=== PATIENT | female | born 1965 | race Caucasian/White ===

== ENCOUNTER 2017-09-27 14:09 | Emergency (ER) | payer SELFPAY ==
--- NOTE | 2017-09-27 14:38 | ER Document Report ---
ED Blood Pressure Problem - General Chief Complaint: High Blood Pressure Stated Complaint: HEADACHE, CHEST PAIN Time Seen by Provider: 09/27/17 14:33 Notes: 52-year-old female patient, obese, hypertensive, smoker who had a syncopal episode. Does not remember what happened. States that she had a severe headache for the last several days. Did not sleep last night because her blood pressure was high and her head was throbbing. States that her blood pressure was 250/120. States that she was admitted to the hospital at [facility] approximately 2 months ago for chest pain and hypertension. Spent 4 days in the hospital trying to get her blood pressure down. When she was discharged she never got her prescriptions filled and has continued to do the same things that she was doing prior to admission to the hospital at that time. States that her family members found her on the floor. Denies any contusion to her head. Denies any neck pain. States that she could not sleep last night her blood pressure is high so she drank a whole bunch of water last night and then drink much water this morning as well trying to get her blood pressure down because water helps with blood pressure. Denies any complaints at this time other than a headache. Does have some mild chest pain at this time. TRAVEL OUTSIDE OF THE [place] IN LAST 30 DAYS: No - HPI Patient complains to provider of: High blood pressure Onset: Just prior to arrival Onset/Duration: Sudden Quality of pain: Achy Severity: Moderate Pain Level: 3 - Related Data Allergies/Adverse Reactions: tramadol Allergy (Verified 09/27/17 14:20) Past Medical History - General Information source: Patient - Social History Smoking Status: Current Every Day Smoker Cigarette use (# per day): Yes Frequency of alcohol use: None Drug Abuse: None Lives with: Family Family History: Reviewed & Not Pertinent - Past Medical History Cardiac Medical History: Reports: Hx Hypertension Endocrine Medical History: Reports: Hx Hypothyroidism - Had hyper parathyroid had XRT now has hypo- GI Medical History: Reports: Hx Colonoscopy - Polypectomy Past Surgical History: Reports: Hx Cholecystectomy, Hx Hysterectomy - Immunizations Hx Diphtheria, Pertussis, Tetanus Vaccination: Yes Review of Systems - Review of Systems Constitutional: denies: Fever, Malaise, Weakness EENT: denies: Blurred vision, Difficulty swallowing, Mouth pain Cardiovascular: Chest pain, Syncope. denies: Palpitations, Heart racing, Dyspnea, Dizziness Respiratory: denies: Cough, Hurts to breathe, Short of breath, Wheezing Gastrointestinal: denies: Abdominal pain, Diarrhea, Nausea, Vomiting Female Genitourinary: denies: , Irregular period, Vaginal discharge, Vaginal bleeding Musculoskeletal: denies: Back pain, Joint pain, Muscle pain Skin: denies: Dryness, Lesions, Lumps, Rash Hematologic/Lymphatic: denies: Anemia, Blood clots, Easy bleeding, Easy bruising Neurological/Psychological: denies: Confusion, Weakness, Numbness Physical Exam - Vital signs Vitals: Resp Pulse Ox 19 96 09/27/17 14:34 09/27/17 14:34 Interpretation: Hypertensive, Bradycardic. No: Tachypneic, Febrile - General General appearance: Appears well, Alert - HEENT Head: Normocephalic, Atraumatic Eyes: Normal Pupils: PERRL - Respiratory Respiratory status: No respiratory distress Chest status: Nontender Breath sounds: Normal Chest palpation: Normal - Cardiovascular Rhythm: Bradycardia Heart sounds: Normal auscultation Murmur: No - Abdominal Inspection: Normal Distension: No distension Bowel sounds: Normal Tenderness: Nontender Organomegaly: No organomegaly - Back Back: Normal, Nontender - Extremities General upper extremity: Normal inspection, Nontender, Normal color, Normal ROM , Normal temperature General lower extremity: Normal inspection, Nontender, Normal color, Normal ROM , Normal temperature, Normal weight bearing. No: Jordyn's sign - Neurological Neuro grossly intact: Yes Cognition: Normal Orientation: AAOx4 Flavia Coma Scale Eye Opening: Spontaneous [place] Coma Scale Verbal: Oriented [place] Coma Scale Motor: Obeys Commands Flavia Coma Scale Total: 15 Speech: Normal Motor strength normal: LUE, RUE, LLE, RLE Sensory: Normal - Psychological Associated symptoms: Normal affect, Normal mood - Skin Skin Temperature: Warm Skin Moisture: Dry Skin Color: Normal Course - Re-evaluation Re-evalutation: 09/27/17 18:06 Patient self reports as a syncopal episode while at home. Unwitnessed. Recently discharged from [facility] after workup. Patient states that it was a few weeks ago but in reality it was in April. At that time she was advised to start on amlodipine, aspirin, Lipitor and lisinopril which she has not done. At that time she had CT angiogram of the chest, CT coronary artery angiogram, stress test, multiple cardiac labs, evaluation by raker buffing wheel. All of these findings were unremarkable. Patient states that she is not taking her medications. At this time do not have a clear understanding of why she had a syncopal episode. Of note the medical records received reports that she has had significant bradycardia while she was in the hospital but did not have any AV tameka blocking agents. Will discuss for admission versus observation versus discharge at this time. Patient does not want to stay by the way. 09/27/17 18:55 Repeat EKG performed. Heart rate in the 40s with a sinus bradycardia 47 and biphasic T-wave in V3. At this time patient saying that she feels like an elephant is sitting on obviously uncomfortable discharging her. I did not initially call for an admission due to the fact that she said she had already had multiple things done at [facility]. Records were received per above. Will consult with hospitalist for admission at this time 09/27/17 19:36 Patient having other episode of chest pressure. Heart rate bradycardia down into the low 40s. Blood pressure dropped. At that time she felt the worst. When her blood pressure came back up she said she was feeling better. Patient had only had a Percocet. At this time I did consult with the hospitalist for admission. We are concerned about symptomatic bradycardia and feel it would be more appropriate to have her seen at a facility that had fish skinning machine feeder as well as memorial counselor. Will call [facility] as she has been seen there prior to see if we can transfer her at this time. 09/27/17 20:05 At this time will transfer to [facility]. Dr. Devries accepting 09/27/17 21:43 Transport is available at this time. Patient reexamined. Remained stable for transport. - Vital Signs Vital signs: Temp Pulse Resp BP Pulse Ox 18 187/112 H 98 09/27/17 21:31 09/27/17 21:31 09/27/17 21:31 - Laboratory Result Diagrams: 09/27/17 14:38 09/27/17 14:38 Laboratory results interpreted by me: 09/27/17 09/27/17 09/27/17 14:38 14:38 15:49 RDW 14.4 H Sodium 146.0 H Est GFR (Non-Af Amer) 55 L Urine Blood SMALL H Ur Leukocyte Esterase LARGE H - EKG Interpretation by Me EKG shows normal: Sinus rhythm, Etta, Intervals, QRS Complexes, ST-T Waves Rate: Bradycardia Critical Care Note - Critical Care Note Total time excluding time spent on procedures (mins): 60 Comments: Uncontrolled hypertension, symptomatic bradycardia Discharge - Discharge Clinical Impression: Hypertensive emergency, Symptomatic bradycardia, Syncope and collapse Condition: Good Disposition: [facility]
--- NOTE | 2017-09-27 15:20 | RADIOLOGY REPORT (SQ) ---
EXAM DESCRIPTION: CT HEAD WITHOUT COMPLETED DATE/TIME: 09/27/2017 3:10 pm REASON FOR STUDY: headache, syncope COMPARISON: None. TECHNIQUE: Axial images acquired through the brain without intravenous contrast. Images reviewed wi th bone, brain and subdural windows. Images stored on PACS. All CT scanners at this facility use dose modulation, iterative reconstruction, and/or weight based d osing when appropriate to reduce radiation dose to as low as reasonably achievable (ALARA). [facility]: Dose Right [facility]: CareDose [facility]: Dose Right [facility]: Teradose 4D [facility]: StandardNine RADIATION DOSE: CT Rad equipment meets quality standard of care and radiation dose reduction techniq ues were employed. CTDIvol: 53.2 mGy. DLP: 991 mGy-cm. mGy. LIMITATIONS: None. FINDINGS: VENTRICLES: Normal size and contour. CEREBRUM: No masses. No hemorrhage. No midline shift. No evidence for acute infarction. Normal gra y/white matter differentiation. No areas of low density in the white matter. CEREBELLUM: No masses. No hemorrhage. No alteration of density. No evidence for acute infarction. EXTRAAXIAL SPACES: No fluid collections. No masses. ORBITS AND GLOBE: No intra- or extraconal masses. Normal contour of globe without masses. CALVARIUM: No fracture. PARANASAL SINUSES: No fluid or mucosal thickening. SOFT TISSUES: No mass or hematoma. OTHER: No other significant finding. IMPRESSION: NORMAL BRAIN CT WITHOUT CONTRAST. EVIDENCE OF ACUTE STROKE: NO. COMMENT: Quality ID # [id number]: Final reports with documentation of one or more dose reduction techniques (e.g., Automated exposure control, adjustment of the mA and/or kV according to patient size, use of iterative reconstruction technique) TECHNICAL DOCUMENTATION: JOB ID: [id number] [employer]- All Rights Reserved Reading location - IP/workstation name: [email or web address]
[2017-09-27 15:22] LABS: ABSOLUTE BASOPHILS # (AUTO) 0.1 10^3/uL (0.0-0.2); ABSOLUTE EOSINOPHILS # (AUTO) 0.2 10^3/uL (0.0-0.6); ABSOLUTE LYMPHOCYTES (AUTO) 1.8 10^3/uL (0.5-4.7); ABSOLUTE MONOCYTES (AUTO) 0.3 10^3/uL (0.1-1.4); ABSOLUTE NEUT (AUTO) 4.5 10^3/uL (1.7-8.2); BASOPHILS % (AUTO) 1.1 % (0-2); EOSINOPHILS % (AUTO) 2.3 % (0-6); HEMATOCRIT 39.2 % (36.0-47.0); HEMOGLOBIN 13.9 g/dL (12.0-15.5); LYMPHOCYTES % (AUTO) 26.1 % (13-45); MEAN CORPUSCULAR HEMOGLOBIN 31.9 pg (27.0-33.4); MEAN CORPUSCULAR HGB CONC 35.5 g/dL (32.0-36.0); MEAN CORPUSCULAR VOLUME 90 fl (80-97); MONOCYTES % (AUTO) 4.6 % (3-13); PLATELET COUNT 166 10^3/uL (150-450); RED BLOOD COUNT 4.36 10^6/uL (3.72-5.28); RED CELL DISTRIBUTION WIDTH 14.4 % (11.5-14.0); SEGMENTED NEUTROPHILS % (AUTO) 65.9 % (42-78); TOTAL CELLS COUNTED % (AUTO) 100 %; WHITE BLOOD COUNT 6.8 10^3/uL (4.0-10.5)
[2017-09-27 15:30] LABS: ALANINE AMINOTRANSFERASE 28 U/L (9-52); ALBUMIN 3.8 g/dL (3.5-5.0); ALKALINE PHOSPHATASE 54 U/L (38-126); ANION GAP 12 (5-19); ASPARTATE AMINO TRANSFERASE 25 U/L (14-36); BILIRUBIN,DIRECT 0.3 mg/dL (0.0-0.4); BILIRUBIN,TOTAL 0.7 mg/dL (0.2-1.3); BLOOD UREA NITROGEN 18 mg/dL (7-20); CALCIUM 9.3 mg/dL (8.4-10.2); CARBON DIOXIDE 28 mmol/L (22-30); CHLORIDE 106 mmol/L (98-107); CREATINE KINASE 88 U/L (30-135); GLUCOSE 79 mg/dL (75-110); POTASSIUM 3.6 mmol/L (3.6-5.0); TOTAL PROTEIN 6.6 g/dL (6.3-8.2)
--- NOTE | 2017-09-27 15:32 | RADIOLOGY REPORT (SQ) ---
EXAM DESCRIPTION: CHEST SINGLE VIEW COMPLETED DATE/TIME: 09/27/2017 3:21 pm REASON FOR STUDY: syncope COMPARISON: None. EXAM PARAMETERS: NUMBER OF VIEWS: One view. TECHNIQUE: Single frontal radiographic view of the chest acquired. RADIATION DOSE: NA LIMITATIONS: None. FINDINGS: LUNGS AND PLEURA: No opacities, masses or pneumothorax. No pleural effusion. MEDIASTINUM AND HILAR STRUCTURES: No masses. Contour normal. HEART AND VASCULAR STRUCTURES: Heart normal in size. Normal vasculature. BONES: No acute findings. HARDWARE: None in the chest. OTHER: No other significant finding. IMPRESSION: NO ACUTE RADIOGRAPHIC FINDING IN THE CHEST. TECHNICAL DOCUMENTATION: JOB ID: [id number] [employer]- All Rights Reserved Reading location - IP/workstation name: [email or web address]
[2017-09-27 15:38] LABS: CREATINE KINASE MB 1.39 ng/mL (<4.55)
[2017-09-27 15:40] LABS: TROPONIN I < 0.012 ng/mL
[2017-09-27] MEDS ORDERED: OXYCODONE-ACETAMINOPHEN 5-325 MG TABLET PO ONE (16:50)
[2017-09-27] MEDS ORDERED: HYDRALAZINE HCL 25 MG TABLET PO ONE (16:51)
--- NOTE | 2017-09-27 17:58 | EKG REPORT ---
SEVERITY:- BORDERLINE ECG - SINUS RHYTHM BORDERLINE T ABNORMALITIES, INFERIOR LEADS : Confirmed by: Norah Cook 27-Sep-2017 17:58:15
[2017-09-27 18:28] LABS: AMORPHOUS SEDIMENT,URINE TRACE /HPF; APPEARANCE,URINE CLOUDY; BILIRUBIN,URINE NEGATIVE (NEGATIVE); COLOR,URINE YELLOW; GLUCOSE, URINE NEGATIVE (NEGATIVE); KETONES,URINE NEGATIVE (NEGATIVE); LEUKOCYTE ESTERASE,URINE LARGE (NEGATIVE); NITRITE,URINE NEGATIVE (NEGATIVE); PROTEIN,URINE NEGATIVE (NEGATIVE); URINE SPECIFIC GRAVITY 1.011; UROBILINOGEN,URINE NEGATIVE mg/dL (<2.0)
[2017-09-27 18:33] LABS: URINE AMPHETAMINES SCREEN NEGATIVE; URINE BARBITURATES SCREEN NEGATIVE; URINE BENZODIAZEPINES SCREEN NEGATIVE; URINE COCAINE SCREEN NEGATIVE; URINE MARIJUANA (THC) SCREEN NEGATIVE; URINE METHADONE SCREEN NEGATIVE; URINE PHENCYCLIDINE SCREEN NEGATIVE
[2017-09-27] MEDS ORDERED: ASPIRIN 325 MG TABLET PO ONE (20:05)
[2017-09-27] MEDS ORDERED: CIPROFLOXACIN HCL 500 MG TABLET PO ONE (20:24)
--- NOTE | 2017-09-27 21:35 | EKG REPORT ---
SEVERITY:- BORDERLINE ECG - SINUS RHYTHM BORDERLINE T ABNORMALITIES, ANT-LAT LEADS : Confirmed by: Norah Cook 27-Sep-2017 21:34:37
--- NOTE | 2017-09-27 21:35 | EKG REPORT ---
SEVERITY:- BORDERLINE ECG - SINUS BRADYCARDIA BORDERLINE T WAVE ABNORMALITIES : Confirmed by: Norah Cook 27-Sep-2017 21:34:48
[2017-09-27 21:48] VITALS: BP 168/102
== END 2017-09-27 21:49 | disposition short-term general hospital (02) ==
LOC: ER 14:09
DX: I16.1 Hypertensive emergency (principal); I10 Essential (primary) hypertension; T46.4X6A Underdosing of angiotensin-converting-enzyme inhibitors, initial encounter; T39.016A Underdosing of aspirin, initial encounter; T46.6X6A Underdosing of antihyperlipidemic and antiarteriosclerotic drugs, initial encounter; T46.1X6A Underdosing of calcium-channel blockers, initial encounter; Z91.128 Patient's intentional underdosing of medication regimen for other reason; Z91.14 Patient's other noncompliance with medication regimen; R00.1 Bradycardia, unspecified; R55 Syncope and collapse; R07.89 Other chest pain; R51 Headache; E66.9 Obesity, unspecified; F17.210 Nicotine dependence, cigarettes, uncomplicated; Z88.5 Allergy status to narcotic agent
CPT/HCPCS: 36415; 70450; 71045; 80053; 80307; 81001; 82550; 82553; 84484; 84703; 85025; 85379; 87086; 87088; 93005; 93010; 99291

== ENCOUNTER 2017-10-04 09:20 | Inpatient (IN) | payer SELFPAY ==
[2017-10-04] MEDS ORDERED: ASPIRIN 81 MG TABLET, CHEWABLE PO ONE (09:48)
[2017-10-04] MEDS ORDERED: NORMAL SALINE 1000 ML 1,000 ML IV ONE ×2 (09:49→13:14)
--- NOTE | 2017-10-04 09:51 | ER Document Report ---
ED Medical Screen (RME) - General Chief Complaint: Vomiting Stated Complaint: VOMITING Time Seen by Provider: 10/04/17 09:48 Notes: 52 years old female presents live with midsternal chest pain since last night. It is on and off. Nonradiating. Not associated with any nausea vomiting. Denies any palpitation or diaphoresis. She was treated and evaluated at [facility] for chest pain and elevated blood pressure. This started on 10 of amlodipine and 20 of lisinopril. Prior to that she was not taking any blood pressure medicines. Since she has been taking this medicine she is feeling dizzy lightheaded nauseous general malaise and feeling weak. Particularly when she stands up and start doing her daily activities. Presents today with a blood pressure of 102/80. TRAVEL OUTSIDE OF THE [place] IN LAST 30 DAYS: No - Related Data Allergies/Adverse Reactions: tramadol Allergy (Verified 10/04/17 09:21) Past Medical History - Social History Chew tobacco use (# tins/day): No Frequency of alcohol use: None Drug Abuse: None - Past Medical History Cardiac Medical History: Reports: Hx Hypertension Endocrine Medical History: Reports: Hx Hypothyroidism - Had hyper parathyroid had XRT now has hypo- Renal/ Medical History: Denies: Hx Peritoneal Dialysis GI Medical History: Reports: Hx Colonoscopy - Polypectomy Past Surgical History: Reports: Hx Cholecystectomy, Hx Hysterectomy - Immunizations Hx Diphtheria, Pertussis, Tetanus Vaccination: Yes Physical Exam - Vital signs Vitals: Temp Pulse Resp BP Pulse Ox 98.9 F 79 16 102/78 96 10/04/17 09:33 10/04/17 09:33 10/04/17 09:33 10/04/17 09:33 10/04/17 09:33 Course - Vital Signs Vital signs: Temp Pulse Resp BP Pulse Ox 98.9 F 79 16 102/78 96 10/04/17 09:33 10/04/17 09:33 10/04/17 09:33 10/04/17 09:33 10/04/17 09:33
[2017-10-04 10:16] LABS: ABSOLUTE BASOPHILS # (AUTO) 0.1 10^3/uL (0.0-0.2); ABSOLUTE LYMPHOCYTES (AUTO) 1.1 10^3/uL (0.5-4.7); ABSOLUTE MONOCYTES (AUTO) 0.5 10^3/uL (0.1-1.4); ABSOLUTE NEUT (AUTO) 15.6 10^3/uL (1.7-8.2); BASOPHILS % (AUTO) 0.3 % (0-2); EOSINOPHILS % (AUTO) 0.1 % (0-6); HEMATOCRIT 35.8 % (36.0-47.0); HEMOGLOBIN 12.5 g/dL (12.0-15.5); LYMPHOCYTES % (AUTO) 6.3 % (13-45); MEAN CORPUSCULAR HEMOGLOBIN 31.9 pg (27.0-33.4); MEAN CORPUSCULAR HGB CONC 34.9 g/dL (32.0-36.0); MEAN CORPUSCULAR VOLUME 91 fl (80-97); MONOCYTES % (AUTO) 3.1 % (3-13); PLATELET COUNT 116 10^3/uL (150-450); RED BLOOD COUNT 3.92 10^6/uL (3.72-5.28); RED CELL DISTRIBUTION WIDTH 13.9 % (11.5-14.0); SEGMENTED NEUTROPHILS % (AUTO) 90.2 % (42-78); TOTAL CELLS COUNTED % (AUTO) 100 %; WHITE BLOOD COUNT 17.3 10^3/uL (4.0-10.5)
[2017-10-04 10:45] LABS: ALANINE AMINOTRANSFERASE 26 U/L (9-52); ALBUMIN 3.8 g/dL (3.5-5.0); ALKALINE PHOSPHATASE 71 U/L (38-126); ANION GAP 14 (5-19); ASPARTATE AMINO TRANSFERASE 37 U/L (14-36); BILIRUBIN,DIRECT 0.8 mg/dL (0.0-0.4); BILIRUBIN,TOTAL 1.5 mg/dL (0.2-1.3); BLOOD UREA NITROGEN 25 mg/dL (7-20); CALCIUM 9.2 mg/dL (8.4-10.2); CARBON DIOXIDE 23 mmol/L (22-30); CHLORIDE 107 mmol/L (98-107); CREATINE KINASE 166 U/L (30-135); GLUCOSE 115 mg/dL (75-110); POTASSIUM 3.3 mmol/L (3.6-5.0); SODIUM 144.2 mmol/L (137-145); TOTAL PROTEIN 7.3 g/dL (6.3-8.2)
[2017-10-04 10:56] LABS: CREATINE KINASE MB 0.62 ng/mL (<4.55); TROPONIN I 0.024 ng/mL
--- NOTE | 2017-10-04 12:15 | RADIOLOGY REPORT (SQ) ---
EXAM DESCRIPTION: CHEST SINGLE VIEW COMPLETED DATE/TIME: 10/04/2017 12:06 pm REASON FOR STUDY: Chest pain COMPARISON: None. EXAM PARAMETERS: NUMBER OF VIEWS: One view. TECHNIQUE: Single frontal radiographic view of the chest acquired. RADIATION DOSE: NA LIMITATIONS: None. FINDINGS: LUNGS AND PLEURA: No opacities, masses or pneumothorax. No pleural effusion. MEDIASTINUM AND HILAR STRUCTURES: No masses. Contour normal. HEART AND VASCULAR STRUCTURES: Heart normal in size. Normal vasculature. BONES: No acute findings. HARDWARE: None in the chest. OTHER: No other significant finding. IMPRESSION: NO ACUTE RADIOGRAPHIC FINDING IN THE CHEST. TECHNICAL DOCUMENTATION: JOB ID: [id number] [employer]- All Rights Reserved Reading location - IP/workstation name: [email or web address]
--- NOTE | 2017-10-04 13:14 | ER Document Report ---
ED General - General Mode of Arrival: Ambulatory Information source: Patient TRAVEL OUTSIDE OF THE [place] IN LAST 30 DAYS: No <ANGELO DAVIES - Last Filed: 10/04/17 19:04> <JACEY SOLORZANO - Last Filed: 10/04/17 19:08> - General Chief Complaint: Vomiting Stated Complaint: VOMITING Time Seen by Provider: 10/04/17 09:48 Notes: Patient is a 52 year old female presenting to the emergency department complaining of back pain onset yesterday. Patient was recently transferred to [facility] a few days a few days ago and diagnosed with HTN and bradycardia and placed on HTN medication and a holter monitor. Patient states she feels like her hypertension medication is too strong for her, further stating she feels weak and tired. She also complains of nausea, vomiting, and decreased urination frequency. Patient denies any fevers. Patient was discharged home from [facility] with Amlodipine, Lisinopril and Atorvastatin. Patient denies having a cath or a cardiac stress test performed. (ANGELO DAVIES) - Related Data Allergies/Adverse Reactions: tramadol Allergy (Verified 10/04/17 09:21) Past Medical History - General Information source: Patient - Social History Smoking Status: Never Smoker Chew tobacco use (# tins/day): No Frequency of alcohol use: None Drug Abuse: None Family History: Reviewed & Not Pertinent Patient has suicidal ideation: No Patient has homicidal ideation: No - Past Medical History Cardiac Medical History: Reports: Hx Hypertension Endocrine Medical History: Reports: Hx Hypothyroidism - Had hyper parathyroid had XRT now has hypo- GI Medical History: Reports: Hx Colonoscopy - Polypectomy Past Surgical History: Reports: Hx Section - x3, Hx Cholecystectomy, Hx Hysterectomy - Immunizations Hx Diphtheria, Pertussis, Tetanus Vaccination: Yes <ANGELO DAVIES - Last Filed: 10/04/17 19:04> Review of Systems - Review of Systems Constitutional: See HPI, Weakness EENT: No symptoms reported Cardiovascular: No symptoms reported Respiratory: No symptoms reported Gastrointestinal: See HPI, Nausea, Vomiting Genitourinary: See HPI Female Genitourinary: No symptoms reported Musculoskeletal: No symptoms reported Skin: No symptoms reported Hematologic/Lymphatic: No symptoms reported Neurological/Psychological: No symptoms reported -: Yes All other systems reviewed and negative <ANGELO DAVIES - Last Filed: 10/04/17 19:04> Physical Exam <ANGELO DAVIES - Last Filed: 10/04/17 19:04> <JACEY SOLORZANO - Last Filed: 10/04/17 19:08> - Vital signs Vitals: Temp Pulse Resp BP Pulse Ox 98.9 F 79 16 102/78 96 10/04/17 09:33 10/04/17 09:33 10/04/17 09:33 10/04/17 09:33 10/04/17 09:33 - Notes Notes: GENERAL: Alert, interacts well. No acute distress. HEAD: Normocephalic, atraumatic. EYES: Pupils equal, round, and reactive to light. Extraocular movements intact. ENT: Oral mucosa moist, tongue midline. NECK: Full range of motion. Supple. Trachea midline. LUNGS: Clear to auscultation bilaterally, no wheezes, rales, or rhonchi. No respiratory distress. HEART: Regular rate and rhythm. No murmurs, gallops, or rubs. ABDOMEN: Soft, LLQ tenderness to palpation, no guarding, rigidity or rebound. Non-distended. Bowel sounds present in all 4 quadrants. EXTREMITIES: Moves all 4 extremities spontaneously. NEUROLOGICAL: Alert and oriented x3. Normal speech. PSYCH: Normal affect, normal mood. SKIN: Warm, dry, normal turgor. No rashes or lesions noted. (ANGELO DAVIES) Course - Laboratory Result Diagrams: 10/04/17 09:56 10/04/17 09:56 <ANGELO DAVIES - Last Filed: 10/04/17 19:04> - Laboratory Result Diagrams: 10/04/17 09:56 10/04/17 09:56 <JACEY SOLORZANO - Last Filed: 10/04/17 19:08> - Re-evaluation Re-evalutation: 10/04/17 15:39 CBC shows leukocytosis at 17.3 which is new, hemoglobin is fairly stable at 12.5 , 1 week ago was 13.9, platelets slightly low low at 116, chemistries show acute renal failure with a BUN of 25 and creatinine 1 of 1.97, this indicates acute renal failure as these are both acutely elevated since they were checked last week, similarly BUN direct and total bilirubin are both elevated LFTs are otherwise normal, troponin is negative at 0.024 however this is higher than when she was transferred, urinalysis shows moderate blood and large leukocyte esterase, this is been sent for culture, there only 2 squamous epithelial cells so I doubt contamination. Given patient's tenderness to palpation in the left lower quadrant which was quite market on examination I did send the patient for CT scan of the abdomen pelvis, I suspected diverticulitis which is why did not use oral contrast and no IV contrast was given given her elevated creatinine. The CT scan showed fairly extensive soft tissue stranding in the mesenteric fat in the left lower quadrant and left pelvis as well as the central mesenteric fat. I discussed this with Dr. Villagomez who did a second review of the CAT scan as well as with Dr. Cervantes the surgeon who was medical care evaluation specialist and both feel this likely represents a retroperitoneal bleed. At this time we will simply trend hemoglobins. Her blood pressure has actually improved after receiving fluids. Given the acute renal failure, the retroperitoneal bleed from an unknown etiology and the intermittent chest and back pain I do feel it is prudent to admit this patient to the hospital to continue trending her cardiac enzymes, hydrate her and see if we can find an etiology for her acute renal failure beyond having had antihypertensives started 1 week ago. Patient will also continue to need serial hemoglobins. I have attempted to call the hospitalist, he is in the emergency department and will come see me when he stands seeing his patient. Patient does have a urinary tract infection, she has been started on Rocephin, she is also been hydrated for the renal failure. 10/04/17 16:05 Repeat troponin has decreased nicely. I have discussed this patient with Dr. Hart and he agrees to admit the patient to his service on the telemetry care unit. (JACEY SOLORZANO) - Vital Signs Vital signs: Temp Pulse Resp BP Pulse Ox 98.1 F 64 16 141/88 H 99 10/04/17 18:55 10/04/17 14:47 10/04/17 18:55 10/04/17 18:55 10/04/17 18:55 - Laboratory Laboratory results interpreted by me: 10/04/17 10/04/17 10/04/17 09:56 09:56 14:17 WBC 17.3 H Hct 35.8 L Plt Count 116 L Seg Neutrophils % 90.2 H Lymphocytes % 6.3 L Absolute Neutrophils 15.6 H Potassium 3.3 L BUN 25 H Creatinine 1.97 H Est GFR ( Amer) 32 L Est GFR (Non-Af Amer) 27 L Glucose 115 H Total Bilirubin 1.5 H Direct Bilirubin 0.8 H AST 37 H Creatine Kinase 166 H Urine Protein 100 H Urine Blood MODERATE H Urine Urobilinogen 2.0 H Ur Leukocyte Esterase LARGE H - EKG Interpretation by Me Additional EKG results interpreted by me: 10/04/17 15:42 EKG shows sinus rhythm at a rate of 73, normal axis, normal intervals ventricular conduction delay, no ST segment elevations or depressions, nonspecific T-wave inversions noted in lead III and T-wave flattening noted in lead aVF, aVL, lead II per my interpretation. (JACEY SOLORZANO) Discharge <ANGELO DAVIES - Last Filed: 10/04/17 19:04> - Discharge Admitting Provider: Hospitalist - [facility] Admitted: Telemetry <JACEY SOLORZANO - Last Filed: 10/04/17 19:08> - Discharge Clinical Impression: Retroperitoneal bleed Acute renal failure Qualifiers: Acute renal failure type: unspecified Qualified Code(s): N17.9 - Acute kidney failure, unspecified Nausea and vomiting Qualifiers: Vomiting type: unspecified Vomiting Intractability: intractable Qualified Code( s): R11.2 - Nausea with vomiting, unspecified Condition: Fair Disposition: ADMITTED INPATIENT Scribe Attestation: 10/04/17 19:08 I personally performed the services described in the documentation, reviewed and edited the documentation which was dictated to the scribe in my presence, and it accurately records my words and actions. (JACEY SOLORZANO) Scribe Documentation - Scribe Written by Alexandra:: Alexandra Harry, 10/04/2017 14:18 acting as scribe for :: Jordy <ANGELO DAVIES - Last Filed: 10/04/17 19:04>
--- NOTE | 2017-10-04 13:19 | EKG REPORT ---
SEVERITY:- ABNORMAL ECG - SINUS RHYTHM NONSPECIFIC INTRAVENTRICULAR CONDUCTION DELAY : Confirmed by: Gillian Humphrey MD 04-Oct-2017 13:18:43
--- NOTE | 2017-10-04 14:15 | RADIOLOGY REPORT (SQ) ---
EXAM DESCRIPTION: CT ABD/PELVIS NO ORAL OR IV COMPLETED DATE/TIME: 10/04/2017 1:44 pm REASON FOR STUDY: LLQ TTP, no dye d/t elevated Cr COMPARISON: None. TECHNIQUE: CT scan of the abdomen and pelvis performed without intravenous or oral contrast. Images reviewed with lung, soft tissue, and bone windows. Reconstructed coronal and sagittal MPR images revi ewed. All images stored on PACS. All CT scanners at this facility use dose modulation, iterative reconstruction, and/or weight based d osing when appropriate to reduce radiation dose to as low as reasonably achievable (ALARA). [facility]: Dose Right [facility]: CareDose [facility]: Dose Right [facility]: Teradose 4D [facility]: ToughSurgery RADIATION DOSE: CT Rad equipment meets quality standard of care and radiation dose reduction techniq ues were employed. CTDIvol: 21.0 mGy. DLP: 1195 mGy-cm.mGy. LIMITATIONS: None. FINDINGS: LOWER CHEST: No significant findings. No nodules or infiltrates. NON-CONTRASTED LIVER, SPLEEN, ADRENALS: Evaluation limited by lack of IV contrast. No identified sign ificant masses. PANCREAS: No masses. No peripancreatic inflammatory changes. GALLBLADDER: Status post cholecystectomy RIGHT KIDNEY AND URETER: No suspicious masses. Assessment limited by lack of IV contrast. No signif icant calcifications. No hydronephrosis or hydroureter. LEFT KIDNEY AND URETER: No suspicious masses. Assessment limited by lack of IV contrast. No signifi cant calcifications. No hydronephrosis or hydroureter. AORTA AND RETROPERITONEUM: No aneurysm. No retroperitoneal masses or adenopathy. BOWEL AND PERITONEAL CAVITY: There is fairly extensive soft tissue stranding in the mesenteric fat in the left lower quadrant and left pelvis as well as the central mesenteric fat in the lower abdomen t hat does not appear to be associated with any adjacent structure. This could be related to an edemat ous, inflammatory, or infectious process. The possibility of an underlying mass or retroperitoneal b leed cannot be excluded. There are some prominent vascular structures on the left and a component of pelvic congestion syndrome cannot be excluded. Clinical correlation is recommended APPENDIX: Normal. PELVIS, BLADDER, AND ABDOMINAL WALL No free fluid. Bladder normal. Small umbilical hernia containing fat is identified. BONES: No significant findings. OTHER: No other significant finding. IMPRESSION: Fairly extensive soft tissue stranding in the mesenteric fat in the left lower quadrant and left pelvis as well as the central mesenteric fat in the lower abdomen as noted above. Different ial possibilities are as noted above. See above discussion. Clinical correlation is recommended. O ther findings as noted above COMMENT: Quality ID # [id number]: Final reports with documentation of one or more dose reduction techniques (e.g., Automated exposure control, adjustment of the mA and/or kV according to patient size, use of iterative reconstruction technique) TECHNICAL DOCUMENTATION: JOB ID: [id number] [employer]- All Rights Reserved Reading location - IP/workstation name: [email or web address]
[2017-10-04 14:47] LABS: APPEARANCE,URINE CLOUDY; BILIRUBIN,URINE NEGATIVE (NEGATIVE); GLUCOSE, URINE NEGATIVE (NEGATIVE); KETONES,URINE NEGATIVE (NEGATIVE); LEUKOCYTE ESTERASE,URINE LARGE (NEGATIVE); NITRITE,URINE NEGATIVE (NEGATIVE); PROTEIN,URINE 100 mg/dL (NEGATIVE); URINE SPECIFIC GRAVITY 1.025
[2017-10-04 14:48] LABS: COLOR,URINE YELLOW
[2017-10-04] MEDS ORDERED: CEFTRIAXONE 1 GM/D5W RTU 1 GM/50 ML RTUPB IV ONE (15:19)
[2017-10-04] MEDS ORDERED: MORPHINE SULFATE 10 MG/ML INJ IV ONE (16:54)
[2017-10-04] MEDS ORDERED: ONDANSETRON HCL INJ/PF 4 MG/2 ML SDV IV ONE (16:54)
[2017-10-04] MEDS ORDERED: ONDANSETRON 4 MG TAB.RAPDIS PO PRN (17:26)
--- NOTE | 2017-10-04 17:35 | PDOC H&P ---
History of Present Illness Admission Date/PCP: 10/04/17 16:17 Patient complains of: Multiple complaints History of Present Illness: ANMOL STEINBERG is a 52 year old female who apparently was hospitalized at a different hospital for bradycardia and hypertension and she was discharged on hypertension medications not too long ago. She presents to the emergency room was constellation of symptoms including weakness fatigue poor oral intake abdominal discomfort nausea and vomiting and chest pain that had been over the past 2-3 days. EKG and troponin are unremarkable so far. Chest x-ray is unremarkable. CT scan of the abdomen was questionable retroperitoneal bleed and the surgeon environmental field office manager was notified and he is okay with admission and will be consulted. She also has elevated creatinine more than her baseline. And her urinalysis is abnormal but she denied any urinary symptoms. Past Medical History Cardiac Medical History: Reports: Hypertension Endocrine Medical History: Reports: Hypothyroidism - Had hyper parathyroid had XRT now has hypo- Past Surgical History Past Surgical History: Reports: Section - x3, Cholecystectomy, Hysterectomy Social History Smoking Status: Never Smoker Family History Family History: Reviewed & Not Pertinent Parental Family History Reviewed: Yes Children Family History Reviewed: Yes Sibling(s) Family History Reviewed.: Yes Medication/Allergy Home Medications: Amlodipine Besylate [Norvasc 10 mg Tablet] 10 mg PO DAILY 10/04/17 Atorvastatin Calcium [Lipitor 20 mg Tablet] 20 mg PO QHS 10/04/17 Lisinopril [Prinivil] 20 mg PO DAILY 10/04/17 Allergies/Adverse Reactions: tramadol Allergy (Verified 10/04/17 09:21) Review of Systems All systems: reviewed and no additional remarkable complaints except as stated Physical Exam Vital Signs: Temp Pulse Resp BP Pulse Ox 98.0 F 64 24 H 125/77 98 10/04/17 14:47 10/04/17 14:47 10/04/17 17:01 10/04/17 17:00 10/04/17 17:01 Intake & Output 10/03/17 10/04/17 10/05/17 06:59 06:59 06:59 Intake Total 50 Balance 50 General appearance: PRESENT: no acute distress, obese, well-developed, well- nourished Head exam: PRESENT: atraumatic, normocephalic Eye exam: PRESENT: conjunctiva pink, EOMI, PERRLA. ABSENT: scleral icterus Ear exam: PRESENT: normal external ear exam Mouth exam: PRESENT: moist, tongue midline Throat exam: ABSENT: post pharyngeal erythema Neck exam: ABSENT: carotid bruit, JVD, lymphadenopathy, thyromegaly Respiratory exam: PRESENT: clear to auscultation key. ABSENT: rales, rhonchi, wheezes Cardiovascular exam: PRESENT: RRR. ABSENT: diastolic murmur, rubs, systolic murmur Pulses: PRESENT: normal dorsalis pedis pul GI/Abdominal exam: PRESENT: normal bowel sounds, rebound, soft, tenderness. ABSENT: mass, organolmegaly Extremities exam: PRESENT: full ROM. ABSENT: calf tenderness, clubbing, pedal edema Neurological exam: PRESENT: alert, awake, oriented to person, oriented to place , oriented to time, oriented to situation, CN II-XII grossly intact. ABSENT: motor sensory deficit Psychiatric exam: PRESENT: appropriate affect, normal mood. ABSENT: homicidal ideation, suicidal ideation Skin exam: PRESENT: dry, intact, warm. ABSENT: cyanosis, rash Results Impressions: Chest X-Ray 10/04/17 09:48 IMPRESSION: NO ACUTE RADIOGRAPHIC FINDING IN THE CHEST. Abdomen/Pelvis CT 10/04/17 13:14 IMPRESSION: Fairly extensive soft tissue stranding in the mesenteric fat in the left lower quadrant and left pelvis as well as the central mesenteric fat in the lower abdomen as noted above. Differential possibilities are as noted above. See above discussion. Clinical correlation is recommended. Other findings as noted above Assessment & Plan - Diagnosis (1) Acute renal failure Qualifiers: Acute renal failure type: unspecified Qualified Code(s): N17.9 - Acute kidney failure, unspecified Is this a current diagnosis for this admission?: Yes Plan: We will hold her lisinopril Start IV fluids Check urine studies and renal ultrasound Monitor renal function and electrolytes (2) Nausea and vomiting Qualifiers: Vomiting type: unspecified Vomiting Intractability: intractable Qualified Code(s): R11.2 - Nausea with vomiting, unspecified Is this a current diagnosis for this admission?: Yes Plan: Zofran as needed (3) Retroperitoneal bleed Is this a current diagnosis for this admission?: Yes Plan: Hemodynamically stable The surgeon environmental field office manager Dr. gunn reviewed the scan with radiology and he is okay with admission and we have consulted him officially
[2017-10-04] MEDS: NORMAL SALINE 1000 ML 1,000 ML IV PRN ×2 (17:53→19:21)
[2017-10-04] MEDS: MORPHINE SULFATE 10 MG/ML INJ IV PRN (19:19)
--- NOTE | 2017-10-04 21:02 | RADIOLOGY REPORT (SQ) ---
EXAM DESCRIPTION: U/S RETROPERITON LTD COMPLETED DATE/TIME: 10/04/2017 8:38 pm REASON FOR STUDY: renal failure COMPARISON: None. TECHNIQUE: Dynamic and static grayscale images acquired of the kidneys and bladder and recorded on P ACS. Additional selected color Doppler and spectral images recorded. LIMITATIONS: None. FINDINGS: RIGHT KIDNEY: Normal size, 11.4 cm. Normal echogenicity. No solid or suspicious mack s. No hydronephrosis. No calcifications. LEFT KIDNEY: Normal size, 13 cm. Normal echogenicity. No solid or suspicious masses. No hydron ephrosis. No calcifications. BLADDER: Urinary bladder is normal in appearance. Ureteral jets were not seen. OTHER FINDINGS: No other significant finding. IMPRESSION: NORMAL RENAL AND BLADDER ULTRASOUND. TECHNICAL DOCUMENTATION: JOB ID: [id number] [employer]- All Rights Reserved Reading location - IP/workstation name: [email or web address]
[2017-10-05] MEDS: METRONIDAZOLE 500 MG/NS RTU 500 MG/100 ML RTUPB IV SCH ×4 (00:39→22:30)
[2017-10-05] MEDS: MORPHINE SULFATE 10 MG/ML INJ IV PRN ×3 (00:40→11:28)
[2017-10-05] MEDS: ACETAMINOPHEN 325 MG TABLET PO PRN ×2 (01:23→11:47)
[2017-10-05 04:58] LABS: HEMATOCRIT 32.1 % (36.0-47.0); HEMOGLOBIN 11.3 g/dL (12.0-15.5); MEAN CORPUSCULAR HGB CONC 35.4 g/dL (32.0-36.0); MEAN CORPUSCULAR VOLUME 91 fl (80-97); PLATELET COUNT 100 10^3/uL (150-450); RED BLOOD COUNT 3.54 10^6/uL (3.72-5.28); RED CELL DISTRIBUTION WIDTH 14.3 % (11.5-14.0); WHITE BLOOD COUNT 11.6 10^3/uL (4.0-10.5)
[2017-10-05 05:19] LABS: ALANINE AMINOTRANSFERASE 35 U/L (9-52); ALBUMIN 2.7 g/dL (3.5-5.0); ALKALINE PHOSPHATASE 59 U/L (38-126); ANION GAP 11 (5-19); ASPARTATE AMINO TRANSFERASE 30 U/L (14-36); BILIRUBIN,DIRECT 0.8 mg/dL (0.0-0.4); BILIRUBIN,TOTAL 1.1 mg/dL (0.2-1.3); BLOOD UREA NITROGEN 23 mg/dL (7-20); CALCIUM 7.8 mg/dL (8.4-10.2); CARBON DIOXIDE 22 mmol/L (22-30); CHLORIDE 109 mmol/L (98-107); GLUCOSE 95 mg/dL (75-110); POTASSIUM 3.4 mmol/L (3.6-5.0); SODIUM 142.1 mmol/L (137-145); TOTAL PROTEIN 5.4 g/dL (6.3-8.2)
[2017-10-05] MEDS: NORMAL SALINE 1000 ML 1,000 ML IV PRN ×2 (06:06→18:21)
--- NOTE | 2017-10-05 06:47 | PDOC CONSULTATION ---
Consultation Consult reason:: Retroperitoneal stranding seen on CT scan, abdominal pain History of Present Illness Admission Date/PCP: 10/04/17 16:17 History of Present Illness: ANMOL STEINBERG is a 52 year old female seen in consultation at the request of the hospitalist service. This 52-year-old female complains of abdominal pain for the last 2-3 days. It is situated in the left lower quadrant. It is sharp and stabbing. It is moderate in intensity, she rates it as 6 out of 10. Patient denies any recent trauma, use of blood thinners, history of infections ( diverticulitis, complicated UTI), or other pertinent history. The patient denies fevers and chills. She also denies melena, hematochezia, hematemesis, nausea, vomiting, shortness of breath. She does have chest pain that was worked up at an outlying facility. She was given antihypertensives at home after her workup. Nothing makes her pain better or worse. The pain does radiate to the back. Past Medical History Cardiac Medical History: Reports: Hypertension Endocrine Medical History: Reports: Hypothyroidism - Had hyper parathyroid had XRT now has hypo- Past Surgical History Past Surgical History: Reports: Section - x3, Cholecystectomy, Hysterectomy Social History Smoking Status: Never Smoker Hx Prescription Drug Abuse: No - Advance Directive Resuscitation Status: Full Code Family History Family History: Reviewed & Not Pertinent Parental Family History Reviewed: Yes Children Family History Reviewed: Yes Sibling(s) Family History Reviewed.: Yes Medication/Allergy Home Medications: Amlodipine Besylate [Norvasc 10 mg Tablet] 10 mg PO DAILY 10/04/17 Atorvastatin Calcium [Lipitor 20 mg Tablet] 20 mg PO QHS 10/04/17 Lisinopril [Prinivil] 20 mg PO DAILY 10/04/17 Allergies/Adverse Reactions: tramadol Allergy (Verified 10/04/17 09:21) Review of Systems Constitutional: ABSENT: anorexia, chills, fatigue, fever(s), headache(s) Eyes: ABSENT: visual disturbances Ears: ABSENT: hearing changes Nose, Mouth, and Throat: ABSENT: sore throat Cardiovascular: PRESENT: chest pain Respiratory: ABSENT: cough, dyspnea Gastrointestinal: PRESENT: abdominal pain. ABSENT: diarrhea, heartburn, hematemesis, hematochezia, melena, nausea, vomiting Genitourinary: ABSENT: dysuria Musculoskeletal: PRESENT: back pain Integumentary: ABSENT: pruritus, rash Neurological: ABSENT: confusion, convulsions, dizziness, syncope Psychiatric: ABSENT: anxiety, depression Endocrine: ABSENT: cold intolerance, heat intolerance Hematologic/Lymphatic: ABSENT: easy bleeding, easy bruising Physical Exam Vital Signs: Temp Pulse Resp BP Pulse Ox 98.1 F 64 16 141/88 H 99 10/04/17 18:55 10/04/17 14:47 10/04/17 18:55 10/04/17 18:55 10/04/17 18:55 Intake & Output 10/03/17 10/04/17 10/05/17 06:59 06:59 06:59 Intake Total 233 Balance 233 General appearance: PRESENT: no acute distress Head exam: PRESENT: atraumatic, normocephalic Eye exam: PRESENT: EOMI, PERRLA. ABSENT: scleral icterus Mouth exam: PRESENT: neck supple Neck exam: ABSENT: lymphadenopathy, meningismus, tenderness, thyromegaly, tracheal deviation Respiratory exam: PRESENT: clear to auscultation key, unlabored. ABSENT: chest wall tenderness, retraction, rhonchi, tachypnea, wheezes Cardiovascular exam: PRESENT: RRR Pulses: PRESENT: normal radial pulses Vascular exam: PRESENT: normal capillary refill. ABSENT: pallor GI/Abdominal exam: PRESENT: soft. ABSENT: distended, firm, guarding, tenderness Extremities exam: ABSENT: clubbing Musculoskeletal exam: ABSENT: deformity Neurological exam: PRESENT: alert, awake, oriented to person, oriented to place , oriented to time, oriented to situation Psychiatric exam: ABSENT: agitated, anxious, depressed Skin exam: ABSENT: cyanosis, erythema, jaundice Results Impressions: Chest X-Ray 10/04/17 09:48 IMPRESSION: NO ACUTE RADIOGRAPHIC FINDING IN THE CHEST. Abdomen/Pelvis CT 10/04/17 13:14 IMPRESSION: Fairly extensive soft tissue stranding in the mesenteric fat in the left lower quadrant and left pelvis as well as the central mesenteric fat in the lower abdomen as noted above. Differential possibilities are as noted above. See above discussion. Clinical correlation is recommended. Other findings as noted above Status: Image reviewed by me Assessment & Plan - Diagnosis (1) Abdominal pain Qualifiers: Abdominal location: left lower quadrant Qualified Code(s): R10.32 - Left lower quadrant pain Is this a current diagnosis for this admission?: Yes (2) Inflammation of the retroperitoneum Is this a current diagnosis for this admission?: Yes - Plan Summary Plan Summary: This is a 52-year-old female with abdominal pain and retroperitoneal stranding, overlying the left psoas muscle. The abnormality does not involve the abdominal cavity. The stranding could represent hemorrhage or infection. Either way, surgical intervention is not warranted in this case. There is no open surgical intervention that would be helpful for retroperitoneal bleeding. If significant uncontrolled bleeding is suspected, transfer would be necessary to seek catheter directed therapies performed by interventional radiology or vascular surgery. If the stranding is infectious in nature, antibiotics and possible IR percutaneous drainage (for fluid collections larger than 3-4 cm) is the preferred method of treatment. I will see the patient again on an as- needed basis. I am available if any questions arise.
[2017-10-05] MEDS ORDERED: CEFTRIAXONE 1 GM/D5W RTU 1 GM/50 ML RTUPB IV SCH (10:00)
--- NOTE | 2017-10-05 13:46 | EKG REPORT ---
SEVERITY:- ABNORMAL ECG - SINUS RHYTHM VENTRICULAR PREMATURE COMPLEX NONSPECIFIC INTRAVENTRICULAR CONDUCTION DELAY : Confirmed by: Gillian Humphrey MD 05-Oct-2017 13:45:31
[2017-10-05] MEDS: ENOXAPARIN SODIUM INJ 40 MG/0.4 ML DISP.SYRIN SUBCUT SCH (14:41)
[2017-10-05] MEDS: HYDROMORPHONE HCL INJ/PF 2 MG/ML AMPULE IV PRN ×3 (14:48→22:30)
[2017-10-05] MEDS ORDERED: CEFTRIAXONE SODIUM 1,000 MG in NORMAL SALINE 50 ML IV SCH (18:00)
[2017-10-05] MEDS: PIPERACILLIN SODIUM/TAZOBACTAM 3.375 GM in NORMAL SALINE 100 ML IV SCH (18:27)
--- NOTE | 2017-10-05 22:32 | PDOC PROGRESS REPORT ---
Subjective Progress Note for:: 10/05/17 Subjective:: The patient is complaining that her pain is uncontrolled on current Morphine Q2H. She is also febrile, nauseated, and not tolerating her clear liquid diet welll. Reason For Visit: ACUTE RENAL FAILURE, NAUSEA AND VOMITING, Physical Exam Vital Signs: Temp Pulse Resp BP Pulse Ox 102.8 F H 83 20 119/63 91 L 10/05/17 19:37 10/05/17 19:37 10/05/17 19:37 10/05/17 19:37 10/05/17 19:37 Intake & Output 10/04/17 10/05/17 10/06/17 06:59 06:59 06:59 Intake Total 1333 2519 Balance 1333 2519 Weight 125.6 kg 125.6 kg General appearance: PRESENT: mild distress, morbidly obese, other - The patient appears acutely ill. Respiratory exam: PRESENT: other - No increased work of breathing.. ABSENT: rales, rhonchi, wheezes Cardiovascular exam: PRESENT: RRR, other - No lateral PMI. No thrills.. ABSENT : gallop, rubs, systolic murmur Pulses: PRESENT: +1 pedal pulses bilateral Vascular exam: PRESENT: normal capillary refill GI/Abdominal exam: PRESENT: hypoactive bowel sounds, tenderness - Positive for left lower quadrant tenderness. Also less intense generalized pain.. ABSENT: distended, mass, organolmegaly Neurological exam: PRESENT: alert, awake, oriented to person, oriented to place , oriented to time, oriented to situation, CN II-XII grossly intact. ABSENT: motor sensory deficit Psychiatric exam: PRESENT: appropriate affect, normal mood Skin exam: PRESENT: dry, intact, warm Results Laboratory Results: 10/05/17 04:37 10/05/17 04:37 10/05/17 10/05/17 04:37 04:37 WBC 11.6 H RBC 3.54 L Hgb 11.3 L Hct 32.1 L MCV 91 MCH 32.0 MCHC 35.4 RDW 14.3 H Plt Count 100 L Sodium 142.1 Potassium 3.4 L Chloride 109 H Carbon Dioxide 22 Anion Gap 11 BUN 23 H Creatinine 1.44 H Est GFR ( Amer) 47 L Est GFR (Non-Af Amer) 39 L Glucose 95 Calcium 7.8 L Total Bilirubin 1.1 AST 30 ALT 35 Alkaline Phosphatase 59 Total Protein 5.4 L Albumin 2.7 L 10/04/17 10/05/17 10/05/17 22:25 04:37 11:25 Troponin I < 0.012 0.014 < 0.012 Impressions: Renal Ultrasound 10/04/17 00:00 IMPRESSION: NORMAL RENAL AND BLADDER ULTRASOUND. Chest X-Ray 10/04/17 09:48 IMPRESSION: NO ACUTE RADIOGRAPHIC FINDING IN THE CHEST. Abdomen/Pelvis CT 10/04/17 13:14 IMPRESSION: Fairly extensive soft tissue stranding in the mesenteric fat in the left lower quadrant and left pelvis as well as the central mesenteric fat in the lower abdomen as noted above. Differential possibilities are as noted above. See above discussion. Clinical correlation is recommended. Other findings as noted above Assessment & Plan - Diagnosis (1) Diverticulitis Is this a current diagnosis for this admission?: Yes Plan: I have discussed the patient's radiological findings with the radiologist on for interventional today. He has re-evaluated the patient's CT scan of the abdomen. Although there is no clear etiology for the patient's fat stranding or pain, The radilogist feels that the most likely etiology is diverticulitis. He does not feel that retroperitoneal bleed is likely. He does not think that further imaging would be helpful in determining the etiology. He agrees with treatment of patient for diverticulitis. I greatly appreciate the assistance of both radiology and general surgery. I hav estopped rocephin and started zosyn. I will leave leonor patient on Flagyl. (2) Abdominal pain Qualifiers: Abdominal location: left lower quadrant Qualified Code(s): R10.32 - Left lower quadrant pain Is this a current diagnosis for this admission?: Yes Plan: Will change morphine to dilaudid and increase frequency. (3) Acute renal failure Qualifiers: Acute renal failure type: unspecified Qualified Code(s): N17.9 - Acute kidney failure, unspecified Is this a current diagnosis for this admission?: Yes Plan: reatinine improved from 1.97 to 1.44. Continue IV fluids. (4) Inflammation of the retroperitoneum Is this a current diagnosis for this admission?: Yes Plan: Retroperitoneal bleed is felt to be unlikely as hemoglobin is stable. It is felt that the retroperitoneal inflammation is simply secondary to the inflammation in the left lower quadrant of the abdomen. This is likely due to diverticulitis. (5) Nausea and vomiting Qualifiers: Vomiting type: unspecified Vomiting Intractability: intractable Qualified Code(s): R11.2 - Nausea with vomiting, unspecified Is this a current diagnosis for this admission?: Yes Plan: Pt is tolerating her clear liquids poorly. - Time Time Spent with patient: 35 or more minutes Medications reviewed and adjusted accordingly: Yes
[2017-10-05] MEDS ORDERED: ONDANSETRON HCL INJ/PF 4 MG/2 ML SDV IV PRN (22:33)
[2017-10-06] MEDS: PIPERACILLIN SODIUM/TAZOBACTAM 3.375 GM in NORMAL SALINE 100 ML IV SCH ×4 (00:49→18:10)
[2017-10-06] MEDS: HYDROMORPHONE HCL INJ/PF 2 MG/ML AMPULE IV PRN ×8 (04:06→23:00)
[2017-10-06] MEDS: ACETAMINOPHEN 325 MG TABLET PO PRN (04:06)
[2017-10-06] MEDS: NORMAL SALINE 1000 ML 1,000 ML IV PRN ×2 (04:10→14:38)
[2017-10-06] MEDS ORDERED: MAG HYDROX/AL HYDROX/SIMETH SUSP 30 ML UDCUP PO PRN (04:24)
[2017-10-06] MEDS: METRONIDAZOLE 500 MG/NS RTU 500 MG/100 ML RTUPB IV SCH ×3 (05:10→22:51)
[2017-10-06 08:30] LABS: ABSOLUTE BASOPHILS # (AUTO) 0.1 10^3/uL (0.0-0.2); ABSOLUTE EOSINOPHILS # (AUTO) 0.1 10^3/uL (0.0-0.6); ABSOLUTE MONOCYTES (AUTO) 0.6 10^3/uL (0.1-1.4); ABSOLUTE NEUT (AUTO) 8.7 10^3/uL (1.7-8.2); BASOPHILS % (AUTO) 0.6 % (0-2); EOSINOPHILS % (AUTO) 0.5 % (0-6); HEMATOCRIT 30.8 % (36.0-47.0); HEMOGLOBIN 10.8 g/dL (12.0-15.5); LYMPHOCYTES % (AUTO) 9.7 % (13-45); MEAN CORPUSCULAR HEMOGLOBIN 32.2 pg (27.0-33.4); MEAN CORPUSCULAR HGB CONC 35.1 g/dL (32.0-36.0); MEAN CORPUSCULAR VOLUME 92 fl (80-97); MONOCYTES % (AUTO) 5.9 % (3-13); PLATELET COUNT 110 10^3/uL (150-450); RED BLOOD COUNT 3.36 10^6/uL (3.72-5.28); RED CELL DISTRIBUTION WIDTH 14.1 % (11.5-14.0); SEGMENTED NEUTROPHILS % (AUTO) 83.3 % (42-78); TOTAL CELLS COUNTED % (AUTO) 100 %; WHITE BLOOD COUNT 10.5 10^3/uL (4.0-10.5)
[2017-10-06 08:45] LABS: ANION GAP 8 (5-19); BLOOD UREA NITROGEN 15 mg/dL (7-20); CALCIUM 7.5 mg/dL (8.4-10.2); CARBON DIOXIDE 25 mmol/L (22-30); CHLORIDE 108 mmol/L (98-107); GLUCOSE 98 mg/dL (75-110); POTASSIUM 3.2 mmol/L (3.6-5.0); SODIUM 141.1 mmol/L (137-145)
[2017-10-06] MEDS ORDERED: POTASSI CL 20 MEQ/50 ML RIDER 20 MEQ/50 ML RTUPB IV SCH (11:00)
[2017-10-06] MEDS: ENOXAPARIN SODIUM INJ 40 MG/0.4 ML DISP.SYRIN SUBCUT SCH (11:16)
[2017-10-06] MEDS ORDERED: CAFFEINE CITRATED INJ/PF 60 MG/3 ML SDV ONE (12:45)
[2017-10-06] MEDS ORDERED: REGADENOSON INJ 0.4 MG/5 ML DISP.SYRIN IV ONE (12:45)
[2017-10-06] MEDS ORDERED: DOCUSATE SODIUM 100 MG CAPSULE PO ONE (14:00)
[2017-10-06] MEDS ORDERED: BISACODYL 10 MG SUPP.RECT PR ONE (14:00)
[2017-10-06] MEDS: POTASSIUM CHLORIDE 20 MEQ/50 ML RTU IV SCH ×3 (14:30→20:44)
--- NOTE | 2017-10-06 17:23 | PDOC PROGRESS REPORT ---
Subjective Progress Note for:: 10/06/17 Subjective:: The patient is quite discouraged today. Although she had no appetite yesterday, today she is upset that she is only getting clears. She is upset that she had fevers last night and that she still is having abdominal pain. She is also upset that she had a stress test this morning. Overall the patient actually looks better. She has not had a fever since 0300 this am. Reason For Visit: ACUTE RENAL FAILURE, NAUSEA AND VOMITING, Physical Exam Vital Signs: Temp Pulse Resp BP Pulse Ox 97.4 F 63 16 114/72 91 L 10/06/17 12:00 10/06/17 12:00 10/06/17 12:00 10/06/17 12:00 10/06/17 12:00 Intake & Output 10/05/17 10/06/17 10/07/17 06:59 06:59 06:59 Intake Total 1333 3919 1650 Balance 1333 3919 1650 Weight 125.6 kg 129.5 kg General appearance: PRESENT: mild distress, morbidly obese Neck exam: ABSENT: JVD, lymphadenopathy, tenderness, thyromegaly Respiratory exam: PRESENT: other - No increased work of breathing. She is currently saturating 95% on 1L.. ABSENT: rales, rhonchi, wheezes Cardiovascular exam: PRESENT: RRR. ABSENT: gallop, rubs, systolic murmur Pulses: PRESENT: normal dorsalis pedis pul GI/Abdominal exam: PRESENT: normal bowel sounds, tenderness - Left lower quadrant.. ABSENT: distended, hernia, mass Rectal exam: PRESENT: deferred Extremities exam: ABSENT: clubbing, pedal edema, tenderness Musculoskeletal exam: ABSENT: deformity, dislocation, normal inspection Neurological exam: PRESENT: alert, awake, oriented to person, oriented to place , oriented to time, oriented to situation, CN II-XII grossly intact. ABSENT: motor sensory deficit Psychiatric exam: PRESENT: anxious, depressed Skin exam: PRESENT: dry, intact, warm Results Laboratory Results: 10/06/17 08:20 10/06/17 08:20 10/06/17 10/06/17 08:20 08:20 WBC 10.5 RBC 3.36 L Hgb 10.8 L Hct 30.8 L MCV 92 MCH 32.2 MCHC 35.1 RDW 14.1 H Plt Count 110 L Seg Neutrophils % 83.3 H Lymphocytes % 9.7 L Monocytes % 5.9 Eosinophils % 0.5 Basophils % 0.6 Absolute Neutrophils 8.7 H Absolute Lymphocytes 1.0 Absolute Monocytes 0.6 Absolute Eosinophils 0.1 Absolute Basophils 0.1 Sodium 141.1 Potassium 3.2 L Chloride 108 H Carbon Dioxide 25 Anion Gap 8 BUN 15 Creatinine 1.25 Est GFR ( Amer) 55 L Est GFR (Non-Af Amer) 45 L Glucose 98 Calcium 7.5 L 10/04/17 10/05/17 10/05/17 22:25 04:37 11:25 Troponin I < 0.012 0.014 < 0.012 Impressions: Renal Ultrasound 10/04/17 00:00 IMPRESSION: NORMAL RENAL AND BLADDER ULTRASOUND. Chest X-Ray 10/04/17 09:48 IMPRESSION: NO ACUTE RADIOGRAPHIC FINDING IN THE CHEST. Abdomen/Pelvis CT 10/04/17 13:14 IMPRESSION: Fairly extensive soft tissue stranding in the mesenteric fat in the left lower quadrant and left pelvis as well as the central mesenteric fat in the lower abdomen as noted above. Differential possibilities are as noted above. See above discussion. Clinical correlation is recommended. Other findings as noted above Assessment & Plan - Diagnosis (1) Diverticulitis Is this a current diagnosis for this admission?: Yes Plan: I have discussed the patient's radiological findings with the radiologist on for interventional today. He has re-evaluated the patient's CT scan of the abdomen. Although there is no clear etiology for the patient's fat stranding or pain, The radiologist feels that the most likely etiology is diverticulitis. He does not feel that retroperitoneal bleed is likely. He does not think that further imaging would be helpful in determining the etiology. He agrees with treatment of patient for diverticulitis. I greatly appreciate the assistance of both radiology and general surgery. I have stopped rocephin and started zosyn. I will leave the patient on Flagyl. The patient continued to have fevers throughout the night last night, but she has had no further fevers today. I will advance the patient's diet to full liquid as she dislikes the clear liquid diet. (2) Abdominal pain Qualifiers: Abdominal location: left lower quadrant Qualified Code(s): R10.32 - Left lower quadrant pain Is this a current diagnosis for this admission?: Yes Plan: The patient states that her pain is not improved. (3) Acute renal failure Qualifiers: Acute renal failure type: unspecified Qualified Code(s): N17.9 - Acute kidney failure, unspecified Is this a current diagnosis for this admission?: Yes Plan: Creatinine improved from 1.97 to 1.25. Continue IV fluids. Avoid nephrotoxic agents. (4) Inflammation of the retroperitoneum Is this a current diagnosis for this admission?: Yes Plan: Retroperitoneal bleed is felt to be unlikely as hemoglobin is stable. It is felt that the retroperitoneal inflammation is simply secondary to the inflammation in the left lower quadrant of the abdomen. This is likely due to diverticulitis. Will continue to monitor hemoglobin, although retroperitoneal bleed is considered unlikely at this point. (5) Nausea and vomiting Qualifiers: Vomiting type: unspecified Vomiting Intractability: intractable Qualified Code(s): R11.2 - Nausea with vomiting, unspecified Is this a current diagnosis for this admission?: Yes Plan: Pt's nausea and vomiting must be improved as she is complaining about the taste of her clear liquids this morning. I will advance her diet to a full liquid diet. - Time Time Spent with patient: 35 or more minutes Medications reviewed and adjusted accordingly: Yes Anticipated discharge: Home
--- NOTE | 2017-10-06 18:06 | DRAGON STRESS TEST REPORT ---
INTRAVENOUS LEXISCAN CARDIOLITE STRESS TEST USING SINGLE PHOTON EMMISION COMPUTERIZED TOMOGRAPHIC. DATE OF PROCEDURE: October 06, 2017, INDICATION : Chest pain CARDIAC RISK FACTORS: Hypertension, dyslipidemia RESTING EKG: Sinus rhythm without any baseline ST-T wave changes. STRESS EKG: No significant ST segment changes noted with LexiScan bolus REASON FOR TERMINATION: Protocol. PROCEDURE REPORT: Baseline heart rate 59 beats per minute with blood pressure of 95/72. Patient had no significant complaints. Patient was bolused with Lexiscan 0.4 mg intravenously followed by saline bolus. Heart rate at 2 minutes post bolus 67 with a blood pressure of 91/70. 3 minutes post bolus heart rate 65 with blood pressure of 94/69. No significant EKG changes were noted. Patient had no significant complaints during the procedure or postprocedure. CONCLUSIONS: Normal EKG and hemodynamic response to IV LexiScan. NUCLEAR DATA: At rest the patient was given 15.50 millicuries of technetium 99 sestamibi injected intravenously. As per protocol rest gated SPECT images were obtained. On day of stress test, the patient was given intravenous LexiScan at a dose of 0.4 mg in 5 mL intravenously, followed by flush with normal saline. Subsequently the stress dose of 47.2 millicuries of technetium 99 sestamibi was injected intravenously. As per protocol stress gated images were obtained. NUCLEAR INTERPRETATION: Both raw and processed data were used for interpretation. Visual, qualitative, computer-generated quantitative data was used. There was good myocardial uptake of technetium compound. Motion artifact and soft tissue attenuations were noted. Increased visceral uptake was noted. No definitive areas of transient perfusion defect noted, except for borderline decreased uptake in the inferior wall and stress imaging, SDS of 1 therefore not significant. No definitive areas of fixed perfusion defect or scars noted. EKG gated imaging showed LV EF at 46 %, rest and stress gated EF similar visually. T. I D. ratio was 1.09. Lung heart ratio noted to be within normal limits 0.23. No significant extracardiac and abnormal radiotracer activities were noted. RV free wall uptake was noted to be WNL. IMPRESSION: Also refer to comments under nuclear interpretation. Also test results needs to be interpreted in the context of pretest probability. 1. No definitive areas of transient perfusion defect noted. 2. There is no definitive scintigraphic evidence of myocardial infarction/scar. 3. EKG gated imaging shows left ventricular ejection fraction of approx. 46 %. 4. Clinical correlation requested as occasionally single vessel disease or balanced ischemia could be missed. In approximately 10% of the cases Lexiscan may not cause adequate vasodilatory stress. RECOMMENDATIONS: Aggressive risk factor modification and medical management. Further evaluation may be needed if continued symptoms or other high risk indicators are noted on clinical evaluation. Close cardiology follow-up is also recommended. Clinical correlation with echocardiogram derived ejection fraction. Inability to exercise by itself can lead to increased cardiovascular event risks. Consider cardiology consultation and or follow-up if clinically indicated. I am available for cardiology evaluation and consultation if requested by the physician assistant primary care, unless patient already has a hall coordinator. Dr. Kassy Cook. MRCP Board certified in cardiology and sleep medicine. Board certified in nuclear cardiology, adult echocardiography. MARY ANN
--- NOTE | 2017-10-06 18:43 | RADIOLOGY REPORT (SQ) ---
EXAM DESCRIPTION: CHEST SINGLE VIEW COMPLETED DATE/TIME: 10/06/2017 6:26 pm REASON FOR STUDY: Hypoxia COMPARISON: 10/04/2017 EXAM PARAMETERS: NUMBER OF VIEWS: One view. TECHNIQUE: Single frontal radiographic view of the chest acquired. RADIATION DOSE: NA LIMITATIONS: None. FINDINGS: LUNGS AND PLEURA: No opacities, masses or pneumothorax. No pleural effusion. MEDIASTINUM AND HILAR STRUCTURES: No masses. Contour normal. HEART AND VASCULAR STRUCTURES: Heart size is borderline. There is no pulmonary edema. BONES: No acute findings. HARDWARE: None in the chest. OTHER: No other significant finding. IMPRESSION: Borderline cardiomegaly without pulmonary edema. TECHNICAL DOCUMENTATION: JOB ID: [id number] [employer]- All Rights Reserved Reading location - IP/workstation name: [email or web address]
[2017-10-06] MEDS: IPRATROPIUM/ALBUTEROL 0.5-2.5 MG/3 ML AMPUL NEB SCH (19:15)
[2017-10-07] MEDS: PIPERACILLIN SODIUM/TAZOBACTAM 3.375 GM in NORMAL SALINE 100 ML IV SCH ×4 (00:23→17:38)
[2017-10-07] MEDS: IPRATROPIUM/ALBUTEROL 0.5-2.5 MG/3 ML AMPUL NEB SCH ×4 (02:34→20:22)
[2017-10-07] MEDS: NORMAL SALINE 1000 ML 1,000 ML IV PRN (06:08)
[2017-10-07] MEDS: METRONIDAZOLE 500 MG/NS RTU 500 MG/100 ML RTUPB IV SCH ×3 (06:08→21:31)
[2017-10-07] MEDS: ENOXAPARIN SODIUM INJ 40 MG/0.4 ML DISP.SYRIN SUBCUT SCH (09:03)
[2017-10-07 13:01] LABS: ABSOLUTE EOSINOPHILS # (AUTO) 0.1 10^3/uL (0.0-0.6); ABSOLUTE LYMPHOCYTES (AUTO) 1.1 10^3/uL (0.5-4.7); ABSOLUTE MONOCYTES (AUTO) 0.7 10^3/uL (0.1-1.4); ABSOLUTE NEUT (AUTO) 7.8 10^3/uL (1.7-8.2); BASOPHILS % (AUTO) 0.5 % (0-2); EOSINOPHILS % (AUTO) 0.6 % (0-6); HEMATOCRIT 30.8 % (36.0-47.0); HEMOGLOBIN 10.9 g/dL (12.0-15.5); LYMPHOCYTES % (AUTO) 11.4 % (13-45); MEAN CORPUSCULAR HEMOGLOBIN 32.2 pg (27.0-33.4); MEAN CORPUSCULAR HGB CONC 35.3 g/dL (32.0-36.0); MEAN CORPUSCULAR VOLUME 91 fl (80-97); MONOCYTES % (AUTO) 7.6 % (3-13); PLATELET COUNT 138 10^3/uL (150-450); RED BLOOD COUNT 3.38 10^6/uL (3.72-5.28); RED CELL DISTRIBUTION WIDTH 14.4 % (11.5-14.0); SEGMENTED NEUTROPHILS % (AUTO) 79.9 % (42-78); TOTAL CELLS COUNTED % (AUTO) 100 %; WHITE BLOOD COUNT 9.7 10^3/uL (4.0-10.5)
[2017-10-07 13:27] LABS: ALANINE AMINOTRANSFERASE 34 U/L (9-52); ALBUMIN 2.7 g/dL (3.5-5.0); ALKALINE PHOSPHATASE 67 U/L (38-126); ANION GAP 10 (5-19); ASPARTATE AMINO TRANSFERASE 31 U/L (14-36); BILIRUBIN,DIRECT 0.4 mg/dL (0.0-0.4); BILIRUBIN,TOTAL 0.5 mg/dL (0.2-1.3); BLOOD UREA NITROGEN 11 mg/dL (7-20); CALCIUM 8.1 mg/dL (8.4-10.2); CARBON DIOXIDE 25 mmol/L (22-30); CHLORIDE 109 mmol/L (98-107); GLUCOSE 117 mg/dL (75-110); POTASSIUM 3.2 mmol/L (3.6-5.0); SODIUM 143.8 mmol/L (137-145); TOTAL PROTEIN 5.3 g/dL (6.3-8.2)
[2017-10-07] MEDS: HYDROMORPHONE HCL INJ/PF 2 MG/ML AMPULE IV PRN ×2 (14:25→21:35)
--- NOTE | 2017-10-07 16:58 | PDOC PROGRESS REPORT ---
Subjective Progress Note for:: 10/07/17 Subjective:: The patient complaining that she still has abdominal pain. She rates it as a "2 ". She also is complaining of swelling due to IV fluids. Reason For Visit: ACUTE RENAL FAILURE, NAUSEA AND VOMITING, Physical Exam Vital Signs: Temp Pulse Resp BP Pulse Ox 98.5 F 75 12 126/74 H 96 10/07/17 15:42 10/07/17 15:42 10/07/17 15:42 10/07/17 15:42 10/07/17 15:42 Intake & Output 10/06/17 10/07/17 10/08/17 06:59 06:59 06:59 Intake Total 3919 3898 1536 Balance 3919 3898 1536 Weight 129.5 kg 132 kg General appearance: PRESENT: mild distress, morbidly obese Respiratory exam: PRESENT: other - No increased work of breathing. No wheezes, rales, or rhonchi. No tactile fremitus. Cardiovascular exam: PRESENT: RRR, other - No lateral PMI. No thrills.. ABSENT : gallop, rubs, systolic murmur GI/Abdominal exam: PRESENT: normal bowel sounds, soft. ABSENT: hernia, mass, organolmegaly, tenderness Rectal exam: PRESENT: deferred Extremities exam: ABSENT: clubbing, joint swelling, tenderness Musculoskeletal exam: PRESENT: normal inspection. ABSENT: dislocation, tenderness Neurological exam: PRESENT: alert, awake, oriented to person, oriented to place , oriented to time, oriented to situation, CN II-XII grossly intact. ABSENT: motor sensory deficit Psychiatric exam: PRESENT: anxious, depressed Skin exam: PRESENT: dry, intact, warm Results Laboratory Results: 10/07/17 12:32 10/07/17 12:32 10/07/17 10/07/17 12:32 12:32 WBC 9.7 RBC 3.38 L Hgb 10.9 L Hct 30.8 L MCV 91 MCH 32.2 MCHC 35.3 RDW 14.4 H Plt Count 138 L Seg Neutrophils % 79.9 H Lymphocytes % 11.4 L Monocytes % 7.6 Eosinophils % 0.6 Basophils % 0.5 Absolute Neutrophils 7.8 Absolute Lymphocytes 1.1 Absolute Monocytes 0.7 Absolute Eosinophils 0.1 Absolute Basophils 0.0 Sodium 143.8 Potassium 3.2 L Chloride 109 H Carbon Dioxide 25 Anion Gap 10 BUN 11 Creatinine 0.99 Est GFR ( Amer) > 60 Est GFR (Non-Af Amer) 59 L Glucose 117 H Calcium 8.1 L Total Bilirubin 0.5 AST 31 ALT 34 Alkaline Phosphatase 67 Total Protein 5.3 L Albumin 2.7 L 10/04/17 10/05/17 10/05/17 22:25 04:37 11:25 Troponin I < 0.012 0.014 < 0.012 Impressions: Renal Ultrasound 10/04/17 00:00 IMPRESSION: NORMAL RENAL AND BLADDER ULTRASOUND. Abdomen/Pelvis CT 10/04/17 13:14 IMPRESSION: Fairly extensive soft tissue stranding in the mesenteric fat in the left lower quadrant and left pelvis as well as the central mesenteric fat in the lower abdomen as noted above. Differential possibilities are as noted above. See above discussion. Clinical correlation is recommended. Other findings as noted above Chest X-Ray 10/06/17 00:00 IMPRESSION: Borderline cardiomegaly without pulmonary edema. Assessment & Plan - Diagnosis (1) Diverticulitis Is this a current diagnosis for this admission?: Yes Plan: Resolving. (2) Abdominal pain Qualifiers: Abdominal location: left lower quadrant Qualified Code(s): R10.32 - Left lower quadrant pain Is this a current diagnosis for this admission?: Yes Plan: Resolving (3) Acute renal failure Qualifiers: Acute renal failure type: unspecified Qualified Code(s): N17.9 - Acute kidney failure, unspecified Is this a current diagnosis for this admission?: Yes Plan: Resolved. Creatinine down from 1.92 to 0.99, IV fluids stopped. Avoid nephrotoxic agents. (4) Inflammation of the retroperitoneum Is this a current diagnosis for this admission?: Yes (5) Nausea and vomiting Qualifiers: Vomiting type: unspecified Vomiting Intractability: intractable Qualified Code(s): R11.2 - Nausea with vomiting, unspecified Is this a current diagnosis for this admission?: Yes Plan: Resolving. (6) Respiratory failure with hypoxia Qualifiers: Chronicity: acute Qualified Code(s): J96.01 - Acute respiratory failure with hypoxia Is this a current diagnosis for this admission?: Yes Plan: Presented on 10/05 and 10/06. Due to atelectasis secondary to the patient's spinting due to pain and her inactivity. It has resolved with ambulation and incentive spirometry. (7) Chest pain Qualifiers: Chest pain type: unspecified Qualified Code(s): R07.9 - Chest pain, unspecified Is this a current diagnosis for this admission?: Yes Plan: The patient underwent a nuclear stress test yesterday that was negative for ischemia. - Time Time Spent with patient: 35 or more minutes Medications reviewed and adjusted accordingly: Yes Anticipated discharge: Home Within: within 48 hours
[2017-10-07] MEDS: POTASSIUM CHLORIDE 10 MEQ CAPSULE.ER PO SCH (21:30)
[2017-10-08] MEDS: IPRATROPIUM/ALBUTEROL 0.5-2.5 MG/3 ML AMPUL NEB SCH ×3 (01:53→14:36)
[2017-10-08] MEDS ORDERED: PIPERACILLIN/TAZOBACTAM 3.375 GM VIAL IV ONE (02:13)
[2017-10-08] MEDS ORDERED: PIPERACILLIN SODIUM/TAZOBACTAM 3.375 GM in NORMAL SALINE 100 ML IV SCH (06:00)
[2017-10-08] MEDS: POTASSIUM CHLORIDE 10 MEQ CAPSULE.ER PO SCH ×3 (06:24→17:53)
[2017-10-08] MEDS: METRONIDAZOLE 500 MG/NS RTU 500 MG/100 ML RTUPB IV SCH (06:26)
[2017-10-08 07:00] LABS: HEMATOCRIT 29.5 % (36.0-47.0); HEMOGLOBIN 10.5 g/dL (12.0-15.5); MEAN CORPUSCULAR HEMOGLOBIN 32.2 pg (27.0-33.4); MEAN CORPUSCULAR HGB CONC 35.5 g/dL (32.0-36.0); MEAN CORPUSCULAR VOLUME 91 fl (80-97); PLATELET COUNT 164 10^3/uL (150-450); RED BLOOD COUNT 3.25 10^6/uL (3.72-5.28); RED CELL DISTRIBUTION WIDTH 14.1 % (11.5-14.0); WHITE BLOOD COUNT 7.7 10^3/uL (4.0-10.5)
[2017-10-08 07:05] LABS: ANION GAP 11 (5-19); BLOOD UREA NITROGEN 8 mg/dL (7-20); CALCIUM 8.2 mg/dL (8.4-10.2); CARBON DIOXIDE 24 mmol/L (22-30); CHLORIDE 109 mmol/L (98-107); GLUCOSE 105 mg/dL (75-110); POTASSIUM 3.2 mmol/L (3.6-5.0); SODIUM 143.6 mmol/L (137-145)
[2017-10-08] MEDS: HYDROMORPHONE HCL INJ/PF 2 MG/ML AMPULE IV PRN ×6 (07:50→17:53)
[2017-10-08 08:01] LABS: ABSOLUTE LYMPHOCYTES# (MANUAL) 1.7 10^3/uL (0.5-4.7); ABSOLUTE MONOCYTES # (MANUAL) 0.5 10^3/uL (0.1-1.4); ABSOLUTE NEUTROPHILS# (MANUAL) 5.3 10^3/uL (1.7-8.2); BASOPHILS % (MANUAL) 0 % (0-2); EOSINOPHILS % (MANUAL) 2 % (0-6); LYMPHOCYTES % (MANUAL) 21 % (13-45); MONOCYTES % (MANUAL) 7 % (3-13); PLATELET COMMENT ADEQUATE; PLATELET LARGE PRESENT; SEGMENTED NEUTROPHILS % (MAN) 69 % (42-78); TOTAL CELLS COUNTED 100
[2017-10-08 08:02] LABS: POLYCHROMASIA SLIGHT; TOXIC GRANULATION 1+
[2017-10-08] MEDS ORDERED: FUROSEMIDE INJ/PF 20 MG/2 ML SDV IV ONE (10:42)
[2017-10-08] MEDS: ENOXAPARIN SODIUM INJ 40 MG/0.4 ML DISP.SYRIN SUBCUT SCH (11:31)
[2017-10-08] MEDS: PIPERACILLIN SODIUM/TAZOBACTAM 3.375 GM in NORMAL SALINE 100 ML IV SCH (12:34)
[2017-10-08] MEDS ORDERED: AMOXICILLIN TR/POT CLAVULANATE 500-125 MG TAB PO SCH (14:00)
--- NOTE | 2017-10-08 16:49 | PDOC DISCHARGE SUMMARY ---
General - Admit/Disc Date/PCP Admission Date/Primary Care Provider: 10/04/17 16:17 Discharge Date: 10/08/17 - Discharge Diagnosis (1) Diverticulitis Is this a current diagnosis for this admission?: Yes (2) Abdominal pain Is this a current diagnosis for this admission?: Yes (3) Acute renal failure Is this a current diagnosis for this admission?: Yes (4) Inflammation of the retroperitoneum Is this a current diagnosis for this admission?: Yes (5) Nausea and vomiting Is this a current diagnosis for this admission?: Yes (6) Respiratory failure with hypoxia Is this a current diagnosis for this admission?: Yes (7) Chest pain Is this a current diagnosis for this admission?: Yes - Additional Information Resuscitation Status: Full Code Discharge Diet: Cardiac Discharge Activity: Activity As Tolerated - No driving today. Prescriptions: Amox Tr/Potassium Clavulanate [Augmentin "500" Tablet] 1 tab PO Q8 #15 tablet Home Medications: Amlodipine Besylate [Norvasc 10 mg Tablet] 10 mg PO DAILY 10/04/17 Atorvastatin Calcium [Lipitor 20 mg Tablet] 20 mg PO QHS 10/04/17 Amox Tr/Potassium Clavulanate [Augmentin "500" Tablet] 1 tab PO Q8 #15 tablet 10/08/17 History of Present Illness History of Present Illness: ANMOL STEINBERG is a 52 year old female who apparently was hospitalized at a different hospital for bradycardia and hypertension and she was discharged on hypertension medications not too long ago. She presents to the emergency room was constellation of symptoms including weakness fatigue poor oral intake abdominal discomfort nausea and vomiting and chest pain that had been over the past 2-3 days. EKG and troponin are unremarkable so far. Chest x-ray is unremarkable. CT scan of the abdomen was questionable retroperitoneal bleed and the surgeon functional director was notified and he is okay with admission and will be consulted. She also has elevated creatinine more than her baseline. And her urinalysis is abnormal but she denied any urinary symptoms. Hospital Course Hospital Course: The patient was admitted to a medical bed. CT of the abdomen described some vague fat stranding in the left lower quadrant and some inflammatory changes in the retroperitoneal space adjacent to that area. The patient was seen by surgery due to the concern for a retroperitoneal bleed. Surgery felt that this was unlikely. The patient's hemoglobin was stable. I discussed the patient's radiographic findings with Dr. Salcedo. She felt that although there was no clear evidence of diverticulitis, she felt that this was the mostl likely cause of the patient's mesenteric stranding in this area and her symptoms. The patient was placed on Zosyn and Flagyl. The patient was slow to respond, and she continued to have fevers for one day following the change in antibiotics. Her diet was advanced to a full liquid diet from clears. She seemed to tolerate this well. Her fevers resolved. Over the past day her pain has also resolved. She will be discharged to home in fair condition on PO Augmentin. Upon presentation the patient also complained of chest pain. Dr. Cook was consulted and the patient underwent a nuclear medicine stress test. It was negative for ischemia. Physical Exam Vital Signs: Temp Pulse Resp BP Pulse Ox 99.1 F 77 16 127/81 H 95 10/08/17 11:52 10/08/17 14:36 10/08/17 14:36 10/08/17 11:52 10/08/17 11:52 Intake & Output 10/07/17 10/08/17 10/09/17 06:59 06:59 06:59 Intake Total 3898 2636 536 Balance 3898 2636 536 Weight 132 kg 132.7 kg General appearance: PRESENT: no acute distress, cooperative, obese Respiratory exam: PRESENT: other - No increased work of breathing. No wheezes, rales, or rhonchi. No tactile fremitus.. ABSENT: rales, rhonchi, wheezes Cardiovascular exam: PRESENT: RRR. ABSENT: gallop, rubs, systolic murmur Pulses: PRESENT: normal dorsalis pedis pul GI/Abdominal exam: PRESENT: normal bowel sounds, soft. ABSENT: hernia, mass, organolmegaly, tenderness Rectal exam: PRESENT: deferred Extremities exam: PRESENT: full ROM, +1 edema. ABSENT: clubbing Musculoskeletal exam: PRESENT: ambulatory. ABSENT: deformity, dislocation Neurological exam: PRESENT: alert, awake, oriented to person, oriented to place , oriented to time, CN II-XII grossly intact, motor sensory deficit Psychiatric exam: PRESENT: appropriate affect, normal mood Skin exam: PRESENT: dry, intact, warm Results Laboratory Results: 10/08/17 06:16 10/08/17 06:16 10/08/17 10/08/17 06:16 06:16 WBC 7.7 RBC 3.25 L Hgb 10.5 L Hct 29.5 L MCV 91 MCH 32.2 MCHC 35.5 RDW 14.1 H Plt Count 164 Seg Neutrophils % Not Reportable Lymphocytes % Not Reportable Monocytes % Not Reportable Eosinophils % Not Reportable Basophils % Not Reportable Absolute Neutrophils Not Reportable Absolute Lymphocytes Not Reportable Absolute Monocytes Not Reportable Absolute Eosinophils Not Reportable Absolute Basophils Not Reportable Sodium 143.6 Potassium 3.2 L Chloride 109 H Carbon Dioxide 24 Anion Gap 11 BUN 8 Creatinine 0.89 Est GFR ( Amer) > 60 Est GFR (Non-Af Amer) > 60 Glucose 105 Calcium 8.2 L 10/04/17 10/05/17 10/05/17 22:25 04:37 11:25 Troponin I < 0.012 0.014 < 0.012 Impressions: Renal Ultrasound 10/04/17 00:00 IMPRESSION: NORMAL RENAL AND BLADDER ULTRASOUND. Abdomen/Pelvis CT 10/04/17 13:14 IMPRESSION: Fairly extensive soft tissue stranding in the mesenteric fat in the left lower quadrant and left pelvis as well as the central mesenteric fat in the lower abdomen as noted above. Differential possibilities are as noted above. See above discussion. Clinical correlation is recommended. Other findings as noted above Chest X-Ray 10/06/17 00:00 IMPRESSION: Borderline cardiomegaly without pulmonary edema. Qualifiers - * PATIENT BEING DISCHARGED WITH ANY OF THE FOLLOWING DIAGNOSIS: No
[2017-10-08 18:29] VITALS: BP 124/78
== END 2017-10-08 19:04 | disposition home or self-care (01) | DRG 392 ==
LOC: ER 09:20 → EH 16:17 → 3S 19:16
PROVIDERS: ADMIT Family Medicine; ATTEND Family Medicine
DX: K57.92 Diverticulitis of intestine, part unspecified, without perforation or abscess without bleeding (principal); N17.9 Acute kidney failure, unspecified; N39.0 Urinary tract infection, site not specified; I10 Essential (primary) hypertension; E89.0 Postprocedural hypothyroidism; F41.8 Other specified anxiety disorders
CPT/HCPCS: 36415; 71045; 74176; 76775; 78452; 80048; 80053; 81001; 82550; 82553; 83690; 84484; 85025; 85027; 87040; 93005; 93010; 93017; 94640; 94799; 96360; 96361; 99285; A9500; J0696; J0706; J1170; J1940; J2270; J2405; J2543; J2785; J3480; J7030; J7620; Q9969; S0119

== ENCOUNTER 2018-06-17 14:26 | Emergency (ER) | payer SELFPAY ==
[2018-06-17] MEDS ORDERED: MECLIZINE HCL 25 MG TABLET PO ONE (14:57)
[2018-06-17] MEDS ORDERED: ONDANSETRON HCL INJ/PF 4 MG/2 ML SDV IV ONE (14:57)
[2018-06-17] MEDS ORDERED: DIAZEPAM 5 MG TABLET PO ONE (14:58)
[2018-06-17] MEDS ORDERED: DIPHENHYDRAMINE HCL 50 MG/ML VIAL IV ONE (14:58)
[2018-06-17] MEDS ORDERED: RINGERS SOLUTION,LACTATED 1,000 ML IV ONE (14:58)
[2018-06-17] MEDS ORDERED: CLONIDINE HCL 0.1 MG TABLET PO ONE (14:58)
--- NOTE | 2018-06-17 15:05 | ER Document Report ---
ED General - General Chief Complaint: Dizziness Stated Complaint: DIZZINESS Time Seen by Provider: 06/17/18 14:47 Primary Care Provider: [facility] [Outside] - Follow up in 3-5 days Mode of Arrival: Ambulatory Information source: Patient, [facility] Records Notes: 53-year-old female with hypertension, hypothyroidism, migraine headache presents with complaint of head pressure, dizziness, weakness, nausea, vomiting. Patient states that she has had pressure in her head for 1 month. She states that she developed her typical migraine headache approximately 3 days ago. She describes her dizziness as the room spinning when she stands up or moves her head quickly. She states it lasts approximately 1 minute and self resolves. Patient also describes ear pressure, rhinorrhea. Patient also reports decrease in appetite. TRAVEL OUTSIDE OF THE [place] IN LAST 30 DAYS: No - HPI Onset: Other Onset/Duration: Gradual, Intermittent Quality of pain: Pressure Severity: Mild Associated symptoms: Body/muscle aches, Earache, Headache, Nausea, Vomiting, Rhinnorhea, Weakness. denies: Chest pain, Diarrhea, Fever, Leg swelling, Shortness of breath Exacerbated by: Movement Relieved by: Remaining still Similar symptoms previously: No Recently seen / treated by doctor: No - Related Data Allergies/Adverse Reactions: tramadol Allergy (Verified 06/17/18 14:26) Past Medical History - General Information source: Patient, [facility] Records - Social History Smoking Status: Never Smoker Frequency of alcohol use: None Drug Abuse: None Lives with: Family Family History: Reviewed & Not Pertinent Patient has suicidal ideation: No Patient has homicidal ideation: No - Past Medical History Cardiac Medical History: Reports: Hx Hypertension Neurological Medical History: Reports: Hx Migraine Endocrine Medical History: Reports: Hx Hypothyroidism - Had hyper parathyroid had XRT now has hypo- Renal/ Medical History: Denies: Hx Peritoneal Dialysis GI Medical History: Reports: Hx Colonoscopy - Polypectomy Past Surgical History: Reports: Hx Section - x3, Hx Cholecystectomy, Hx Hysterectomy - Immunizations Hx Diphtheria, Pertussis, Tetanus Vaccination: Yes Review of Systems - Review of Systems Constitutional: Malaise, Weakness EENT: Blurred vision - Only when experiencing vertiginous symptoms, Ear pain. denies: Difficulty swallowing Cardiovascular: Dizziness. denies: Chest pain, Palpitations, Syncope, Lightheaded Respiratory: denies: Cough, Short of breath Gastrointestinal: Nausea, Vomiting Genitourinary: No symptoms reported. denies: Dysuria, Flank pain, Hematuria Female Genitourinary: No symptoms reported Musculoskeletal: denies: Back pain, Muscle pain Skin: denies: Rash Hematologic/Lymphatic: No symptoms reported Neurological/Psychological: Headaches. denies: Confusion, Weakness, Gait changes, Loss of power, Speech impairment, Numbness, Tingling -: Yes All other systems reviewed and negative Physical Exam - Vital signs Vitals: Pulse Resp BP Pulse Ox 78 18 185/120 H 100 06/17/18 14:27 06/17/18 14:27 06/17/18 14:27 06/17/18 14:27 - Notes Notes: PHYSICAL EXAMINATION: GENERAL: Well-appearing, well-nourished and in no acute distress. HEAD: Atraumatic, normocephalic. EYES: Pupils equal round and reactive to light, extraocular movements intact, conjunctiva are normal. Left-sided nystagmus ENT: Nares patent, oropharynx clear without exudates. Moist mucous membranes. TMs clear bilaterally NECK: Normal range of motion, supple without lymphadenopathy LUNGS: Breath sounds clear to auscultation bilaterally and equal. No wheezes rales or rhonchi. HEART: Regular rate and rhythm without murmurs ABDOMEN: Soft, nontender, nondistended abdomen. No guarding, no rebound. No masses appreciated. Female : deferred Musculoskeletal: Normal range of motion, no pitting or edema. No cyanosis. NEUROLOGICAL: NIH 0. Mental status; alert and oriented x3. Cranial nerves II through XII intact. Sensation intact to sharp/dull differentiation in all extremities. Motor; normal tone. No abnormal movements appreciated. No pronator drift. Strength tested and 5/5 in bilateral wrist flexion/extension, elbow flexion/extension, shoulder abduction, straight leg raise, knee flexion/extension, ankle dorsiflexion/plantar flexion. Patient ambulates with a steady gait. Coordination; no ataxia. Finger to nose and heel to hansen testing intact bilaterally. Reflexes; brachial radialis, biceps, and patellar reflexes within normal limits and symmetric bilaterally. Babinski with downgoing toes bilaterally. PSYCH: Normal mood, normal affect. SKIN: Warm, Dry, normal turgor, no rashes or lesions noted. Course - Re-evaluation Re-evalutation: Laboratory 06/17/18 06/17/18 06/17/18 15:45 15:45 15:45 WBC 6.2 RBC 4.65 Hgb 14.6 Hct 41.5 MCV 89 MCH 31.3 MCHC 35.1 RDW 14.8 H Plt Count 167 Seg Neutrophils % 60.4 Lymphocytes % 31.1 Monocytes % 4.2 Eosinophils % 3.4 Basophils % 0.9 Absolute Neutrophils 3.7 Absolute Lymphocytes 1.9 Absolute Monocytes 0.3 Absolute Eosinophils 0.2 Absolute Basophils 0.1 Sodium 143.8 Potassium 3.4 L Chloride 104 Carbon Dioxide 32 H Anion Gap 8 BUN 15 Creatinine 1.36 H Est GFR ( Amer) 50 L Est GFR (Non-Af Amer) 41 L Glucose 89 Calcium 9.6 Total Bilirubin 0.6 Direct Bilirubin 0.3 Neonat Total Bilirubin Not Reportable Neonat Direct Bilirubin Not Reportable Neonat Indirect Bili Not Reportable AST 28 ALT 25 Alkaline Phosphatase 52 Troponin I 0.013 Total Protein 7.5 Albumin 4.3 Urine Color Urine Appearance Urine pH Ur Specific Oneill Urine Protein Urine Glucose (UA) Urine Ketones Urine Blood Urine Nitrite Urine Bilirubin Urine Urobilinogen Ur Leukocyte Esterase Urine WBC (Auto) Urine RBC (Auto) Urine Bacteria (Auto) Squamous Epi Cells Auto Urine Mucus (Auto) Urine Ascorbic Acid 06/17/18 16:50 WBC RBC Hgb Hct MCV MCH MCHC RDW Plt Count Seg Neutrophils % Lymphocytes % Monocytes % Eosinophils % Basophils % Absolute Neutrophils Absolute Lymphocytes Absolute Monocytes Absolute Eosinophils Absolute Basophils Sodium Potassium Chloride Carbon Dioxide Anion Gap BUN Creatinine Est GFR ( Amer) Est GFR (Non-Af Amer) Glucose Calcium Total Bilirubin Direct Bilirubin Neonat Total Bilirubin Neonat Direct Bilirubin Neonat Indirect Bili AST ALT Alkaline Phosphatase Troponin I Total Protein Albumin Urine Color STRAW Urine Appearance CLEAR Urine pH 7.0 Ur Specific Oneill 1.006 Urine Protein NEGATIVE Urine Glucose (UA) NEGATIVE Urine Ketones NEGATIVE Urine Blood SMALL H Urine Nitrite NEGATIVE Urine Bilirubin NEGATIVE Urine Urobilinogen NEGATIVE Ur Leukocyte Esterase NEGATIVE Urine WBC (Auto) 2 Urine RBC (Auto) 0 Urine Bacteria (Auto) TRACE Squamous Epi Cells Auto 4 Urine Mucus (Auto) RARE Urine Ascorbic Acid NEGATIVE Chest X-Ray 06/17/18 14:57 IMPRESSION: Cardiomegaly without acute abnormality of the lungs. No focal airspace opacity. Head CT 06/17/18 14:57 IMPRESSION: No acute intracranial pathology. No noncontrast CT findings to explain headache. EVIDENCE OF ACUTE STROKE: NO. Temp Pulse Resp BP Pulse Ox 98.3 F 84 14 141/93 H 94 06/17/18 14:37 06/17/18 17:27 06/17/18 18:31 06/17/18 18:31 06/17/18 18:31 06/17/18 15:07 [id number] female with untreated hypertension presents with head pressure, vertiginous symptoms, nausea, vomiting, headache and left ear pain. Patient evaluated. Vital signs were reviewed. Patient is hypertensive but afebrile, not hypoxic or tachycardic Previous medical records and nursing notes reviewed. Patient does not appear toxic or dehydrated they are in no acute distress Exam Findings: Left-sided nystagmus Lab Findings: CBC is without leukocytosis or anemia. CMP shows no electrolte abnormalities and normal renal function. LFTs WNL. UA not consistent with UTI. Cardiac enzymes within normal limits. EKG: Normal sinus rhythm at a rate of 63, QTC 426, QRS 106. There is some flattening of the T waves Patient Interventions/Monitor: Patient received IV fluids, meclizine, Zofran, Benadryl, Valium, hydralazine. Revaluation: Patient reports complete resolution of her headache, dizziness, nausea. MDM:Presentation of vertigo that appears most consistent with a benign peripheral vertigo. Patient has no abnormal findings on exam. Normal cerebellar testing, steady even gait. Able to walk on heels and toes. Normal proprioception. Patient is not an elevated risk for a cerebellar infarction given age, absence of significant risk factors. Patient did have improvement of symptoms here in the emergency department with meclizine. Suspect likely acute vestibular neuritis. I do not believe neurologic imaging is indicated at this time based on physical examination and clinical history. Patient will be discharged with recommendations to return should their symptoms worsen or they develop new concerning symptoms. Disposition: Discharge home 06/17/18 18:58 06/17/18 19:01 - Vital Signs Vital signs: Temp Pulse Resp BP Pulse Ox 98.7 F 87 14 141/93 H 94 06/17/18 18:27 06/17/18 18:27 06/17/18 18:31 06/17/18 18:31 06/17/18 18:31 - Laboratory Result Diagrams: 06/17/18 15:45 06/17/18 15:45 Laboratory results interpreted by me: 06/17/18 06/17/18 06/17/18 15:45 15:45 16:50 RDW 14.8 H Potassium 3.4 L Carbon Dioxide 32 H Creatinine 1.36 H Est GFR ( Amer) 50 L Est GFR (Non-Af Amer) 41 L Urine Blood SMALL H - Diagnostic Test Radiology reviewed: Image reviewed, Reports reviewed - EKG Interpretation by Me EKG shows normal: Sinus rhythm Rate: Normal Rhythm: NSR - Flattening of T waves When compared to previous EKG there are: No significant change Discharge - Discharge Clinical Impression: LANCE (acute kidney injury) Benign positional vertigo Qualifiers: Laterality: left Qualified Code(s): H81.12 - Benign paroxysmal vertigo, left ear Hypertension Qualifiers: Hypertension type: unspecified Qualified Code(s): I10 - Essential (primary) hypertension Condition: Good Disposition: HOME, SELF-CARE Instructions: Antinausea Medication ([facility]), Dizziness ([facility]), Meclizine ([facility]), Vertigo ([facility]) Additional Instructions: Follow up with your [id number] hours for further care or return to the ED IMMEDIATELY if symptoms worsen or you have any concerns. If you cannot afford to follow up with your primary care physician a list of low cost clinics have been provided at the end of your discharge papers as well. Most prescribed medications have multiple side effects. The safest thing to do is when filling your prescription speak to your pharmacist regarding possible interactions with your normal home medications and over the counter medications such as Ibuprofen, Tylenol, Benadryl. If you experience any symptoms that cause you discomfort or concern you should discontinue the medication immediately and return to the emergency room or call your primary care physician. Prescriptions: Amlodipine Besylate [Norvasc 10 mg Tablet] 10 mg PO DAILY #30 tablet RX: Meclizine HCl [Antivert 25 mg Tablet] 25 mg PO Q8H #15 tablet Forms: Elevated Blood Pressure Referrals: [facility] [Outside] - Follow up in 3-5 days
--- NOTE | 2018-06-17 15:24 | RADIOLOGY REPORT (SQ) ---
EXAM DESCRIPTION: CT HEAD WITHOUT COMPLETED DATE/TIME: 06/17/2018 3:13 pm REASON FOR STUDY: headache COMPARISON: 09/27/2017 TECHNIQUE: Axial images acquired through the brain without intravenous contrast. Images reviewed wi th bone, brain and subdural windows. Additional sagittal and coronal reconstructions were generated. Images stored on PACS. All CT scanners at this facility use dose modulation, iterative reconstruction, and/or weight based d osing when appropriate to reduce radiation dose to as low as reasonably achievable (ALARA). [facility]: Dose Right [facility]: CareDose [facility]: Dose Right [facility]: Teradose 4D [facility]: Smart [place] RADIATION DOSE: CT Rad equipment meets quality standard of care and radiation dose reduction techniq ues were employed. CTDIvol: 53.2 mGy. DLP: 1044 mGy-cm. mGy. LIMITATIONS: None. FINDINGS: VENTRICLES: Normal size and contour. CEREBRUM: No masses. No hemorrhage. No midline shift. No evidence for acute infarction. Normal gra y/white matter differentiation. No areas of low density in the white matter. CEREBELLUM: No masses. No hemorrhage. No alteration of density. No evidence for acute infarction. EXTRAAXIAL SPACES: No fluid collections. No masses. ORBITS AND GLOBE: No intra- or extraconal masses. Normal contour of globe without masses. CALVARIUM: No fracture. PARANASAL SINUSES: No fluid or mucosal thickening. SOFT TISSUES: No mass or hematoma. OTHER: No other significant finding. IMPRESSION: No acute intracranial pathology. No noncontrast CT findings to explain headache. EVIDENCE OF ACUTE STROKE: NO. COMMENT: Quality ID # [id number]: Final reports with documentation of one or more dose reduction techniques (e.g., Automated exposure control, adjustment of the mA and/or kV according to patient size, use of iterative reconstruction technique) TECHNICAL DOCUMENTATION: JOB ID: [id number] [employer])- All Rights Reserved Reading location - IP/workstation name: [email or web address]
--- NOTE | 2018-06-17 15:35 | RADIOLOGY REPORT (SQ) ---
EXAM DESCRIPTION: CHEST 2 VIEWS COMPLETED DATE/TIME: 06/17/2018 3:25 pm REASON FOR STUDY: sob COMPARISON: 10/04/2017 EXAM PARAMETERS: NUMBER OF VIEWS: two views TECHNIQUE: Digital Frontal and Lateral radiographic views of the chest acquired. RADIATION DOSE: NA LIMITATIONS: none FINDINGS: LUNGS AND PLEURA: No opacities, masses or pneumothorax. No pleural effusion. MEDIASTINUM AND HILAR STRUCTURES: No masses or contour abnormalities. HEART AND VASCULAR STRUCTURES: Cardiomegaly. BONES: No acute findings. HARDWARE: None in the chest. OTHER: No other significant finding. IMPRESSION: Cardiomegaly without acute abnormality of the lungs. No focal airspace opacity. TECHNICAL DOCUMENTATION: JOB ID: [id number] [employer]- All Rights Reserved Reading location - IP/workstation name: [email or web address]
[2018-06-17 16:13] LABS: ABSOLUTE BASOPHILS # (AUTO) 0.1 10^3/uL (0.0-0.2); ABSOLUTE EOSINOPHILS # (AUTO) 0.2 10^3/uL (0.0-0.6); ABSOLUTE LYMPHOCYTES (AUTO) 1.9 10^3/uL (0.5-4.7); ABSOLUTE MONOCYTES (AUTO) 0.3 10^3/uL (0.1-1.4); ABSOLUTE NEUT (AUTO) 3.7 10^3/uL (1.7-8.2); BASOPHILS % (AUTO) 0.9 % (0-2); EOSINOPHILS % (AUTO) 3.4 % (0-6); HEMATOCRIT 41.5 % (36.0-47.0); HEMOGLOBIN 14.6 g/dL (12.0-15.5); LYMPHOCYTES % (AUTO) 31.1 % (13-45); MEAN CORPUSCULAR HEMOGLOBIN 31.3 pg (27.0-33.4); MEAN CORPUSCULAR HGB CONC 35.1 g/dL (32.0-36.0); MEAN CORPUSCULAR VOLUME 89 fl (80-97); MONOCYTES % (AUTO) 4.2 % (3-13); PLATELET COUNT 167 10^3/uL (150-450); RED BLOOD COUNT 4.65 10^6/uL (3.72-5.28); RED CELL DISTRIBUTION WIDTH 14.8 % (11.5-14.0); SEGMENTED NEUTROPHILS % (AUTO) 60.4 % (42-78); TOTAL CELLS COUNTED % (AUTO) 100 %; WHITE BLOOD COUNT 6.2 10^3/uL (4.0-10.5)
[2018-06-17 16:31] LABS: ALANINE AMINOTRANSFERASE 25 U/L (9-52); ALBUMIN 4.3 g/dL (3.5-5.0); ALKALINE PHOSPHATASE 52 U/L (38-126); ANION GAP 8 (5-19); ASPARTATE AMINO TRANSFERASE 28 U/L (14-36); BILIRUBIN,DIRECT 0.3 mg/dL (0.0-0.4); BILIRUBIN,TOTAL 0.6 mg/dL (0.2-1.3); BLOOD UREA NITROGEN 15 mg/dL (7-20); CALCIUM 9.6 mg/dL (8.4-10.2); CARBON DIOXIDE 32 mmol/L (22-30); CHLORIDE 104 mmol/L (98-107); GLUCOSE 89 mg/dL (75-110); POTASSIUM 3.4 mmol/L (3.6-5.0); SODIUM 143.8 mmol/L (137-145); TOTAL PROTEIN 7.5 g/dL (6.3-8.2)
[2018-06-17 17:44] LABS: APPEARANCE,URINE CLEAR; BILIRUBIN,URINE NEGATIVE (NEGATIVE); COLOR,URINE STRAW; GLUCOSE, URINE NEGATIVE (NEGATIVE); KETONES,URINE NEGATIVE (NEGATIVE); LEUKOCYTE ESTERASE,URINE NEGATIVE (NEGATIVE); NITRITE,URINE NEGATIVE (NEGATIVE); PROTEIN,URINE NEGATIVE (NEGATIVE); URINE SPECIFIC GRAVITY 1.006; UROBILINOGEN,URINE NEGATIVE mg/dL (<2.0)
[2018-06-17] MEDS: HYDRALAZINE HCL INJ/PF 20 MG/1 ML SDV IV ONE ×2 (17:51→17:55)
[2018-06-17 19:00] VITALS: BP 168/89
--- NOTE | 2018-06-17 19:32 | EKG REPORT ---
SEVERITY:- ABNORMAL ECG - SINUS RHYTHM NONSPECIFIC T ABNORMALITIES, LATERAL LEADS : Confirmed by: Gillian Humphrey MD 17-Jun-2018 19:31:39
== END 2018-06-17 19:22 | disposition home or self-care (01) ==
LOC: ER 14:26
DX: H81.12 Benign paroxysmal vertigo, left ear (principal); N17.9 Acute kidney failure, unspecified; R51 Headache; I10 Essential (primary) hypertension; R42 Dizziness and giddiness; R53.1 Weakness; R11.2 Nausea with vomiting, unspecified; J34.89 Other specified disorders of nose and nasal sinuses; R63.0 Anorexia; H92.02 Otalgia, left ear; R53.81 Other malaise; H53.8 Other visual disturbances; Z88.5 Allergy status to narcotic agent
CPT/HCPCS: 93005; 99284; 96361; 96374; 96375; 36415; 85025; 80053; 81001; 84484; 71046; 70450; 93010; J1200; J0360; J2405; J7120

== ENCOUNTER 2018-08-25 13:55 | Inpatient (IN) | payer SELFPAY ==
[2018-08-25] MEDS ORDERED: ASPIRIN 81 MG TABLET, CHEWABLE PO ONE (14:41)
--- NOTE | 2018-08-25 14:45 | ER Document Report ---
ED Medical Screen (RME) - General Chief Complaint: Chest Pain Stated Complaint: CHEST PAIN Time Seen by Provider: 08/25/18 14:40 Mode of Arrival: Wheelchair Information source: Patient Notes: 53-year-old female presents to ED for complaint of chest pain off and on for the last 3 days. She states is mostly when she is active when she is resting still it does not hurt. She states when she is up and walking it feels like a sword stabbing to her chest but when she is resting it does not. He states she is having 2-3+ edema to her hands and feet. Worse when she is up and walking. Patient is alert oriented respirations regular and unlabored speaking in full sentences walks with a even steady gait. I have greeted and performed a rapid initial assessment of this patient. A comprehensive ED assessment and evaluation of the patient, analysis of test results and completion of medical decision making process will be conducted by an additional ED providers. Dictation of this chart was performed using voice recognition software; therefore, there may be some unintended grammatical errors. TRAVEL OUTSIDE OF THE [place] IN LAST 30 DAYS: No - Related Data Allergies/Adverse Reactions: tramadol Allergy (Verified 08/25/18 14:01) Past Medical History - Social History Chew tobacco use (# tins/day): No Frequency of alcohol use: None Drug Abuse: None - Past Medical History Cardiac Medical History: Reports: Hx Congestive Heart Failure, Hx Hypertension Neurological Medical History: Reports: Hx Migraine Endocrine Medical History: Reports: Hx Hypothyroidism - Had hyper parathyroid had XRT now has hypo- Renal/ Medical History: Denies: Hx Peritoneal Dialysis GI Medical History: Reports: Hx Colonoscopy - Polypectomy Past Surgical History: Reports: Hx Section - x3, Hx Cholecystectomy, Hx Hysterectomy - Immunizations Hx Diphtheria, Pertussis, Tetanus Vaccination: Yes Physical Exam - Vital signs Vitals: Temp Pulse Resp BP Pulse Ox 98.2 F 58 L 18 162/117 H 96 08/25/18 14:14 08/25/18 14:14 08/25/18 14:14 08/25/18 14:14 08/25/18 14:14 Course - Vital Signs Vital signs: Temp Pulse Resp BP Pulse Ox 98.2 F 58 L 18 162/117 H 96 08/25/18 14:14 08/25/18 14:14 08/25/18 14:14 08/25/18 14:14 08/25/18 14:14
--- NOTE | 2018-08-25 14:54 | RADIOLOGY REPORT (SQ) ---
EXAM DESCRIPTION: CHEST SINGLE VIEW COMPLETED DATE/TIME: 08/25/2018 2:42 pm REASON FOR STUDY: CP COMPARISON: Chest films 10/04/2017, 10/06/2017, 06/17/2018 EXAM PARAMETERS: NUMBER OF VIEWS: One view. TECHNIQUE: Single frontal radiographic view of the chest acquired. RADIATION DOSE: NA LIMITATIONS: None. FINDINGS: LUNGS AND PLEURA: Minimal scarring in the left lateral costophrenic sulcus. Lungs are oth erwise well inflated and clear. No pleural effusion. No pneumothorax. MEDIASTINUM AND HILAR STRUCTURES: No masses. Contour normal. HEART AND VASCULAR STRUCTURES: Heart normal in size. Normal vasculature. BONES: No acute findings. HARDWARE: None in the chest. OTHER: No other significant finding. IMPRESSION: NO ACUTE RADIOGRAPHIC FINDING IN THE CHEST. TECHNICAL DOCUMENTATION: JOB ID: [id number] [email or web address] All Rights Reserved Reading location - IP/workstation name: [email or web address]
[2018-08-25 15:26] LABS: ABSOLUTE EOSINOPHILS # (AUTO) 0.2 10^3/uL (0.0-0.6); ABSOLUTE LYMPHOCYTES (AUTO) 1.8 10^3/uL (0.5-4.7); ABSOLUTE MONOCYTES (AUTO) 0.3 10^3/uL (0.1-1.4); ABSOLUTE NEUT (AUTO) 3.4 10^3/uL (1.7-8.2); BASOPHILS % (AUTO) 0.1 % (0-2); EOSINOPHILS % (AUTO) 4.1 % (0-6); HEMOGLOBIN 14.3 g/dL (12.0-15.5); LYMPHOCYTES % (AUTO) 31.1 % (13-45); MEAN CORPUSCULAR HEMOGLOBIN 31.5 pg (27.0-33.4); MEAN CORPUSCULAR VOLUME 90 fl (80-97); MONOCYTES % (AUTO) 5.3 % (3-13); PLATELET COUNT 175 10^3/uL (150-450); RED BLOOD COUNT 4.54 10^6/uL (3.72-5.28); RED CELL DISTRIBUTION WIDTH 15.3 % (11.5-14.0); SEGMENTED NEUTROPHILS % (AUTO) 59.4 % (42-78); TOTAL CELLS COUNTED % (AUTO) 100 %; WHITE BLOOD COUNT 5.7 10^3/uL (4.0-10.5)
[2018-08-25 15:27] LABS: APPEARANCE,URINE SLIGHTLY-CLOUDY; BILIRUBIN,URINE NEGATIVE (NEGATIVE); COLOR,URINE YELLOW; GLUCOSE, URINE NEGATIVE (NEGATIVE); INTERNATIONAL RATION (INR) 1.09; KETONES,URINE NEGATIVE (NEGATIVE); LEUKOCYTE ESTERASE,URINE NEGATIVE (NEGATIVE); NITRITE,URINE NEGATIVE (NEGATIVE); PROTEIN,URINE NEGATIVE (NEGATIVE); PROTHROMBIN TIME 14.2 SEC (11.4-15.4); URINE SPECIFIC GRAVITY 1.021; UROBILINOGEN,URINE NEGATIVE mg/dL (<2.0)
[2018-08-25 15:39] LABS: ALANINE AMINOTRANSFERASE 21 U/L (9-52); ALBUMIN 4.7 g/dL (3.5-5.0); ALKALINE PHOSPHATASE 49 U/L (38-126); ANION GAP 7 (5-19); ASPARTATE AMINO TRANSFERASE 33 U/L (14-36); BILIRUBIN,DIRECT 0.3 mg/dL (0.0-0.4); BILIRUBIN,TOTAL 0.7 mg/dL (0.2-1.3); BLOOD UREA NITROGEN 23 mg/dL (7-20); CALCIUM 9.7 mg/dL (8.4-10.2); CARBON DIOXIDE 32 mmol/L (22-30); CHLORIDE 106 mmol/L (98-107); CREATINE KINASE 172 U/L (30-135); GLUCOSE 89 mg/dL (75-110); POTASSIUM 3.8 mmol/L (3.6-5.0); SODIUM 145.1 mmol/L (137-145)
[2018-08-25 15:51] LABS: CREATINE KINASE MB 2.98 ng/mL (<4.55)
[2018-08-25 15:52] LABS: TROPONIN I < 0.012 ng/mL
[2018-08-25] MEDS: NITROGLYCERIN 0.4 MG/TAB 25 TAB/BOTTLE SL PRN ×2 (19:46→20:00)
--- NOTE | 2018-08-25 20:12 | ER Document Report ---
ED Cardiac - General Chief Complaint: Chest Pain Stated Complaint: CHEST PAIN Time Seen by Provider: 08/25/18 14:40 Mode of Arrival: Wheelchair Information source: Patient TRAVEL OUTSIDE OF THE [place] IN LAST 30 DAYS: No - HPI Patient complains to provider of: Chest pain, Chest tightness Was the onset of pain: Gradual Chest pain location: Substernal Severity now: Moderate Chest pain precipitating factors: Physical Exertion Cardiac risk factors: Hypertension, Smoker, + Family history Positive cardiac history: No Exacerbated by: Activity Relieved by: Rest Notes: 53-year-old female ex-smoker quit a few months ago. Has a history of long- standing hypertension she is currently out of her blood pressure medications Norvasc. She been having exertional chest pain short of breath for about a week. Describes it as a pressure at times no headache no blurred vision no neuro symptoms. Patient says she is never had a cardiac catheterization before this been years she she has had a stress test. No fevers no cough no abdominal pain no back pain. Patient presented to the ER with diastolic blood pressures in the 1 10-1 20 range. - Related Data Allergies/Adverse Reactions: tramadol Allergy (Verified 08/25/18 14:01) Past Medical History - General Information source: Patient - Social History Smoking Status: Former Smoker Chew tobacco use (# tins/day): No Frequency of alcohol use: None Drug Abuse: None Family History: Reviewed & Not Pertinent, CAD, Hypertension Patient has suicidal ideation: No Patient has homicidal ideation: No - Past Medical History Cardiac Medical History: Reports: Hx Congestive Heart Failure, Hx Hypertension Neurological Medical History: Reports: Hx Migraine Endocrine Medical History: Reports: Hx Hypothyroidism - Had hyper parathyroid had XRT now has hypo- Renal/ Medical History: Denies: Hx Peritoneal Dialysis GI Medical History: Reports: Hx Colonoscopy - Polypectomy Past Surgical History: Reports: Hx Section - x3, Hx Cholecystectomy, Hx Hysterectomy - Immunizations Hx Diphtheria, Pertussis, Tetanus Vaccination: Yes Physical Exam - Vital signs Vitals: Temp Pulse Resp BP Pulse Ox 98.2 F 58 L 18 162/117 H 96 08/25/18 14:14 08/25/18 14:14 08/25/18 14:14 08/25/18 14:14 08/25/18 14:14 - Notes Notes: PHYSICAL EXAMINATION: GENERAL: Well-appearing, well-nourished and in no acute distress. Hypertensive HEAD: Atraumatic, normocephalic. EYES: Pupils equal round and reactive to light, extraocular movements intact, sclera anicteric, conjunctiva are normal. ENT: nares patent, oropharynx clear without exudates. Moist mucous membranes. NECK: Normal range of motion, supple without lymphadenopathy LUNGS: Breath sounds clear to auscultation bilaterally and equal. No wheezes rales or rhonchi. HEART: Regular rate and rhythm without murmurs ABDOMEN: Soft, nontender, normoactive bowel sounds. No guarding, no rebound. No masses appreciated. EXTREMITIES: Normal range of motion, no pitting or edema. No cyanosis. NEUROLOGICAL: No focal neurological deficits. Moves all extremities spontaneously and on command. PSYCH: Normal mood, normal affect. SKIN: Warm, Dry, normal turgor, no rashes or lesions noted. Course - Re-evaluation Re-evalutation: 08/25/18 20:50 Chest pain is better with nitroglycerin. Blood pressure did not come down as much as anticipated. Dose of 20 mg IV hydralazine ordered for the patient. She has had an aspirin 3 nitro who put her on Intropaste. I spoke with Dr. Gonzalez. He will come see the patient evaluated for admission. 08/25/18 21:36 Patient became acutely agitated anxious appearing complaining of a whooshing headache sensation. And worsening chest pain. Blood pressure still elevated even after the dose of hydralazine. Patient says it started after the hydralazine dose and not sure if that made her feel this way. Repeat EKG is normal sinus rhythm nothing acute no changes noted. I did treated with 50 of Be nadryl to help calm her and may be counteract some of the side effects of the medication. And she feels better. She still has sensation of pain in her chest and headache but that her symptoms of improved. I have ordered a CT head and a CT chest with contrast. Patient has a creatinine 1.4-discussed with her the risks with her creatinine being slightly elevated. She wants to proceed with CT scan. She understands the risks. She understands there is a chance of some renal impairment or damage with IV contrast. And she is willing to proceed. - Vital Signs Vital signs: Temp Pulse Resp BP Pulse Ox 97.8 F 46 L 11 L 177/113 H 96 08/25/18 16:47 08/25/18 16:47 08/25/18 20:31 08/25/18 20:31 08/25/18 20:31 - Laboratory Result Diagrams: 08/25/18 15:05 08/25/18 15:05 Laboratory results interpreted by me: 08/25/18 08/25/18 08/25/18 15:05 15:05 15:05 RDW 15.3 H Sodium 145.1 H Carbon Dioxide 32 H BUN 23 H Creatinine 1.44 H Est GFR ( Amer) 46 L Est GFR (Non-Af Amer) 38 L Creatine Kinase 172 H Urine Blood SMALL H - EKG Interpretation by Me EKG shows normal: Sinus rhythm Rate: Bradycardia Rhythm: NSR Additional EKG results interpreted by me: 08/25/18 20:53 EKG shows a normal sinus bradycardia 55 beats a minute normal axis poor R wave progression nonspecific ST-T changes. Discharge - Discharge Clinical Impression: Uncontrolled hypertension Chest pain Qualifiers: Chest pain type: chest pain due to myocardial ischemia Ischemic chest pain type: unspecified angina pectoris type Qualified Code(s): I25.9 - Chronic ischemic heart disease, unspecified Condition: Good Disposition: ADMITTED INPATIENT Admitting Provider: Lisa (Hospitalist) Unit Admitted: [facility]
[2018-08-25] MEDS ORDERED: HYDRALAZINE HCL INJ/PF 20 MG/1 ML SDV IV ONE (20:38)
[2018-08-25] MEDS ORDERED: ONDANSETRON HCL INJ/PF 4 MG/2 ML SDV IV ONE (20:44)
[2018-08-25] MEDS ORDERED: MORPHINE SULFATE 10 MG/ML INJ IV ONE (20:44)
[2018-08-25] MEDS ORDERED: DIPHENHYDRAMINE HCL 50 MG/ML VIAL IV ONE (21:23)
[2018-08-25] MEDS ORDERED: MAGNESIUM HYDROXIDE SUSP 30 ML UDCUP PO PRN (21:45)
[2018-08-25] MEDS ORDERED: ONDANSETRON 4 MG TAB.RAPDIS PO PRN (21:45)
[2018-08-25] MEDS ORDERED: MAG HYDROX/AL HYDROX/SIMETH SUSP 30 ML UDCUP PO PRN (21:45)
[2018-08-25] MEDS ORDERED: ONDANSETRON HCL INJ/PF 4 MG/2 ML SDV IV PRN (21:45)
[2018-08-25] MEDS ORDERED: ACETAMINOPHEN 325 MG TABLET PO PRN (21:53)
[2018-08-25] MEDS ORDERED: HYDRALAZINE HCL INJ/PF 20 MG/1 ML SDV IV PRN (21:53)
[2018-08-25] MEDS ORDERED: MORPHINE SULFATE 10 MG/ML INJ IV PRN ×4 (21:53→22:06)
[2018-08-25] MEDS ORDERED: LEVALBUTEROL HCL NEB 0.63 MG/3 ML AMPUL NEB PRN (21:53)
[2018-08-25] MEDS ORDERED: ATORVASTATIN CALCIUM 20 MG TABLET PO ONE (22:15)
[2018-08-25] MEDS ORDERED: AMLODIPINE BESYLATE 10 MG TABLET PO ONE (22:30)
[2018-08-25] MEDS: ZOLPIDEM TARTRATE 5 MG TABLET PO PRN (22:35)
[2018-08-25] MEDS: FAMOTIDINE 20 MG TABLET PO SCH (22:36)
[2018-08-25 22:59] LABS: TROPONIN I < 0.012 ng/mL
--- NOTE | 2018-08-25 23:12 | EKG REPORT ---
SEVERITY:- ABNORMAL ECG - SINUS RHYTHM BORDERLINE R WAVE PROGRESSION, ANTERIOR LEADS BORDERLINE T WAVE ABNORMALITIES : Confirmed by: Norah Cook 25-Aug-2018 23:12:17
--- NOTE | 2018-08-25 23:29 | RADIOLOGY REPORT (SQ) ---
EXAM DESCRIPTION: RadLex: CT CHEST WITH IV CONTRAST CLINICAL HISTORY: 53 years Female; CP TECHNIQUE: CT of the chest using intravenous contrast. All CT scans at this facility use dose modulation, iterative reconstruction, and/or weight based dosing when appropriate to reduce radiation dose to as low as reasonably achievable. COMPARISON: Radiograph 08/25/2018. No previous CT.. FINDINGS: Chest: Lungs: Lungs are clear. No pneumothorax or pleural effusion. Mediastinum:No mediastinal mass or adenopathy. Mediastinal vascular structures are unremarkable. Aorta and central pulmonary arteries are normal. Bones:No acute bone findings. Gallbladder is surgically absent. Visualized upper abdomen is otherwise unremarkable. IMPRESSION: 1. Normal CT of the chest 2. Previous cholecystectomy.
--- NOTE | 2018-08-25 23:41 | RADIOLOGY REPORT (SQ) ---
EXAM DESCRIPTION: [facility]Lex: CT HEAD WITHOUT IV CONTRAST CLINICAL HISTORY: 53 years Female; HTN AGUAYO TECHNIQUE: Noncontrast CT head. All CT scans at this facility use dose modulation, iterative reconstruction, and/or weight based dosing when appropriate to reduce radiation dose to as low as reasonably achievable. COMPARISON: 06/17/2018 FINDINGS: [place] matter, white matter, ventricles, and cisterns are within normal limits. No acute hemorrhage or mass effect. Visualized portions of paranasal sinuses and mastoids are clear. Visualized portions of the calvarium are within normal limits. IMPRESSION: 1. No acute intracranial findings.
[2018-08-26] MEDS ORDERED: METOPROLOL TARTRATE PF/INJ 5 MG/5 ML SDV IV PRN (01:21)
--- NOTE | 2018-08-26 01:25 | PDOC H&P ---
History of Present Illness Admission Date/PCP: 08/25/2018 No local PCP Patient complains of: Chest pain History of Present Illness: ANMOL STEINBERG is a 53 year old female who presented to the emergency room with a 2-week history of chest pain. She admits to the gradual onset of intermittent episodes of constant, moderate to severe, crushing pressure-like substernal chest pain usually occurring on moderate exertion, but on 1 or 2 occasions occurring while resting in bed, without radiation over the course of the last 2 weeks. The frequency and intensity of the chest pain has been increasing over that period of time and the most redent episodes have been noted to last for a few minutes and slowly resolve spontaneously with rest. Her chest pain has been accompanied by moderate dyspnea, orthostasis with rapid standing from a sitting or recumbent position and daytime swelling of her hands and feet. She admits prior similar episodes occurring about a year ago when she had a Cardiolite stress test done at this hospital that showed no evidence of operable coronary artery disease. She denies identification of any additional aggravating or ameliorating factors for her chest pain. In the emergency room she was found to have a normal troponin and an EKG which showed no evidence of acute cardiac ischemia or injury. She was noted to be severely hypertensive and admitted to not having taken her Norvasc for an extended period of time because she has been out of her medication. She was subsequently treated in the emergency room and eventually admitted to the [facility] for further evaluation and treatment. Past Medical History Past Medical History: Patient admits that she has not been taking her antihypertensive medication (amlodipine) because taking it for 30 days of taking it and checking her blood pressure twice a day at home she found absolutely no difference in her blood pressure (170's/110's) on the medication. Cardiac Medical History: Reports: Hyperlipidema, Hypertension Denies: Atrial Fibrillation, Congestive Heart Failure, Coronary Artery Disease, DVT, Myocardial Infarction, Pulmonary Embolism Pulmonary Medical History: Reports: Respiratory Failure Denies: Asthma, Chronic Obstructive Pulmonary Disease (COPD) EENT Medical History: Denies: Cataracts, Ears - Hearing aids Neurological Medical History: Reports: Migraine Denies: Hemorrhagic CVA, Ischemic CVA, Multiple Sclerosis, Seizures Endocrine Medical History: Reports: Hypothyroidism - Had hyper parathyroid had XRT now has hypothyroidism, Other - Hyperparathyroidism treated with radiation therapy. Denies: Diabetes Mellitus Type 1, Diabetes Mellitus Type 2, Hyperthyroidism Renal/ Medical History: Reports: Other - Acute renal failure Denies: Chronic Kidney Disease, Nephrolithiasis Malignancy Medical History: Reports: None GI Medical History: Reports: Diverticulitis, Other - Retroperitoneal hemorrhage Denies: Cirrhosis, Crohn's Disease, Hepatitis, Ulcerative Colitis Musculoskeltal Medical History: Denies: Arthritis, Gout Skin Medical History: Denies: Eczema, Psoriasis Psychiatric Medical History: Reports: Tobacco Dependency Denies: Alcohol Dependency, Substance Abuse Traumatic Medical History: Reports: None Hematology: Denies: Anemia, Bleeding Tendencies Infectious Medical History: Reports: None Past Surgical History Past Surgical History: Reports: Section - x3, Cholecystectomy, Hysterectomy Social History Information Source: Patient Lives with: Family Smoking Status: Former Smoker - Quit 3 months ago Frequency of Alcohol Use: None Hx Recreational Drug Use: No Drugs: None Hx Prescription Drug Abuse: No - Advance Directive Resuscitation Status: Full Code Surrogate healthcare decision maker:: Lorna Ramirez her daughter Family History Family History: CAD, Hypertension Parental Family History Reviewed: Yes Children Family History Reviewed: No Sibling(s) Family History Reviewed.: Yes Medication/Allergy Home Medications: Amlodipine Besylate [Norvasc 10 mg Tablet] 10 mg PO DAILY 10/04/17 Atorvastatin Calcium [Lipitor 20 mg Tablet] 20 mg PO QHS 10/04/17 Amox Tr/Potassium Clavulanate [Augmentin "500" Tablet] 1 tab PO Q8 #15 tablet 10/08/17 Amlodipine Besylate [Norvasc 10 mg Tablet] 10 mg PO DAILY #30 tablet 06/17/18 Meclizine HCl [Antivert 25 mg Tablet] 25 mg PO Q8H #15 tablet 06/17/18 Allergies/Adverse Reactions: tramadol Allergy (Verified 08/25/18 14:01) Review of Systems Constitutional: ABSENT: chills, fever(s) Eyes: ABSENT: visual disturbances, other - Eye pain will confirm with a clinic note Ears: ABSENT: hearing changes, other - Ear pain Nose, Mouth, and Throat: ABSENT: mouth pain, sore throat - (five-point Cardiovascular: PRESENT: as per HPI, chest pain, dyspnea on exertion. ABSENT: edema, orthropnea, palpitations Respiratory: ABSENT: cough, dyspnea Gastrointestinal: ABSENT: abdominal pain, constipation, diarrhea, nausea, vomiting Genitourinary: ABSENT: dysuria, hematuria Musculoskeletal: ABSENT: back pain, joint swelling, muscle weakness Integumentary: ABSENT: pruritus, rash Neurological: ABSENT: confusion, convulsions, focal weakness, memory loss, syncope Psychiatric: ABSENT: anxiety, depression Endocrine: ABSENT: cold intolerance, heat intolerance Hematologic/Lymphatic: ABSENT: easy bleeding, easy bruising Physical Exam Vital Signs: Temp Pulse Resp BP Pulse Ox 97.8 F 46 L 11 L 177/113 H 96 08/25/18 16:47 08/25/18 16:47 08/25/18 20:31 08/25/18 20:31 08/25/18 20:31 Intake & Output 08/23/18 08/24/18 08/25/18 23:59 23:59 23:59 Weight 127.4 kg General appearance: PRESENT: no acute distress, cooperative Head exam: PRESENT: atraumatic, normocephalic Eye exam: ABSENT: conjunctival injection, scleral icterus Ear exam: PRESENT: normal external ear exam. ABSENT: bleeding, drainage Mouth exam: PRESENT: dry mucosa, neck supple Neck exam: ABSENT: JVD, thyromegaly, tracheal deviation Respiratory exam: PRESENT: clear to auscultation key, symmetrical, unlabored Cardiovascular exam: PRESENT: RRR. ABSENT: clicks, gallop, rubs Pulses: PRESENT: normal radial pulses, normal dorsalis pedis pul Vascular exam: PRESENT: normal capillary refill. ABSENT: pallor GI/Abdominal exam: PRESENT: normal bowel sounds, soft Rectal exam: PRESENT: deferred Extremities exam: ABSENT: joint swelling, pedal edema, tenderness Musculoskeletal exam: PRESENT: full ROM, normal inspection Neurological exam: PRESENT: alert, oriented to person, oriented to place, oriented to time, oriented to situation, CN II-XII grossly intact. ABSENT: motor sensory deficit Psychiatric exam: PRESENT: appropriate affect, normal mood Skin exam: PRESENT: dry, intact, warm. ABSENT: jaundice, rash, urticaria Results Laboratory Results: 08/25/18 15:05 08/25/18 15:05 08/25/18 08/25/18 08/25/18 15:05 15:05 15:05 WBC 5.7 RBC 4.54 Hgb 14.3 Hct 41.0 MCV 90 MCH 31.5 MCHC 35.0 RDW 15.3 H Plt Count 175 Seg Neutrophils % 59.4 Lymphocytes % 31.1 Monocytes % 5.3 Eosinophils % 4.1 Basophils % 0.1 Absolute Neutrophils 3.4 Absolute Lymphocytes 1.8 Absolute Monocytes 0.3 Absolute Eosinophils 0.2 Absolute Basophils 0.0 Sodium 145.1 H Potassium 3.8 Chloride 106 Carbon Dioxide 32 H Anion Gap 7 BUN 23 H Creatinine 1.44 H Est GFR ( Amer) 46 L Est GFR (Non-Af Amer) 38 L Glucose 89 Calcium 9.7 Total Bilirubin 0.7 AST 33 ALT 21 Alkaline Phosphatase 49 Total Protein 8.0 Albumin 4.7 Urine Color YELLOW Urine Appearance SLIGHTLY-CLOUDY Urine pH 6.0 Ur Specific [place] 1.021 Urine Protein NEGATIVE Urine Glucose (UA) NEGATIVE Urine Ketones NEGATIVE Urine Blood SMALL H Urine Nitrite NEGATIVE Ur Leukocyte Esterase NEGATIVE Urine WBC (Auto) 3 Urine RBC (Auto) 3 08/25/18 08/25/18 15:05 15:05 Creatine Kinase 172 H CK-MB (CK-2) 2.98 Troponin I < 0.012 EKG Comments: I have personally reviewed the patient's EKG at the time of admission which shows a normal sinus rhythm at a rate of 95 bpm with nonspecific T wave changes present. Impressions: Chest X-Ray 08/25/18 00:00 IMPRESSION: NO ACUTE RADIOGRAPHIC FINDING IN THE CHEST. Status: Image reviewed by me - I reviewed the patient's chest x-ray personally and find that it shows no acute cardiopulmonary disease. Assessment and Plan - Diagnosis (1) Chest pain Qualifiers: Chest pain type: chest pain due to myocardial ischemia Ischemic chest pain type: unspecified angina pectoris type Qualified Code(s): I25.9 - Chronic ischemic heart disease, unspecified Is this a current diagnosis for this admission?: Yes Plan: Patient is admitted to the [facility] for serial cardiac enzymes and serial EKG evaluations. A cardiology consultation will be obtained with Dr. Humphrey to consider the patient for cardiac catheterization or to assist in optimization of her drug therapy for control of her hypertension and exertional angina. She will use morphine sulfate 2 to 4 mg IV every 2 hours on a as needed basis via sliding scale for chest pain. A lipid profile will be obtained as part of her evaluation. (2) Uncontrolled hypertension Is this a current diagnosis for this admission?: Yes Plan: Patient's usual antihypertensive medications will be restarted and additional therapy will be provided as necessary for control of her blood pressure in the interim. Hydralazine 20 mg IV every 4 hours as needed for systolic blood pressure greater than 160 or diastolic blood pressure greater than 100 will be provided. Cardiology consultation with Dr. Humphrey will include evaluation of and treatment for her hypertension. Daily CBCs, metabolic profiles and magnesium levels will be obtained as part of her ongoing evaluation for hypertension and chest pain. (3) Hypothyroidism (acquired) Is this a current diagnosis for this admission?: Yes Plan: Patient will be continued on her usual thyroid replacement hormone medication. A thyroid profile will be obtained to assess the efficacy of her current therap y. (4) Migraine headache Qualifiers: Migraine type: unspecified Status migrainosus presence: without status migrainosus Intractability: not intractable Qualified Code(s): G43.909 - Migraine, unspecified, not intractable, without status migrainosus Is this a current diagnosis for this admission?: Yes Plan: Patient has a history of migraine headaches which are not currently present. Should she develop a migraine headache she will be treated with her usual migraine pain regimen however if necessary she will receive morphine sulfate 2 to 4 mg IV every 2 hours on a sliding scale basis as needed for pain. (5) Hyperlipidemia Qualifiers: Hyperlipidemia type: unspecified Qualified Code(s): E78.5 - Hyperlipidemia, unspecified Is this a current diagnosis for this admission?: Yes Plan: Patient will be continued on her current dose of Lipitor 20 mg nightly and a lipid profile will be obtained to assess efficacy of therapy. (6) Medical non-compliance Is this a current diagnosis for this admission?: Yes Plan: Patient has not been taking her blood pressure and cholesterol medications because she has not gotten them refilled. It is stressed to her that it is very important for her to take her medications on a regular basis to control her disease process and prevent her from having a heart attack or stroke. - Time Time Spent with patient: 25-34 minutes Medications reviewed and adjusted accordingly: Yes Anticipated discharge: Home - Inpatient Certification Based on my medical assessment, after consideration of the patient's comorbidities, presenting symptoms, or acuity I expect that the services needed warrant INPATIENT care.: Yes I certify that my determination is in accordance with my understanding of Medicare's requirements for reasonable and necessary INPATIENT services [42 CFR 412.3e].: Yes Medical Necessity: Need Close Monitoring Due to Risk of Patient Decompensation, Need For Continuous Telemetry Monitoring, Need for Pain Control, Risk of Complication if Not Cared For in Hospital
--- NOTE | 2018-08-26 01:25 | ADVANCED CARE ---
- Diagnosis (1) Chest pain Diagnosis Current: Yes (2) Uncontrolled hypertension Diagnosis Current: Yes (3) Hypothyroidism (acquired) Diagnosis Current: Yes (4) Migraine headache Diagnosis Current: Yes (5) Hyperlipidemia Diagnosis Current: Yes (6) Medical non-compliance Diagnosis Current: Yes Attendance: Patient and myself Resuscitation Status: Full Code Discussion: The patient is once and desires were discussed and she has determined that she wishes to remain full CODE STATUS for any cardiac or respiratory arrest that might occur during her current hospitalization. Additionally she has decided to name Lorna Ramirez as her designated surrogate medical decision-maker. She chooses not to have a discussion about living [place] at this time. Care Planning Goals: 1. Patient will be full CODE STATUS during her current hospitalization. 2. Lorna Ramirez will be the patient's designated surrogate medical decision- maker. Document(s) Completed: The following entries will be made into the patient's permanent medical record and current stay orders per EMR entry: 1. Patient will be full CODE STATUS during her current hospitalization. 2. Lorna Ramirez will be the patient's designated surrogate medical decision- maker. Time Spent: 8 minutes
[2018-08-26] MEDS ORDERED: METOPROLOL TARTRATE 100 MG TABLET PO ONE ×2 (02:00→04:15)
[2018-08-26 05:12] LABS: HEMATOCRIT 39.1 % (36.0-47.0); HEMOGLOBIN 13.7 g/dL (12.0-15.5); MEAN CORPUSCULAR HEMOGLOBIN 31.4 pg (27.0-33.4); MEAN CORPUSCULAR HGB CONC 35.1 g/dL (32.0-36.0); MEAN CORPUSCULAR VOLUME 90 fl (80-97); PLATELET COUNT 150 10^3/uL (150-450); RED BLOOD COUNT 4.36 10^6/uL (3.72-5.28); RED CELL DISTRIBUTION WIDTH 14.9 % (11.5-14.0); WHITE BLOOD COUNT 5.6 10^3/uL (4.0-10.5)
[2018-08-26 05:36] LABS: ANION GAP 8 (5-19); BLOOD UREA NITROGEN 21 mg/dL (7-20); CALCIUM 9.3 mg/dL (8.4-10.2); CARBON DIOXIDE 27 mmol/L (22-30); CHLORIDE 107 mmol/L (98-107); CHOLESTEROL 273.98 mg/dL (0-200); CREATINE KINASE 125 U/L (30-135); GLUCOSE 90 mg/dL (75-110); POTASSIUM 3.5 mmol/L (3.6-5.0); SODIUM 141.7 mmol/L (137-145); TRIGLYCERIDES 149 mg/dL (<150)
[2018-08-26 05:45] LABS: CREATINE KINASE MB 2.03 ng/mL (<4.55)
[2018-08-26 05:47] LABS: DIRECT LDL 156 mg/dL (<100); TROPONIN I < 0.012 ng/mL
[2018-08-26 05:50] LABS: FREE T3 1.61 pg/mL (2.77-5.27); FREE T4 (FREE THYROXINE) 0.17 ng/dL (0.78-2.19)
[2018-08-26 06:04] LABS: THYROID STIMULATING HORMONE 32.1 uIU/mL (0.47-4.68)
[2018-08-26] MEDS ORDERED: HYDROCHLOROTHIAZIDE 12.5 MG TABLET PO SCH (08:00)
[2018-08-26] MEDS ORDERED: FONDAPARINUX SODIUM INJ 2.5 MG/0.5 ML DISP.SYRIN SUBCUT SCH (08:00)
[2018-08-26] MEDS: DOCUSATE SODIUM 100 MG CAPSULE PO SCH ×2 (09:26→17:17)
[2018-08-26] MEDS: FAMOTIDINE 20 MG TABLET PO SCH ×2 (09:27→21:52)
[2018-08-26] MEDS ORDERED: FONDAPARINUX SODIUM INJ 2.5 MG/0.5 ML DISP.SYRIN SUBCUT ONE (10:00)
[2018-08-26] MEDS ORDERED: METOPROLOL SUCCINATE 50 MG TAB.SR.24H PO SCH (10:00)
[2018-08-26 10:44] LABS: CREATINE KINASE MB 1.86 ng/mL (<4.55)
[2018-08-26 10:52] LABS: TROPONIN I < 0.012 ng/mL
[2018-08-26] MEDS ORDERED: POTASSIUM CHLORIDE 10 MEQ CAPSULE.ER PO ONE (12:00)
[2018-08-26] MEDS: HEPARIN SOD (PORCINE) 5,000 UNIT/ML 1 ML SYRINGE SUBCUT SCH ×2 (13:02→21:53)
--- NOTE | 2018-08-26 13:25 | PDOC PROGRESS REPORT ---
Subjective Progress Note for:: 08/26/18 Subjective:: ANMOL STEINBERG is a 53 year old female who presented to the emergency room with a 2-week history of chest pain. She admits to the gradual onset of intermittent episodes of constant, moderate to severe, crushing pressure-like substernal chest pain usually occurring on moderate exertion, but on 1 or 2 occasions occurring while resting in bed, without radiation over the course of the last 2 weeks. The frequency and intensity of the chest pain has been increasing over that period of time and the most redent episodes have been noted to last for a few minutes and slowly resolve spontaneously with rest. Her chest pain has been accompanied by moderate dyspnea, orthostasis with rapid standing from a sitting or recumbent position and daytime swelling of her hands and feet. She admits prior similar episodes occurring about a year ago when she had a Cardiolite str ess test done at this hospital that showed no evidence of operable coronary artery disease. She denies identification of any additional aggravating or ameliorating factors for her chest pain. In the emergency room she was found to have a normal troponin and an EKG which showed no evidence of acute cardiac ischemia or injury. She was noted to be severely hypertensive and admitted to not having taken her Norvasc for an extended period of time because she has been out of her medication. She was subsequently treated in the emergency room and eventually admitted to the [facility] for further evaluation and treatment. 08/26/2018. Patient has not had any more chest pain, planes of depression, fatigue, weight gain, skin or nail changes, hair changes, constipation, has history of thyroidectomy not taking any of her thyroid meds. TSH is very elevated. Has any nausea, vomiting, diarrhea or any urinary symptoms. Reason For Visit: CHEST PAIN, UNCONTROLLED HYERTENSION Physical Exam Vital Signs: Temp Pulse Resp BP Pulse Ox 97.4 F 42 L 12 139/80 H 95 08/26/18 11:54 08/26/18 11:54 08/26/18 11:54 08/26/18 11:54 08/26/18 11:54 Intake & Output 08/25/18 08/26/18 08/27/18 06:59 06:59 06:59 Intake Total 0 240 Output Total 750 150 Balance -750 90 Weight 126.9 kg General appearance: PRESENT: no acute distress, obese, well-developed, well- nourished Head exam: PRESENT: atraumatic, normocephalic Respiratory exam: PRESENT: clear to auscultation key. ABSENT: rales, rhonchi, wheezes Cardiovascular exam: PRESENT: RRR. ABSENT: diastolic murmur, rubs, systolic murmur GI/Abdominal exam: PRESENT: normal bowel sounds, soft. ABSENT: distended, guarding, mass, organolmegaly, rebound, tenderness Extremities exam: PRESENT: full ROM. ABSENT: calf tenderness, clubbing, pedal edema Neurological exam: PRESENT: alert, awake, oriented to person, oriented to place, oriented to time, oriented to situation, CN II-XII grossly intact. ABSENT: motor sensory deficit Results Laboratory Results: 08/26/18 04:16 08/26/18 04:16 08/25/18 08/25/18 08/25/18 15:05 15:05 15:05 WBC 5.7 RBC 4.54 Hgb 14.3 Hct 41.0 MCV 90 MCH 31.5 MCHC 35.0 RDW 15.3 H Plt Count 175 Seg Neutrophils % 59.4 Lymphocytes % 31.1 Monocytes % 5.3 Eosinophils % 4.1 Basophils % 0.1 Absolute Neutrophils 3.4 Absolute Lymphocytes 1.8 Absolute Monocytes 0.3 Absolute Eosinophils 0.2 Absolute Basophils 0.0 Sodium 145.1 H Potassium 3.8 Chloride 106 Carbon Dioxide 32 H Anion Gap 7 BUN 23 H Creatinine 1.44 H Est GFR ( Amer) 46 L Est GFR (Non-Af Amer) 38 L Glucose 89 Calcium 9.7 Magnesium Total Bilirubin 0.7 AST 33 ALT 21 Alkaline Phosphatase 49 Total Protein 8.0 Albumin 4.7 Triglycerides Cholesterol LDL Cholesterol Direct VLDL Cholesterol HDL Cholesterol TSH Free T4 Free T3 pg/mL Urine Color YELLOW Urine Appearance SLIGHTLY-CLOUDY Urine pH 6.0 Ur Specific [place] 1.021 Urine Protein NEGATIVE Urine Glucose (UA) NEGATIVE Urine Ketones NEGATIVE Urine Blood SMALL H Urine Nitrite NEGATIVE Ur Leukocyte Esterase NEGATIVE Urine WBC (Auto) 3 Urine RBC (Auto) 3 08/26/18 08/26/18 08/26/18 04:16 04:16 04:16 WBC 5.6 RBC 4.36 Hgb 13.7 Hct 39.1 MCV 90 MCH 31.4 MCHC 35.1 RDW 14.9 H Plt Count 150 Seg Neutrophils % Lymphocytes % Monocytes % Eosinophils % Basophils % Absolute Neutrophils Absolute Lymphocytes Absolute Monocytes Absolute Eosinophils Absolute Basophils Sodium 141.7 Potassium 3.5 L Chloride 107 Carbon Dioxide 27 Anion Gap 8 BUN 21 H Creatinine 1.02 Est GFR ( Amer) > 60 Est GFR (Non-Af Amer) 57 L Glucose 90 Calcium 9.3 Magnesium 2.1 Total Bilirubin AST ALT Alkaline Phosphatase Total Protein Albumin Triglycerides 149 Cholesterol 273.98 H LDL Cholesterol Direct 156 H VLDL Cholesterol 30.0 HDL Cholesterol 52 TSH 32.10 H Free T4 0.17 L Free T3 pg/mL 1.61 L Urine Color Urine Appearance Urine pH Ur Specific [place] Urine Protein Urine Glucose (UA) Urine Ketones Urine Blood Urine Nitrite Ur Leukocyte Esterase Urine WBC (Auto) Urine RBC (Auto) 08/25/18 08/25/18 08/25/18 15:05 15:05 22:00 Creatine Kinase 172 H 144 H CK-MB (CK-2) 2.98 Troponin I < 0.012 08/25/18 08/26/18 08/26/18 22:00 04:16 04:16 Creatine Kinase 125 CK-MB (CK-2) 2.10 2.03 Troponin I < 0.012 < 0.012 08/26/18 08/26/18 10:05 10:05 Creatine Kinase 104 CK-MB (CK-2) 1.86 Troponin I < 0.012 Impressions: Chest X-Ray 08/25/18 00:00 IMPRESSION: NO ACUTE RADIOGRAPHIC FINDING IN THE CHEST. Chest CT 08/25/18 21:23 IMPRESSION: 1. Normal CT of the chest 2. Previous cholecystectomy. Head CT 08/25/18 21:24 IMPRESSION: 1. No acute intracranial findings. Assessment and Plan - Diagnosis (1) Chest pain Qualifiers: Chest pain type: chest pain due to myocardial ischemia Ischemic chest pain type: unspecified angina pectoris type Qualified Code(s): I25.9 - Chronic ischemic heart disease, unspecified Is this a current diagnosis for this admission?: Yes Plan: Unlikely cardiac. Likely due to uncontrolled hypertension. Exercise intol erance could be explained due to severe controlled hypothyroidism. 10/06/2017. Normal Cardiolite stress test. Troponins <0.012 3, TSH 32.1, T4 0.17, T3 1.61. Continue telemetry, aspirin, high intensity statins, beta-blockers, PRN nitro, urine morphine, supplemental oxygen. Optimize BP, start on levothyroxine, counseled on quitting smoking. Patient was extensively counseled on the importance of medication adherence. Had a conversation with Dr. Humphrey over the phone stated that patient had a normal stress a year ago and she can follow-up with him as outpatient. (2) Hypothyroidism (acquired) Is this a current diagnosis for this admission?: Yes Plan: History of thyroid cancer status post radiation and thyroidectomy. No biopsy results available. Patient endorses weight gain, exercise intolerance, depression, skin nail and hair changes and severe constipation. Troponins <0.012 3, TSH 32.1, T4 0.17, T3 1.61. Started on levothyroxine 112 MCG daily, in the light of thyroid malignancy target of TSH should be below normal. Patient was extensively counseled on the importance of medication adherence and importance of following with PCP. (3) Hypertension Is this a current diagnosis for this admission?: Yes Plan: Uncontrolled. SBP on admission 170s to 1 to 90s. Improved, not optimized. Continue beta-blockers, calcium channel blockers. Monitor vitals, adjust dosage as needed. Outpatient PCP follow-up. (4) Hyperlipidemia Qualifiers: Hyperlipidemia type: unspecified Qualified Code(s): E78.5 - Hyperlipidemia, unspecified Is this a current diagnosis for this admission?: Yes Plan: ASCVD score of 16.8. Abnormal lipid panel could also be worsened due to severe hypothyroidism. High intensity statins, diet and exercise, monitor LFT. Outpatient PCP follow- up. (5) Acute renal failure Qualifiers: Acute renal failure type: unspecified Qualified Code(s): N17.9 - Acute kidney failure, unspecified Is this a current diagnosis for this admission?: Yes Plan: Likely due to uncontrolled hypertension. Nonoliguric. Non uremic. Optimize BP, monitor volume status and electrolytes, BMP tomorrow. If does not improve will consult nephrology. 10/04/2017. Renal ultrasound normal. (6) Tobacco abuse Is this a current diagnosis for this admission?: Yes Plan: Counseled on quitting. NicoDerm patch. (7) Constipation Qualifiers: Constipation type: slow transit constipation Qualified Code(s): K59.01 - Slow transit constipation Is this a current diagnosis for this admission?: Yes Plan: Most likely due to severe hypothyroidism. Treat underlying hypothyroidism. Bowel regimen. Encourage diet modification. (8) Obesity Qualifiers: Body mass index: BMI 40.0-44.9 Is this a current diagnosis for this admission?: Yes Plan: Likely worsened due to severe hypothyroidism. Diet lifestyle modification recommended. Treat underlying severe hypothyroidism.
[2018-08-26] MEDS ORDERED: BISACODYL 5 MG TABEC PO PRN (13:26)
[2018-08-26] MEDS: ATORVASTATIN CALCIUM 40 MG TABLET PO SCH (21:52)
[2018-08-26] MEDS: ZOLPIDEM TARTRATE 5 MG TABLET PO PRN (21:56)
[2018-08-26] MEDS ORDERED: ATORVASTATIN CALCIUM 20 MG TABLET PO SCH ×2 (22:00)
[2018-08-26] MEDS ORDERED: AMLODIPINE BESYLATE 10 MG TABLET PO SCH (22:00)
[2018-08-27] MEDS: HEPARIN SOD (PORCINE) 5,000 UNIT/ML 1 ML SYRINGE SUBCUT SCH ×3 (05:10→22:44)
[2018-08-27] MEDS: LEVOTHYROXINE SODIUM 0.112 MG TABLET PO SCH (05:18)
[2018-08-27 06:00] LABS: ABSOLUTE BASOPHILS # (AUTO) 0.1 10^3/uL (0.0-0.2); ABSOLUTE EOSINOPHILS # (AUTO) 0.2 10^3/uL (0.0-0.6); ABSOLUTE LYMPHOCYTES (AUTO) 1.9 10^3/uL (0.5-4.7); ABSOLUTE MONOCYTES (AUTO) 0.2 10^3/uL (0.1-1.4); ABSOLUTE NEUT (AUTO) 3.1 10^3/uL (1.7-8.2); BASOPHILS % (AUTO) 0.9 % (0-2); EOSINOPHILS % (AUTO) 3.6 % (0-6); HEMATOCRIT 40.6 % (36.0-47.0); HEMOGLOBIN 14.3 g/dL (12.0-15.5); LYMPHOCYTES % (AUTO) 35.4 % (13-45); MEAN CORPUSCULAR HEMOGLOBIN 31.6 pg (27.0-33.4); MEAN CORPUSCULAR HGB CONC 35.3 g/dL (32.0-36.0); MEAN CORPUSCULAR VOLUME 90 fl (80-97); MONOCYTES % (AUTO) 4.3 % (3-13); PLATELET COUNT 151 10^3/uL (150-450); RED BLOOD COUNT 4.54 10^6/uL (3.72-5.28); RED CELL DISTRIBUTION WIDTH 15.3 % (11.5-14.0); SEGMENTED NEUTROPHILS % (AUTO) 55.8 % (42-78); TOTAL CELLS COUNTED % (AUTO) 100 %; WHITE BLOOD COUNT 5.5 10^3/uL (4.0-10.5)
[2018-08-27 06:21] LABS: ALANINE AMINOTRANSFERASE 26 U/L (9-52); ALBUMIN 4.3 g/dL (3.5-5.0); ALKALINE PHOSPHATASE 50 U/L (38-126); ANION GAP 8 (5-19); ASPARTATE AMINO TRANSFERASE 32 U/L (14-36); BILIRUBIN,DIRECT 0.3 mg/dL (0.0-0.4); BILIRUBIN,TOTAL 0.9 mg/dL (0.2-1.3); BLOOD UREA NITROGEN 23 mg/dL (7-20); CALCIUM 9.7 mg/dL (8.4-10.2); CARBON DIOXIDE 26 mmol/L (22-30); CHLORIDE 107 mmol/L (98-107); GLUCOSE 82 mg/dL (75-110); POTASSIUM 4.2 mmol/L (3.6-5.0); SODIUM 140.6 mmol/L (137-145); TOTAL PROTEIN 7.2 g/dL (6.3-8.2)
[2018-08-27] MEDS: LISINOPRIL 10 MG TABLET PO SCH (09:36)
[2018-08-27] MEDS: AMLODIPINE BESYLATE 10 MG TABLET PO SCH (09:36)
[2018-08-27] MEDS: DOCUSATE SODIUM 100 MG CAPSULE PO SCH ×2 (09:36→17:18)
[2018-08-27] MEDS: ASPIRIN 81 MG TABLET, CHEWABLE PO SCH (09:37)
[2018-08-27] MEDS: FAMOTIDINE 20 MG TABLET PO SCH ×2 (09:37→22:44)
[2018-08-27] MEDS ORDERED: LISINOPRIL 10 MG TABLET PO SCH (10:00)
[2018-08-27] MEDS ORDERED: BUTALB/ACETAMINOPHEN/CAFFEINE 1 TAB EACH PO ONE (11:00)
--- NOTE | 2018-08-27 17:19 | PDOC PROGRESS REPORT ---
Subjective Progress Note for:: 08/27/18 Subjective:: ANMOL STEINBERG is a 53 year old female who presented to the emergency room with a 2-week history of chest pain. She admits to the gradual onset of intermittent episodes of constant, moderate to severe, crushing pressure-like substernal chest pain usually occurring on moderate exertion, but on 1 or 2 occasions occurring while resting in bed, without radiation over the course of the last 2 weeks. The frequency and intensity of the chest pain has been increasing over that period of time and the most redent episodes have been noted to last for a few minutes and slowly resolve spontaneously with rest. Her chest pain has been accompanied by moderate dyspnea, orthostasis with rapid standing from a sitting or recumbent position and daytime swelling of her hands and feet. She admits prior similar episodes occurring about a year ago when she had a Cardiolite str ess test done at this hospital that showed no evidence of operable coronary artery disease. She denies identification of any additional aggravating or ameliorating factors for her chest pain. In the emergency room she was found to have a normal troponin and an EKG which showed no evidence of acute cardiac ischemia or injury. She was noted to be severely hypertensive and admitted to not having taken her Norvasc for an extended period of time because she has been out of her medication. She was subsequently treated in the emergency room and eventually admitted to the [facility] for further evaluation and treatment. 08/26/2018. Patient has not had any more chest pain, planes of depression, fatigue, weight gain, skin or nail changes, hair changes, constipation, has history of thyroidectomy not taking any of her thyroid meds. TSH is very elevated. Has any nausea, vomiting, diarrhea or any urinary symptoms. 08/27/2018. No acute events overnight. Denies any fever, chills, nausea, vomiting, shortness of breath, chest pain, diarrhea. Of chronic migraine headache. Patient was planned to be sent home however she has been bradycardic since admission likely due to beta-blockers and severe hypothyroidism. Reason For Visit: CHEST PAIN, UNCONTROLLED HYERTENSION Physical Exam Vital Signs: Temp Pulse Resp BP Pulse Ox 97.7 F 60 16 137/82 H 100 08/27/18 15:12 08/27/18 15:18 08/27/18 15:12 08/27/18 15:12 08/27/18 15:12 Intake & Output 08/26/18 08/27/18 08/28/18 06:59 06:59 06:59 Intake Total 0 985 1277 Output Total 750 2050 Balance -750 -1065 1277 Weight 126.9 kg 127.4 kg General appearance: PRESENT: no acute distress, obese, well-developed, well- nourished Head exam: PRESENT: atraumatic, normocephalic Eye exam: PRESENT: conjunctiva pink, EOMI, PERRLA. ABSENT: scleral icterus Ear exam: PRESENT: normal external ear exam Mouth exam: PRESENT: moist, tongue midline Neck exam: ABSENT: carotid bruit, JVD, lymphadenopathy, thyromegaly Respiratory exam: PRESENT: clear to auscultation key. ABSENT: rales, rhonchi, wheezes Cardiovascular exam: PRESENT: RRR. ABSENT: diastolic murmur, rubs, systolic murmur Pulses: PRESENT: normal dorsalis pedis pul Vascular exam: PRESENT: normal capillary refill GI/Abdominal exam: PRESENT: normal bowel sounds, soft. ABSENT: distended, guard ing, mass, organolmegaly, rebound, tenderness Rectal exam: PRESENT: deferred Extremities exam: PRESENT: full ROM. ABSENT: calf tenderness, clubbing, pedal edema Neurological exam: PRESENT: alert, awake, oriented to person, oriented to place, oriented to time, oriented to situation, CN II-XII grossly intact. ABSENT: motor sensory deficit Psychiatric exam: PRESENT: appropriate affect, normal mood. ABSENT: homicidal ideation, suicidal ideation Skin exam: PRESENT: dry, intact, warm. ABSENT: cyanosis, rash Results Laboratory Results: 08/27/18 05:10 08/27/18 05:10 08/27/18 08/27/18 05:10 05:10 WBC 5.5 RBC 4.54 Hgb 14.3 Hct 40.6 MCV 90 MCH 31.6 MCHC 35.3 RDW 15.3 H Plt Count 151 Seg Neutrophils % 55.8 Lymphocytes % 35.4 Monocytes % 4.3 Eosinophils % 3.6 Basophils % 0.9 Absolute Neutrophils 3.1 Absolute Lymphocytes 1.9 Absolute Monocytes 0.2 Absolute Eosinophils 0.2 Absolute Basophils 0.1 Sodium 140.6 Potassium 4.2 Chloride 107 Carbon Dioxide 26 Anion Gap 8 BUN 23 H Creatinine 1.18 Est GFR ( Amer) 58 L Est GFR (Non-Af Amer) 48 L Glucose 82 Calcium 9.7 Magnesium 2.2 Total Bilirubin 0.9 AST 32 ALT 26 Alkaline Phosphatase 50 Total Protein 7.2 Albumin 4.3 08/25/18 08/25/18 08/25/18 15:05 15:05 22:00 Creatine Kinase 172 H 144 H CK-MB (CK-2) 2.98 Troponin I < 0.012 08/25/18 08/26/18 08/26/18 22:00 04:16 04:16 Creatine Kinase 125 CK-MB (CK-2) 2.10 2.03 Troponin I < 0.012 < 0.012 08/26/18 08/26/18 10:05 10:05 Creatine Kinase 104 CK-MB (CK-2) 1.86 Troponin I < 0.012 Impressions: Chest X-Ray 08/25/18 00:00 IMPRESSION: NO ACUTE RADIOGRAPHIC FINDING IN THE CHEST. Chest CT 08/25/18 21:23 IMPRESSION: 1. Normal CT of the chest 2. Previous cholecystectomy. Head CT 08/25/18 21:24 IMPRESSION: 1. No acute intracranial findings. Assessment and Plan - Diagnosis (1) Bradycardia Is this a current diagnosis for this admission?: Yes (2) Chest pain Qualifiers: Chest pain type: chest pain due to myocardial ischemia Ischemic chest pain type: unspecified angina pectoris type Qualified Code(s): I25.9 - Chronic ischemic heart disease, unspecified Is this a current diagnosis for this admission?: Yes Plan: Unlikely cardiac. Likely due to uncontrolled hypertension. Exercise intolerance could be explained due to severe controlled hypothyroidism. 10/06/2017. Normal Cardiolite stress test. Troponins <0.012 3, TSH 32.1, T4 0.17, T3 1.61. Continue telemetry, aspirin, high intensity statins, beta-blockers, PRN nitro, urine morphine, supplemental oxygen. Optimize BP, start on levothyroxine, counseled on quitting smoking. Patient was extensively counseled on the importance of medication adherence. Had a conversation with Dr. Humphrey over the phone stated that patient had a normal stress a year ago and she can follow-up with him as outpatient. (3) Hypothyroidism (acquired) Is this a current diagnosis for this admission?: Yes Plan: History of thyroid cancer status post radiation and thyroidectomy. No biopsy results available. Patient endorses weight gain, exercise intolerance, depression, skin nail and hair changes and severe constipation. Troponins <0.012 3, TSH 32.1, T4 0.17, T3 1.61. Started on levothyroxine 112 MCG daily, in the light of thyroid malignancy target of TSH should be below normal. Patient was extensively counseled on the importance of medication adherence and importance of following with PCP. (4) Hypertension Is this a current diagnosis for this admission?: Yes Plan: Uncontrolled. SBP on admission 170s to 1 to 90s. Improved, not optimized. Continue beta-blockers, calcium channel blockers. Monitor vitals, adjust dosage as needed. Outpatient PCP follow-up. (5) Hyperlipidemia Qualifiers: Hyperlipidemia type: unspecified Qualified Code(s): E78.5 - Hyperlipidemia, unspecified Is this a current diagnosis for this admission?: Yes Plan: ASCVD score of 16.8. Abnormal lipid panel could also be worsened due to severe hypothyroidism. High intensity statins, diet and exercise, monitor LFT. Outpatient PCP follow- up. (6) Acute renal failure Qualifiers: Acute renal failure type: unspecified Qualified Code(s): N17.9 - Acute kidney failure, unspecified Is this a current diagnosis for this admission?: Yes Plan: Likely due to uncontrolled hypertension. Nonoliguric. Non uremic. Optimize BP, monitor volume status and electrolytes, BMP tomorrow. If does not improve will consult nephrology. 10/04/2017. Renal ultrasound normal. (7) Tobacco abuse Is this a current diagnosis for this admission?: Yes Plan: Counseled on quitting. NicoDerm patch. (8) Constipation Qualifiers: Constipation type: slow transit constipation Qualified Code(s): K59.01 - Slow transit constipation Is this a current diagnosis for this admission?: Yes Plan: Most likely due to severe hypothyroidism. Treat underlying hypothyroidism. Bowel regimen. Encourage diet modification. (9) Obesity Qualifiers: Body mass index: BMI 40.0-44.9 Is this a current diagnosis for this admission?: Yes Plan: Likely worsened due to severe hypothyroidism. Diet lifestyle modification recommended. Treat underlying severe hypothyroidism.
[2018-08-27] MEDS ORDERED: METOPROLOL TARTRATE 25 MG TABLET PO SCH (22:00)
[2018-08-27] MEDS: ATORVASTATIN CALCIUM 40 MG TABLET PO SCH (22:44)
--- NOTE | 2018-08-28 00:24 | EKG REPORT ---
SEVERITY:- ABNORMAL ECG - SINUS RHYTHM INFERIOR INFARCT, AGE INDETERMINATE CONSIDER ANTERIOR INFARCT BORDERLINE PROLONGED QT INTERVAL : Confirmed by: Norah Cook 28-Aug-2018 00:23:13
[2018-08-28 03:53] LABS: HEMOGLOBIN 13.2 g/dL (12.0-15.5); MEAN CORPUSCULAR HEMOGLOBIN 31.1 pg (27.0-33.4); MEAN CORPUSCULAR HGB CONC 34.6 g/dL (32.0-36.0); MEAN CORPUSCULAR VOLUME 90 fl (80-97); PLATELET COUNT 144 10^3/uL (150-450); RED BLOOD COUNT 4.23 10^6/uL (3.72-5.28); RED CELL DISTRIBUTION WIDTH 15.2 % (11.5-14.0); WHITE BLOOD COUNT 5.9 10^3/uL (4.0-10.5)
[2018-08-28 04:14] LABS: ANION GAP 10 (5-19); BLOOD UREA NITROGEN 23 mg/dL (7-20); CALCIUM 9.2 mg/dL (8.4-10.2); CARBON DIOXIDE 24 mmol/L (22-30); CHLORIDE 106 mmol/L (98-107); GLUCOSE 86 mg/dL (75-110); POTASSIUM 3.7 mmol/L (3.6-5.0); SODIUM 139.5 mmol/L (137-145)
[2018-08-28] MEDS: LEVOTHYROXINE SODIUM 0.112 MG TABLET PO SCH (06:11)
[2018-08-28] MEDS: HEPARIN SOD (PORCINE) 5,000 UNIT/ML 1 ML SYRINGE SUBCUT SCH (06:12)
[2018-08-28] MEDS: AMLODIPINE BESYLATE 10 MG TABLET PO SCH (09:48)
[2018-08-28] MEDS: LISINOPRIL 10 MG TABLET PO SCH (09:48)
[2018-08-28] MEDS: DOCUSATE SODIUM 100 MG CAPSULE PO SCH (09:48)
[2018-08-28] MEDS: ASPIRIN 81 MG TABLET, CHEWABLE PO SCH (09:48)
[2018-08-28] MEDS: FAMOTIDINE 20 MG TABLET PO SCH (09:48)
[2018-08-28 12:30] VITALS: BP 140/82
--- NOTE | 2018-09-06 11:22 | PDOC DISCHARGE SUMMARY ---
General - Admit/Disc Date/PCP Admission Date/Primary Care Provider: 08/25/18 21:07 Discharge Date: 09/27/18 - Discharge Diagnosis (1) Bradycardia Is this a current diagnosis for this admission?: Yes (2) Chest pain Is this a current diagnosis for this admission?: Yes (3) Hypothyroidism (acquired) Is this a current diagnosis for this admission?: Yes (4) Hypertension Is this a current diagnosis for this admission?: Yes (5) Hyperlipidemia Is this a current diagnosis for this admission?: Yes (6) Acute renal failure Is this a current diagnosis for this admission?: Yes (7) Tobacco abuse Is this a current diagnosis for this admission?: Yes (8) Constipation Is this a current diagnosis for this admission?: Yes (9) Obesity Is this a current diagnosis for this admission?: Yes - Additional Information Resuscitation Status: Full Code Discharge Diet: Cardiac Discharge Activity: Activity As Tolerated, Balance Activity w/Rest Prescriptions: Amlodipine Besylate [Norvasc 10 mg Tablet] 10 mg PO DAILY 30 Days #30 tablet Aspirin [Aspirin 81 mg Chewable Tablet] 81 mg PO DAILY 30 Days #30 tab.chew Atorvastatin Calcium [Lipitor 40 mg Tablet] 40 mg PO QHS 30 Days #30 tablet Bisacodyl [Dulcolax 5 mg Tablet] 5 mg PO DAILYP PRN 7 Days #14 tabec PRN Reason: Levothyroxine Sodium 137 mcg PO QAM 42 Days #42 tablet Lisinopril [Prinivil 10 mg Tablet] 10 mg PO DAILY 30 Days #30 tablet Home Medications: Amlodipine Besylate [Norvasc 10 mg Tablet] 10 mg PO DAILY 30 Days #30 tablet 08/27/18 Aspirin [Aspirin 81 mg Chewable Tablet] 81 mg PO DAILY 30 Days #30 tab.chew 08/27/18 Atorvastatin Calcium [Lipitor 40 mg Tablet] 40 mg PO QHS 30 Days #30 tablet 08/27/18 Bisacodyl [Dulcolax 5 mg Tablet] 5 mg PO DAILYP PRN 7 Days #14 tabec 08/27/18 Levothyroxine Sodium 137 mcg PO QAM 42 Days #42 tablet 08/27/18 Lisinopril [Prinivil 10 mg Tablet] 10 mg PO DAILY 30 Days #30 tablet 08/27/18 History of Present Illness History of Present Illness: ANMOL STEINBERG is a 53 year old female Hospital Course Hospital Course: (1) Bradycardia asymptomatic. Likely due to sever hypothyroidism. Patient was ambulated with no symptoms and her heart rate increased appropriately to 118. (2) Chest pain Unlikely cardiac. Likely due to uncontrolled hypertension. Exercise intolerance could be explained due to severe controlled hypothyroidism. 10/06/2017. Normal Cardiolite stress test. Troponins <0.012 3, TSH 32.1, T4 0.17, T3 1.61. Continue telemetry, aspirin, high intensity statins, beta-blockers, PRN nitro, urine morphine, supplemental oxygen. Optimize BP, start on levothyroxine, counseled on quitting smoking. Patient was extensively counseled on the importance of medication adherence. Had a conversation with Dr. Humphrey over the phone stated that patient had a normal stress a year ago and she can follow-up with him as outpatient. An appointment was made for her to see Dr. Humphrey on 08/30/2018 (3) Hypothyroidism (acquired) History of thyroid cancer status post radiation and thyroidectomy. No biopsy results available. Patient endorses weight gain, exercise intolerance, depression, skin nail and hair changes and severe constipation. Troponins <0.012 3, TSH 32.1, T4 0.17, T3 1.61. Started on levothyroxine 112 MCG daily, in the light of thyroid malignancy targ et of TSH should be below normal. Patient was extensively counseled on the importance of medication adherence and importance of following with PCP. An appointment wad made for her to follow up at the [facility] on 09/12/2018. (4) Hypertension Omptimized. SBP on admission 170s to 190s. Was initially started on BB but has had to be switched to lisinopril and CCB due to bradycardia. SBP 120-140 at the day of discharge. Outpatient PCP follow-up. (5) Hyperlipidemia ASCVD score of 16.8. Abnormal lipid panel could also be worsened due to severe hypothyroidism. High intensity statins, diet and exercise, monitor LFT. Outpatient PCP follow- up. (6) Acute renal failure [place]. Likely due to uncontrolled hypertension. Nonoliguric. Non uremic. 10/04/2017. Renal ultrasound normal. (7) Tobacco abuse Counseled on quitting. NicoDerm patch. (8) Constipation Most likely due to severe hypothyroidism. Treat underlying hypothyroidism. Bowel regimen. Encourage diet modification. (9) Obesity Likely worsened due to severe hypothyroidism. Diet lifestyle modification recommended. Treat underlying severe hypothyroidism. Physical Exam Vital Signs: Temp Pulse Resp BP Pulse Ox 97.5 F 43 L 16 140/82 H 99 08/28/18 12:26 08/28/18 12:26 08/28/18 12:26 08/28/18 12:26 08/28/18 12:26 General appearance: PRESENT: obese Head exam: PRESENT: atraumatic, normocephalic Neck exam: ABSENT: carotid bruit, JVD, lymphadenopathy, thyromegaly Respiratory exam: PRESENT: clear to auscultation key. ABSENT: rales, rhonchi, wheezes Cardiovascular exam: PRESENT: RRR. ABSENT: diastolic murmur, rubs, systolic murmur Extremities exam: PRESENT: full ROM. ABSENT: calf tenderness, clubbing, pedal edema Neurological exam: PRESENT: alert, awake, oriented to person, oriented to place, oriented to time, oriented to situation, CN II-XII grossly intact. ABSENT: motor sensory deficit Results Laboratory Results: 08/28/18 03:35 08/28/18 03:35 08/25/18 08/25/18 08/25/18 15:05 15:05 22:00 Creatine Kinase 172 H 144 H CK-MB (CK-2) 2.98 Troponin I < 0.012 08/25/18 08/26/18 08/26/18 22:00 04:16 04:16 Creatine Kinase 125 CK-MB (CK-2) 2.10 2.03 Troponin I < 0.012 < 0.012 08/26/18 08/26/18 10:05 10:05 Creatine Kinase 104 CK-MB (CK-2) 1.86 Troponin I < 0.012 Impressions: Chest X-Ray 08/25/18 00:00 IMPRESSION: NO ACUTE RADIOGRAPHIC FINDING IN THE CHEST. Chest CT 08/25/18 21:23 IMPRESSION: 1. Normal CT of the chest 2. Previous cholecystectomy. Head CT 08/25/18 21:24 IMPRESSION: 1. No acute intracranial findings. Qualifiers - * PATIENT BEING DISCHARGED WITH ANY OF THE FOLLOWING DIAGNOSIS: No Acute Heart Failure - Is this a Heart Failure Patient?: No
== END 2018-08-28 12:50 | disposition home or self-care (01) | DRG 644 ==
LOC: ER 13:55 → EH 21:07 → 4W 08-26 01:20 → 3S 08-27 08:07 → 3W 08-27 18:16
PROVIDERS: ADMIT Emergency Medicine; ATTEND Emergency Medicine
DX: E89.0 Postprocedural hypothyroidism (principal); N17.9 Acute kidney failure, unspecified; Z68.41 Body mass index [BMI] 40.0-44.9, adult; R00.1 Bradycardia, unspecified; I10 Essential (primary) hypertension; E78.5 Hyperlipidemia, unspecified; G43.909 Migraine, unspecified, not intractable, without status migrainosus; E66.9 Obesity, unspecified; I25.9 Chronic ischemic heart disease, unspecified; K59.01 Slow transit constipation; Y83.8 Other surgical procedures as the cause of abnormal reaction of the patient, or of later complication, without mention of misadventure at the time of the procedure; R07.89 Other chest pain; Z85.850 Personal history of malignant neoplasm of thyroid; Z87.891 Personal history of nicotine dependence; Z91.14 Patient's other noncompliance with medication regimen; Z92.3 Personal history of irradiation; Z88.6 Allergy status to analgesic agent; Z82.49 Family history of ischemic heart disease and other diseases of the circulatory system
CPT/HCPCS: 36415; 70450; 71045; 71260; 80048; 80053; 80061; 81001; 82550; 82553; 83735; 84439; 84443; 84481; 84484; 85025; 85027; 85610; 93005; 93010; 96374; 99285; J0360; J1200; J1644; J1652; J2270; J3490; S0119

== ENCOUNTER 2019-04-05 16:34 | Emergency (ER) | payer SELFPAY ==
--- NOTE | 2019-04-05 17:56 | ER Document Report ---
ED Medical Screen (RME) - General Chief Complaint: Numbness Stated Complaint: LEG BURNING AND NUMBNESS Time Seen by Provider: 04/05/19 17:51 Mode of Arrival: Wheelchair Information source: Patient Notes: 53-year-old female presented to ED for numbness in bilateral legs that caused her legs to give out from under her and her fall. She states she has been told that she had nerve damage in her legs that caused her legs to burn and they burn all the time but she has never had numbness were both legs gave out from under her. She states she constantly has burning and she does at this time but her legs are not numb at this time but she does want to find out why both of her legs gave out from under her today. I have greeted and performed a rapid initial assessment of this patient. A co mprehensive ED assessment and evaluation of the patient, analysis of test results and completion of medical decision making process will be conducted by an additional ED providers. TRAVEL OUTSIDE OF THE [place] IN LAST 30 DAYS: No - Related Data Allergies/Adverse Reactions: tramadol Allergy (Verified 08/25/18 14:01) Past Medical History - General Information source: Patient - Social History Cigarette use (# per day): Yes - Former quit 5 months ago Frequency of alcohol use: None Drug Abuse: None Lives with: Family Family history: Reviewed & Not Pertinent - Past Medical History Cardiac Medical History: Reports: Hx Hypercholesterolemia, Hx Hypertension Denies: Hx Atrial Fibrillation, Hx Congestive Heart Failure, Hx Coronary Artery Disease, Hx DVT, Hx Heart Attack, Hx Pulmonary Embolism Pulmonary Medical History: Reports: Hx Respiratory Failure Denies: Hx Asthma, Hx COPD Neurological Medical History: Reports: Hx Migraine. Denies: Hx Seizures Endocrine Medical History: Reports: Hx Hypothyroidism - Had hyper parathyroid had XRT now has hypothyroidism. Denies: Hx Diabetes Mellitus Type 1, Hx Diabetes Mellitus Type 2, Hx Hyperthyroidism Renal/ Medical History: Denies: Hx Peritoneal Dialysis GI Medical History: Reports: Hx Diverticulitis, Hx Colonoscopy - Polypectomy. 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
--- NOTE | 2019-04-05 18:38 | RADIOLOGY REPORT (SQ) ---
EXAM DESCRIPTION: KNEE RIGHT 4 VIEWS COMPLETED DATE/TIME: 04/05/2019 6:26 pm REASON FOR STUDY: Pain right knee after fall COMPARISON: None. NUMBER OF VIEWS: Four views. TECHNIQUE: AP, lateral, and both oblique radiographic images acquired of the right knee. LIMITATIONS: None. FINDINGS: MINERALIZATION: Normal. BONES: No acute fracture or dislocation. Medial osteophytes. No worrisome bone lesions. JOINT: No effusion. SOFT TISSUES: No soft tissue swelling. No radio-opaque foreign body. OTHER: No other significant finding. IMPRESSION: DEGENERATIVE CHANGES. NO RADIOGRAPHIC EVIDENCE OF ACUTE INJURY. TECHNICAL DOCUMENTATION: JOB ID: [id number] [employer]- All Rights Reserved Reading location - IP/workstation name: [email or web address]
--- NOTE | 2019-04-05 18:39 | RADIOLOGY REPORT (SQ) ---
EXAM DESCRIPTION: L SPINE WHOLE COMPLETED DATE/TIME: 04/05/2019 6:26 pm REASON FOR STUDY: Numbness to the both legs causing her to fall COMPARISON: None. NUMBER OF VIEWS: Five views including obliques. TECHNIQUE: AP, lateral, oblique, and sacral radiographic images acquired of the lumbar spine. LIMITATIONS: None. FINDINGS: MINERALIZATION: Normal. SEGMENTATION: Normal. No transitional anatomy. ALIGNMENT: Normal. VERTEBRAE: Maintained height. No fracture or worrisome bone lesion. DISCS: Preserved height. No significant osteophytes or end plate irregularity. POSTERIOR ELEMENTS: Pedicles and facets are intact. No pars defect or posterior arch defects. HARDWARE: None in the spine. PARASPINAL SOFT TISSUES: Normal. PELVIS: Intact as visualized. No fractures or worrisome bone lesions. SI joints intact. OTHER: No other significant finding. IMPRESSION: NORMAL 5 VIEW LUMBAR SPINE. TECHNICAL DOCUMENTATION: JOB ID: [id number] [employer]- All Rights Reserved Reading location - IP/workstation name: [email or web address]
[2019-04-05 19:19] LABS: APPEARANCE,URINE CLEAR; BILIRUBIN,URINE NEGATIVE (NEGATIVE); COLOR,URINE YELLOW; GLUCOSE, URINE NEGATIVE (NEGATIVE); KETONES,URINE NEGATIVE (NEGATIVE); PROTEIN,URINE NEGATIVE (NEGATIVE); URINE SPECIFIC GRAVITY 1.011; UROBILINOGEN,URINE NEGATIVE mg/dL (<2.0)
[2019-04-05 22:25] VITALS: BP 172/109
--- NOTE | 2019-04-05 23:29 | ER Document Report ---
ED General - General Chief Complaint: Fall Stated Complaint: LEG BURNING AND NUMBNESS Time Seen by Provider: 04/05/19 17:51 Primary Care Provider: JACKELYN RIVERA MD [ACTIVE STAFF] - Follow up as needed Mode of Arrival: Wheelchair TRAVEL OUTSIDE OF THE [place] IN LAST 30 DAYS: No - HPI Onset: This afternoon Onset/Duration: Sudden Quality of pain: Burning - in both legs which is chronic, Throbbing - in right knee Severity: Moderate Pain Level: 2 Associated symptoms: None Exacerbated by: Other - weight bearing Relieved by: Remaining still Similar symptoms previously: Yes - patient has had the burning sensation in the past Recently seen / treated by doctor: No Notes: 53 year old female with a history of HTN, HLD, Hypothyroidism, likely Neuropathy of her Legs here for chronic burning pain in both legs and new acute pain in her right knee which started after her legs gave out today and she fell and landed on her right knee. The patient is new to the area and has no PCP. The patient says she was walking and her knees got weak and gave out. The patient denies hitting her head or neck when she fell. - Related Data Allergies/Adverse Reactions: tramadol Allergy (Verified 04/05/19 17:58) Past Medical History - General Information source: Patient - Social History Smoking Status: Former Smoker Cigarette use (# per day): Yes - Former quit 5 months ago Frequency of alcohol use: None Drug Abuse: None Lives with: Family Family History: CAD, Hypertension, Other - Pulmonary embolus Patient has suicidal ideation: No Patient has homicidal ideation: No - Past Medical History Cardiac Medical History: Reports: Hx Hypercholesterolemia, Hx Hypertension Denies: Hx Atrial Fibrillation, Hx Congestive Heart Failure, Hx Coronary Artery Disease, Hx DVT, Hx Heart Attack, Hx Pulmonary Embolism Pulmonary Medical History: Reports: Hx Respiratory Failure Denies: Hx Asthma, Hx COPD Neurological Medical History: Reports: Hx Migraine. Denies: Hx Seizures Endocrine Medical History: Reports: Hx Hypothyroidism - Had hyper parathyroid had XRT now has hypothyroidism. Denies: Hx Diabetes Mellitus Type 1, Hx Diabetes Mellitus Type 2, Hx Hyperthyroidism Renal/ Medical History: Denies: Hx Peritoneal Dialysis GI Medical History: Reports: Hx Diverticulitis, Hx Colonoscopy - Polypectomy. Denies: Hx Cirrhosis, Hx Crohn's Disease, Hx Hepatitis, Hx Ulcerative Colitis Musculoskeletal Medical History: Reports Hx Musculoskeletal Deformity - 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, Reports Hx Musculoskeletal Trauma Skin Medical History: Reports None Psychiatric Medical History: Reports: Hx Depression Traumatic Medical History: Reports: None Infectious Medical History: Reports: None. Denies: Hx Hepatitis Past Surgical History: Reports: Hx Section - x3, Hx Cholecystectomy, Hx Hysterectomy - Immunizations Hx Diphtheria, Pertussis, Tetanus Vaccination: No Review of Systems - Review of Systems Constitutional: No symptoms reported EENT: No symptoms reported Cardiovascular: No symptoms reported Respiratory: No symptoms reported Gastrointestinal: No symptoms reported Genitourinary: No symptoms reported Female Genitourinary: No symptoms reported Musculoskeletal: Other - right knee pain, burning sensation in both legs Skin: Other - hives Neurological/Psychological: No symptoms reported -: Yes All other systems reviewed and negative Physical Exam - Vital signs Vitals: Temp Pulse Resp BP Pulse Ox 98.5 F 76 20 192/116 H 96 04/05/19 17:27 04/05/19 17:27 04/05/19 17:27 04/05/19 17:27 04/05/19 17:27 - Notes Notes: GENERAL: Well-appearing, well-nourished and in no acute distress. HEAD: Atraumatic, normocephalic. EYES: Pupils equal round and reactive to light, extraocular movements intact, sclera anicteric, conjunctiva are normal. ENT: Nares patent, oropharynx clear without exudates. Moist mucous membranes. NECK: Normal range of motion, supple without lymphadenopathy or JVD. LUNGS: Breath sounds clear to auscultation bilaterally and equal. No wheezes rales or rhonchi. HEART: Regular rate and rhythm without murmurs, rubs or gallops. ABDOMEN: Soft, nontender, normoactive bowel sounds. No guarding, no rebound. No masses appreciated. EXTREMITIES: Normal range of motion, no pitting or edema. No clubbing or cyanosis. Mild tenderness on lateral aspect of right knee. NEUROLOGICAL: Cranial nerves II through XII grossly intact. Normal speech, normal gait. PSYCH: Normal mood, normal affect. SKIN: Warm, Dry, normal turgor, no rashes or lesions noted. Moderate diffuse hives on abdomen and back. Course - Re-evaluation Re-evalutation: 04/05/19 23:59 The patient is here for right knee pain which started after her legs gave way and she fell to the ground hitting her right knee. The patient has no fractures on xray of her knee. Patient also has chronic pain and a chronic burning sensation in her legs which she says she has been told is due to neuropathy. Patient prescribed Gabapentin to try for possible Neuropathy. Patient also has hives which seem to come and go. Will prescribed Prednisone for several days and have her use H1 and H2 blockers but she was told she should follow up with an [facility] [employer]. - Vital Signs Vital signs: Temp Pulse Resp BP Pulse Ox 98.3 F 69 20 172/109 H 99 04/05/19 21:50 04/05/19 21:50 04/05/19 21:50 04/05/19 21:50 04/05/19 21:50 - Laboratory Laboratory results interpreted by me: 04/05/19 18:30 Urine Blood SMALL H - Diagnostic Test Radiology reviewed: Image reviewed, Reports reviewed Discharge - Discharge Clinical Impression: Neuropathy Knee contusion Qualifiers: Encounter type: initial encounter Laterality: right Qualified Code(s): S80.01XA - Contusion of right knee, initial encounter Condition: Stable Disposition: HOME, SELF-CARE Instructions: Contusion ([facility]), Neuropathy ([facility]) Additional Instructions: Use Tylenol and Motrin for your knee pain. Try using Gabapentin for the burning sensation in your legs. Follow up with one of the primary care doctors listed in your paperwork. Prescriptions: Prednisone [Deltasone 20 mg Tablet] 2 tab PO DAILY 5 Days #10 tablet Gabapentin [Neurontin 300 mg Capsule] 300 mg PO Q8 #21 cap Referrals: JACKELYN RIVERA MD [ACTIVE STAFF] - Follow up as needed
== END 2019-04-06 00:38 | disposition home or self-care (01) ==
LOC: ER 16:34
DX: S80.01XA Contusion of right knee, initial encounter (principal); W19.XXXA Unspecified fall, initial encounter; G62.9 Polyneuropathy, unspecified; L50.9 Urticaria, unspecified; G89.29 Other chronic pain; I10 Essential (primary) hypertension; Z88.6 Allergy status to analgesic agent; Z87.891 Personal history of nicotine dependence
CPT/HCPCS: 72110; 81001

== ENCOUNTER 2019-05-02 14:47 | Observation (INO) | payer SELFPAY ==
[2019-05-02] MEDS ORDERED: ASPIRIN 81 MG TABLET, CHEWABLE PO ONE (15:18)
--- NOTE | 2019-05-02 15:20 | ER Document Report ---
ED Medical Screen (RME) - General Chief Complaint: Chest Pain Stated Complaint: CHEST PAIN/CONGESTION/COUGH Time Seen by Provider: 05/02/19 15:13 Notes: 53-year-old female with history of hypertension, hyperlipidemia, smoker who quit 6 months ago presents with left-sided chest pain that radiates down her left arm, associated dyspnea. Family history is positive for a father who had an NC in his 60s, multiple brothers with MIs earliest in their 40s. Lungs clear to auscultation bilaterally. Regular rate and rhythm. Patient is also been complaining of congestion that is been going on for the past week and a half. Patient also also complaining of flank pain and thinks she may have a kidney infection. I have greeted and performed a rapid initial assessment of this patient. A comprehensive ED assessment and evaluation of the patient, analysis of test results and completion of the medical decision making process with be conducted by additional ED providers. TRAVEL OUTSIDE OF THE [place] IN LAST 30 DAYS: No - Related Data Allergies/Adverse Reactions: tramadol Allergy (Verified 05/02/19 15:16) Past Medical History - Social History Chew tobacco use (# tins/day): No Frequency of alcohol use: None Drug Abuse: None Family history: Reviewed & Not Pertinent - Past Medical History Cardiac Medical History: Reports: Hx Hypercholesterolemia, Hx Hypertension Denies: Hx Atrial Fibrillation, Hx Congestive Heart Failure, Hx Coronary Artery Disease, Hx DVT, Hx Heart Attack, Hx Pulmonary Embolism Pulmonary Medical History: Reports: Hx Respiratory Failure Denies: Hx Asthma, Hx COPD Neurological Medical History: Reports: Hx Migraine. Denies: Hx Seizures Endocrine Medical History: Reports: Hx Hypothyroidism - Had hyper parathyroid had XRT now has hypothyroidism. Denies: Hx Diabetes Mellitus Type 1, Hx Diabetes Mellitus Type 2, Hx Hyperthyroidism Renal/ Medical History: Denies: Hx Peritoneal Dialysis GI Medical History: Reports: Hx Diverticulitis, Hx Colonoscopy - Polypectomy. Denies: Hx Cirrhosis, Hx Crohn's Disease, Hx Hepatitis, Hx Ulcerative Colitis Musculoskeltal Medical History: Reports Hx Musculoskeletal Deformity - 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, Reports Hx Musculoskeletal Trauma Psychiatric Medical History: Reports: Hx Depression Infectious Medical History: Denies: Hx Hepatitis Past Surgical History: Reports: Hx Section - x3, Hx Cholecystectomy, Hx Hysterectomy - Immunizations Hx Diphtheria, Pertussis, Tetanus Vaccination: No Physical Exam - Vital signs Vitals: Temp Pulse Resp BP Pulse Ox 98.1 F 78 18 199/117 H 95 05/02/19 14:59 05/02/19 14:59 05/02/19 14:59 05/02/19 14:59 05/02/19 14:59 Course - Vital Signs Vital signs: Temp Pulse Resp BP Pulse Ox 98.1 F 78 18 199/117 H 95 05/02/19 14:59 05/02/19 14:59 05/02/19 14:59 05/02/19 14:59 05/02/19 14:59
[2019-05-02] MEDS ORDERED: AMLODIPINE BESYLATE 10 MG TABLET PO ONE ×2 (15:21→17:43)
--- NOTE | 2019-05-02 15:53 | RADIOLOGY REPORT (SQ) ---
EXAM DESCRIPTION: CHEST 2 VIEWS COMPLETED DATE/TIME: 05/02/2019 3:42 pm REASON FOR STUDY: chest pain COMPARISON: 08/25/2018. EXAM PARAMETERS: NUMBER OF VIEWS: two views TECHNIQUE: Digital Frontal and Lateral radiographic views of the chest acquired. RADIATION DOSE: NA LIMITATIONS: none FINDINGS: LUNGS AND PLEURA: No opacities, masses or pneumothorax. No pleural effusion. MEDIASTINUM AND HILAR STRUCTURES: No masses or contour abnormalities. HEART AND VASCULAR STRUCTURES: Heart normal size. No evidence for failure. BONES: No acute findings. HARDWARE: None in the chest. OTHER: No other significant finding. IMPRESSION: NO ACUTE RADIOGRAPHIC FINDING IN THE CHEST. TECHNICAL DOCUMENTATION: JOB ID: [id number] 2010 [employer]- All Rights Reserved Reading location - IP/workstation name: [email or web address]
[2019-05-02 15:58] LABS: ABSOLUTE LYMPHOCYTES (AUTO) 1.2 10^3/uL (0.5-4.7); ABSOLUTE MONOCYTES (AUTO) 0.2 10^3/uL (0.1-1.4); ABSOLUTE NEUT (AUTO) 4.1 10^3/uL (1.7-8.2); BASOPHILS % (AUTO) 0.6 % (0-2); EOSINOPHILS % (AUTO) 0.1 % (0-6); HEMATOCRIT 42.6 % (36.0-47.0); HEMOGLOBIN 14.7 g/dL (12.0-15.5); LYMPHOCYTES % (AUTO) 21.9 % (13-45); MEAN CORPUSCULAR HEMOGLOBIN 30.6 pg (27.0-33.4); MEAN CORPUSCULAR HGB CONC 34.6 g/dL (32.0-36.0); MEAN CORPUSCULAR VOLUME 88 fl (80-97); PLATELET COUNT 176 10^3/uL (150-450); RED BLOOD COUNT 4.82 10^6/uL (3.72-5.28); RED CELL DISTRIBUTION WIDTH 14.7 % (11.5-14.0); SEGMENTED NEUTROPHILS % (AUTO) 73.4 % (42-78); TOTAL CELLS COUNTED % (AUTO) 100 %; WHITE BLOOD COUNT 5.6 10^3/uL (4.0-10.5)
[2019-05-02 16:02] LABS: APPEARANCE,URINE CLEAR; BILIRUBIN,URINE NEGATIVE (NEGATIVE); COLOR,URINE YELLOW; GLUCOSE, URINE NEGATIVE (NEGATIVE); KETONES,URINE NEGATIVE (NEGATIVE); PROTEIN,URINE 30 mg/dL (NEGATIVE); URINE SPECIFIC GRAVITY 1.018; UROBILINOGEN,URINE NEGATIVE mg/dL (<2.0)
[2019-05-02 16:15] LABS: ALBUMIN 4.5 g/dL (3.5-5.0); ALKALINE PHOSPHATASE 64 U/L (38-126); ANION GAP 9 (5-19); ASPARTATE AMINO TRANSFERASE 39 U/L (14-36); BILIRUBIN,DIRECT 0.3 mg/dL (0.0-0.4); BILIRUBIN,TOTAL 0.5 mg/dL (0.2-1.3); BLOOD UREA NITROGEN 14 mg/dL (7-20); CALCIUM 9.5 mg/dL (8.4-10.2); CARBON DIOXIDE 31 mmol/L (22-30); CHLORIDE 104 mmol/L (98-107); GLUCOSE 124 mg/dL (75-110); POTASSIUM 4.3 mmol/L (3.6-5.0)
[2019-05-02] MEDS ORDERED: NITROGLYCERIN 0.4 MG/TAB 25 TAB/BOTTLE SL PRN ×2 (17:55→18:58)
--- NOTE | 2019-05-02 17:58 | ER Document Report ---
ED Cardiac - General Chief Complaint: Chest Pain Stated Complaint: CHEST PAIN/CONGESTION/COUGH Time Seen by Provider: 05/02/19 15:13 Notes: HPI: 53-year-old female with past medical history as recorded including elevated blood pressure who states she has not taken her blood pressure medications in 3 weeks secondary to a lack of a primary care physician and developed some chest discomfort this morning. She states it radiates to her left shoulder. She states nausea and vomiting x1. She denies any diaphoresis. She denies any calf pain, leg swelling, fevers, shortness of breath. No aggravating relieving factors otherwise. Patient states she is recovering from an upper respiratory tract infection last week with some runny nose, congestion, and mild cough. No fevers for the last 5 days. ROS: See HPI All other review of systems reviewed and otherwise negative Reviewed vital signs and nursing note as charted by RN. PHYSICAL EXAM: CONSTITUTIONAL: Alert and oriented and responds appropriately to questions. Well-appearing; well-nourished HEAD: Normocephalic; atraumatic EYES: PERRL; Conjunctivae clear, sclerae non-icteric ENT: Normal nose; minimal bilateral nonpurulent nasal rhinorrhea; moist mucous membranes; pharynx without lesions noted NECK: Supple without meningismus; non-tender; no cervical lymphadenopathy, no masses CARD: Regular rate and rhythm; no murmurs; symmetric distal pulses RESP: Normal chest excursion without splinting or tachypnea; breath sounds clear and equal bilaterally; no wheezes, no rhonchi, no rales ABD/GI: Normal bowel sounds; non-distended; soft, non-tender; no palpable organomegaly or masses BACK: The back appears normal and is non-tender to palpation EXT: Normal ROM in all joints; non-tender to palpation; no edema SKIN: No acute lesions noted NEURO: CN 2-12 intact; 5/5 bilateral upper and lower extremity strength with sensation intact to light touch PSYCH: The patient's mood and manner are appropriate. Grooming and personal hygiene are appropriate. TRAVEL OUTSIDE OF THE [place] IN LAST 30 DAYS: No - Related Data Allergies/Adverse Reactions: tramadol Allergy (Verified 05/02/19 15:16) Past Medical History - Social History Smoking Status: Former Smoker Chew tobacco use (# tins/day): No Frequency of alcohol use: None Drug Abuse: None Family History: CAD, Hypertension, Other - Pulmonary embolus Patient has suicidal ideation: No Patient has homicidal ideation: No - Past Medical History Cardiac Medical History: Reports: Hx Hypercholesterolemia, Hx Hypertension Denies: Hx Atrial Fibrillation, Hx Congestive Heart Failure, Hx Coronary Artery Disease, Hx DVT, Hx Heart Attack, Hx Pulmonary Embolism Pulmonary Medical History: Reports: Hx Respiratory Failure Denies: Hx Asthma, Hx COPD Neurological Medical History: Reports: Hx Migraine. Denies: Hx Seizures Endocrine Medical History: Reports: Hx Hypothyroidism - Had hyper parathyroid had XRT now has hypothyroidism. Denies: Hx Diabetes Mellitus Type 1, Hx Diabetes Mellitus Type 2, Hx Hyperthyroidism Renal/ Medical History: Denies: Hx Peritoneal Dialysis GI Medical History: Reports: Hx Diverticulitis, Hx Colonoscopy - Polypectomy. Denies: Hx Cirrhosis, Hx Crohn's Disease, Hx Hepatitis, Hx Ulcerative Colitis Musculoskeletal Medical History: Reports Hx Musculoskeletal Deformity - 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, Reports Hx Musculoskeletal Trauma Psychiatric Medical History: Reports: Hx Depression Infectious Medical History: Denies: Hx Hepatitis Past Surgical History: Reports: Hx Section - x3, Hx Cholecystectomy, Hx Hysterectomy - Immunizations Hx Diphtheria, Pertussis, Tetanus Vaccination: No Physical Exam - Vital signs Vitals: Temp Pulse Resp BP Pulse Ox 98.1 F 78 18 199/117 H 95 05/02/19 14:59 05/02/19 14:59 05/02/19 14:59 05/02/19 14:59 05/02/19 14:59 Course - Re-evaluation Re-evalutation: EKG shows a heart rate of 74, normal sinus rhythm, poor wave progression, no ST elevation or depression. Previous EKG shows no obvious appreciable change. Given the above history and physical with findings as recorded, with elevated blood pressure, with transient chest discomfort, with a normal troponin and EKG as recorded, patient will be admitted to the hospitalist service for further evaluation and blood pressure management. I do believe the risk for pulmonary embolism and aortic dissection without shortness of breath, with vital signs as recorded, with no radiation of the back, looking extremely comfortable, to be u nlikely at this moment. - Vital Signs Vital signs: Temp Pulse Resp BP Pulse Ox 98.2 F 78 19 178/127 H 97 05/02/19 16:43 05/02/19 14:59 05/02/19 17:01 05/02/19 17:00 05/02/19 17:01 - Laboratory Result Diagrams: 05/02/19 15:25 05/02/19 15:25 Laboratory results interpreted by me: 05/02/19 05/02/19 05/02/19 15:25 15:25 15:25 RDW 14.7 H Carbon Dioxide 31 H Est GFR ( Amer) 57 L Est GFR (MDRD) Non-Af 47 L Glucose 124 H AST 39 H Urine Protein 30 H Discharge - Discharge Clinical Impression: Hypertensive urgency, Precordial chest pain Condition: Fair Disposition: ADMITTED OBSERVATION Admitting Provider: Lyla (Hospitalist) Unit Admitted: Telemetry
[2019-05-02] MEDS ORDERED: HYDRALAZINE HCL INJ/PF 20 MG/1 ML SDV IV ONE (18:30)
[2019-05-02] MEDS ORDERED: ACETAMINOPHEN 325 MG TABLET PO PRN (18:49)
[2019-05-02] MEDS ORDERED: TEMAZEPAM 15 MG CAPSULE PO PRN (18:49)
[2019-05-02] MEDS ORDERED: PROMETHAZINE HCL 25 MG TABLET PO PRN (18:49)
--- NOTE | 2019-05-02 19:00 | EKG REPORT ---
SEVERITY:- BORDERLINE ECG - SINUS RHYTHM BORDERLINE T WAVE ABNORMALITIES BORDERLINE PROLONGED QT INTERVAL : Confirmed by: Magno Rivera MD 02-May-2019 19:00:09
[2019-05-02] MEDS ORDERED: HYDRALAZINE HCL INJ/PF 20 MG/1 ML SDV IV PRN (19:01)
--- NOTE | 2019-05-02 19:28 | PDOC H&P ---
History of Present Illness Admission Date/PCP: 05/02/19 18:11 Patient complains of: Chest pain, kidney pain, hard knocking in her neck. She feels these are all related to her high blood pressure. History of Present Illness: ANMOL STEINBERG is a 53 year old female who reports hospitalization here in April but I could not find any record of an admission. Her last admission was summer 2018. She states that she has not taken any blood pressure medicines in the last 3 weeks because she ran out of medicines and she does not have a primary care provider. She claims that an appointment was not made for her with [facility] with her April discharge. Again I cannot find any records attributed to a April admission at this facility. She was seen in the emergency department on April 05 but it was an emergency department visit. Because she is out of medications her blood pressure is uncontrolled and extremely high. She presented at 199/117. She states she was having chest discomfort. It was not an elephant but may be a horse sitting on her chest. She said it radiated to her left arm. She received 2 doses of amlodipine in the emergency department. Her blood pressure is only slightly better. She states that her pain is better. She did receive sublingual nitroglycerin and this did not relieve her pain. Her lab work was relatively unremarkable. CBC was normal. Her serum glucose was slightly elevated but it was not a fasting specimen. Serum CO2 was also slightly elevated. Her EKG showed borderline prolonged QT with changes possibly related to old infarct. The EKG is exactly the same as it was in August 2018 and so there is no change from before and certainly no acute changes. The first troponin was less than 0.012. The patient will be admitted to the hospitalist service for observation. Past Medical History Cardiac Medical History: Reports: Hyperlipidema, Hypertension Denies: Atrial Fibrillation, Congestive Heart Failure, Coronary Artery Disease, DVT, Myocardial Infarction, Pulmonary Embolism Pulmonary Medical History: Reports: Respiratory Failure Denies: Asthma, Chronic Obstructive Pulmonary Disease (COPD) Neurological Medical History: Reports: Migraine Denies: Seizures Endocrine Medical History: Reports: Hypothyroidism - Had hyper parathyroid had XRT now has hypothyroidism Denies: Diabetes Mellitus Type 1, Diabetes Mellitus Type 2, Hyperthyroidism GI Medical History: Reports: Diverticulitis Denies: Cirrhosis, Crohn's Disease, Hepatitis, Ulcerative Colitis Psychiatric Medical History: Reports: Depression Hematology: Denies: Anemia, Bleeding Tendencies Past Surgical History Past Surgical History: Reports: Section - x3, Cholecystectomy, Hysterectomy Social History Information Source: Patient Lives with: Family - She lives with her daughter Smoking Status: Former Smoker Electronic Cigarette use?: No Frequency of Alcohol Use: None Hx Recreational Drug Use: No Drugs: None Hx Prescription Drug Abuse: No - Advance Directive Resuscitation Status: Do Not Resuscitate Surrogate healthcare decision maker:: She states that her daughter is very aware of this. Family History Family History: CAD, Hypertension, Other - Pulmonary embolus Parental Family History Reviewed: Yes Children Family History Reviewed: Yes Sibling(s) Family History Reviewed.: Yes Medication/Allergy Allergies/Adverse Reactions: tramadol Allergy (Verified 05/02/19 15:16) Review of Systems All systems: reviewed and no additional remarkable complaints except as stated Cardiovascular: PRESENT: chest pain, edema, palpitations Genitourinary: PRESENT: difficulty urinating Physical Exam Vital Signs: Temp Pulse Resp BP Pulse Ox 98.2 F 78 19 178/127 H 97 05/02/19 16:43 05/02/19 14:59 05/02/19 17:01 05/02/19 17:00 05/02/19 17:01 Intake & Output 05/01/19 05/02/19 05/03/19 06:59 06:59 06:59 Weight 129.2 kg General appearance: PRESENT: mild distress, morbidly obese, well-developed Head exam: PRESENT: atraumatic, normocephalic Eye exam: PRESENT: conjunctiva pink, periorbital swelling - Left eye only, other - Left upper eyelid is slightly swollen and slightly discolored. Appears pink. Ear exam: PRESENT: normal external ear exam. ABSENT: bleeding, drainage Mouth exam: PRESENT: moist, tongue midline Neck exam: PRESENT: other - Very large neck. ABSENT: carotid bruit, JVD, lymphadenopathy Respiratory exam: PRESENT: clear to auscultation key, symmetrical, unlabored. ABSENT: rales, rhonchi, tachypnea, wheezes Cardiovascular exam: PRESENT: RRR, +S1, +S2. ABSENT: systolic murmur Pulses: PRESENT: normal radial pulses, normal dorsalis pedis pul GI/Abdominal exam: PRESENT: normal bowel sounds, soft, other - Protuberant abdomen. ABSENT: guarding, mass, tenderness Rectal exam: PRESENT: deferred Gentrourinary exam: ABSENT: indwelling catheter Extremities exam: PRESENT: +1 edema Musculoskeletal exam: PRESENT: ambulatory Neurological exam: PRESENT: alert, awake, oriented to person, oriented to place, oriented to time, oriented to situation, CN II-XII grossly intact Psychiatric exam: PRESENT: appropriate affect. ABSENT: agitated, anxious Focused psych exam: ABSENT: delusional, paranoid, restlessness Skin exam: PRESENT: dry, warm Results Laboratory Results: 05/02/19 15:25 05/02/19 15:25 05/02/19 05/02/19 05/02/19 15:25 15:25 15:25 WBC 5.6 RBC 4.82 Hgb 14.7 Hct 42.6 MCV 88 MCH 30.6 MCHC 34.6 RDW 14.7 H Plt Count 176 Seg Neutrophils % 73.4 Sodium 143.7 Potassium 4.3 Chloride 104 Carbon Dioxide 31 H Anion Gap 9 BUN 14 Creatinine 1.21 Est GFR ( Amer) 57 L Glucose 124 H Calcium 9.5 Total Bilirubin 0.5 AST 39 H Alkaline Phosphatase 64 Total Protein 8.0 Albumin 4.5 Urine Color YELLOW Urine Appearance CLEAR Urine pH 7.0 Ur Specific [place] 1.018 Urine Protein 30 H Urine Glucose (UA) NEGATIVE Urine Ketones NEGATIVE Urine Blood NEGATIVE Urine RBC (Auto) 4 05/02/19 15:25 Troponin I < 0.012 Impressions: Chest X-Ray 05/02/19 15:16 IMPRESSION: NO ACUTE RADIOGRAPHIC FINDING IN THE CHEST. Assessment and Plan - Diagnosis (1) Hypertensive emergency Is this a current diagnosis for this admission?: Yes (2) Chest pain Qualifiers: Chest pain type: chest pain due to myocardial ischemia Ischemic chest pain type: unspecified angina pectoris type Qualified Code(s): I25.9 - Chronic ischemic heart disease, unspecified Is this a current diagnosis for this admission?: Yes (3) Polyneuropathy Is this a current diagnosis for this admission?: Yes (4) Morbid obesity Is this a current diagnosis for this admission?: Yes (5) Hypothyroidism (acquired) Is this a current diagnosis for this admission?: Yes (6) Noncompliance with medication regimen Is this a current diagnosis for this admission?: Yes - Plan Summary Summary: 05/02/2019 The patient will be started back on her home medication regimen as best we can determine. This consists of lisinopril and amlodipine. I will add low-dose furosemide as well. We cannot use diltiazem or metoprolol as she is borderline bradycardic. We will try and reduce her blood pressure by approximately 30% to 40%. The bigger challenge will be compliance to her medication regimen with no insurance. We also have to make sure [facility]. We will restart gabapentin 300 mg every 8 hours for neuropathy We will resume atorvastatin 40 mg daily We will resume levothyroxine 137 mcg daily there is no point in checking at TSH as it will be elevated. She did say that her Medicaid application is being reviewed and evidently she has also put in for disability. I asked her what diagnosis for the disability and she gave me several including her neuropathy and blood pressure but her blood pressure is uncontrolled because of noncompliance. - Time Time Spent with patient: 35 or more minutes Medications reviewed and adjusted accordingly: Yes Anticipated discharge: Home Within: within 48 hours
[2019-05-02] MEDS ORDERED: ATORVASTATIN CALCIUM 40 MG TABLET PO SCH (22:00)
[2019-05-02] MEDS: HEPARIN SOD (PORCINE) 5,000 UNIT/ML 1 ML VIAL SUBCUT SCH (22:50)
[2019-05-02] MEDS: GABAPENTIN 300 MG CAPSULE PO SCH (23:15)
[2019-05-02] MEDS: LISINOPRIL 5 MG TABLET PO SCH (23:16)
[2019-05-02] MEDS: FAMOTIDINE 20 MG TABLET PO SCH (23:18)
[2019-05-03] MEDS ORDERED: LEVOTHYROXINE SODIUM 0.112 MG TABLET PO SCH (06:00)
[2019-05-03] MEDS ORDERED: LEVOTHYROXINE SODIUM 0.025 MG TABLET PO SCH (06:00)
[2019-05-03] MEDS: HEPARIN SOD (PORCINE) 5,000 UNIT/ML 1 ML VIAL SUBCUT SCH ×2 (08:20→13:03)
[2019-05-03] MEDS: GABAPENTIN 300 MG CAPSULE PO SCH ×2 (08:31→13:03)
[2019-05-03] MEDS ORDERED: AMLODIPINE BESYLATE 10 MG TABLET PO SCH (10:00)
[2019-05-03] MEDS ORDERED: ASPIRIN 81 MG TABLET, ENT COATED PO SCH (10:00)
[2019-05-03] MEDS ORDERED: FUROSEMIDE 20 MG TABLET PO SCH (10:00)
[2019-05-03] MEDS: LISINOPRIL 5 MG TABLET PO SCH (10:10)
[2019-05-03] MEDS: FAMOTIDINE 20 MG TABLET PO SCH (10:10)
[2019-05-03 12:34] VITALS: BP 131/80
--- NOTE | 2019-05-03 13:58 | PDOC DISCHARGE SUMMARY ---
Impression - Admit/DC Date/PCP Admission Date/Primary Care Provider: 05/02/19 18:11 Discharge Date: 05/03/19 - Discharge Diagnosis (1) Hypertensive emergency Is this a current diagnosis for this admission?: Yes (2) Chest pain Is this a current diagnosis for this admission?: Yes (3) Polyneuropathy Is this a current diagnosis for this admission?: Yes (4) Morbid obesity Is this a current diagnosis for this admission?: Yes (5) Hypothyroidism (acquired) Is this a current diagnosis for this admission?: Yes (6) Noncompliance with medication regimen Is this a current diagnosis for this admission?: Yes - Assessment Summary: 05/02/2019 The patient will be started back on her home medication regimen as best we can determine. This consists of lisinopril and amlodipine. I will add low-dose furosemide as well. We cannot use diltiazem or metoprolol as she is borderline bradycardic. We will try and reduce her blood pressure by approximately 30% to 40%. The bigger challenge will be compliance to her medication regimen with no insurance. We also have to make sure she gets established with [facility]. We will restart gabapentin 300 mg every 8 hours for neuropathy We will resume atorvastatin 40 mg daily We will resume levothyroxine 137 mcg daily there is no point in checking at TSH as it will be elevated. She did say that her Medicaid application is being reviewed and evidently she has also put in for disability. I asked her what diagnosis for the disability and she gave me several including her neuropathy and blood pressure but her b lood pressure is uncontrolled because of noncompliance. - Additional Information Resuscitation Status: Full Code Discharge Diet: Cardiac Discharge Activity: Activity As Tolerated, Slowly Increase Activity, Other - Slowly engage in daily exercise Referrals: [facility] [Provider Group] - 05/04/19 11:00 am Prescriptions: Furosemide [Lasix 20 mg Tablet] 20 mg PO DAILY 30 Days #30 tablet Levothyroxine Sodium [Levo-T] 137 mcg PO DAILY 30 Days #30 tablet Atorvastatin Calcium [Lipitor 40 mg Tablet] 40 mg PO QHS 30 Days #30 tablet Gabapentin [Neurontin 300 mg Capsule] 300 mg PO Q8 30 Days #90 capsule Amlodipine Besylate [Norvasc 10 mg Tablet] 10 mg PO DAILY 30 Days #30 tablet Lisinopril [Prinivil 5 mg Tablet] 5 mg PO Q12 30 Days #60 tablet Home Medications: Amlodipine Besylate [Norvasc 10 mg Tablet] 10 mg PO DAILY 30 Days #30 tablet 05/03/19 Aspirin [Ecotrin 81 mg EC Tablet] 81 mg PO DAILY tabec 05/03/19 Atorvastatin Calcium [Lipitor 40 mg Tablet] 40 mg PO QHS 30 Days #30 tablet 05/03/19 Famotidine [Pepcid 20 mg Tablet] 20 mg PO Q12 tablet 05/03/19 Furosemide [Lasix 20 mg Tablet] 20 mg PO DAILY 30 Days #30 tablet 05/03/19 Gabapentin [Neurontin 300 mg Capsule] 300 mg PO Q8 30 Days #90 capsule 05/03/19 Levothyroxine Sodium [Levo-T] 137 mcg PO DAILY 30 Days #30 tablet 05/03/19 Lisinopril [Prinivil 5 mg Tablet] 5 mg PO Q12 30 Days #60 tablet 05/03/19 History of Present Illiness History of Present Illness: ANMOL STEINBERG is a 53 year old female who reports hospitalization here in April but I could not find any record of an admission. Her last admission was summer 2018. She states that she has not taken any blood pressure medicines in the last 3 weeks because she ran out of medicines and she does not have a primary care provider. She claims that an appointment was not made for her with [facility] with her April discharge. Again I cannot find any records attributed to a April admission at this facility. She was seen in [facility] emergency department on April 05 but it was an emergency department visit. Because she is out of medications her blood pressure is uncontrolled and extremely high. She presented at 199/117. She states she was having chest discomfort. It was not an elephant but may be a horse sitting on her chest. She said it radiated to her left arm. She received 2 doses of amlodipine in the emergency department. Her blood pressure is only slightly better. She states that her pain is better. She did receive sublingual nitroglycerin and this did not relieve her pain. Her lab work was relatively unremarkable. CBC was normal. Her serum glucose was slightly elevated but it was not a fasting specimen. Serum CO2 was also slightly elevated. Her EKG showed borderline prolonged QT with changes possibly related to old infarct. The EKG is exactly the same as it was in August 2018 and so there is no change from before and certainly no acute changes. The first troponin was less than 0.012. The p atient will be admitted to the hospitalist service for observation. Hospital Course Hospital Course: The patient had a benign hospital course. Once she was resumed on her reported medication regimen her blood pressure improved significantly. She was reminded that she must be compliant with medications and follow-up visits. She is waiting Medicaid/disability application results. In the meantime we will set her up with [facility] and I will provide a 30-day supply of medications for the patient. Physical Exam Vital Signs: Temp Pulse Resp BP Pulse Ox 97.8 F 52 L 16 131/80 H 99 05/03/19 11:58 05/03/19 11:58 05/03/19 11:58 05/03/19 11:58 05/03/19 11:58 Intake & Output 05/02/19 05/03/19 05/04/19 06:59 06:59 06:59 Output Total 150 Balance -150 Weight 129 kg General appearance: PRESENT: no acute distress Respiratory exam: PRESENT: clear to auscultation key, symmetrical, unlabored. ABSENT: rales, rhonchi, tachypnea, wheezes Cardiovascular exam: PRESENT: RRR, +S1, +S2 GI/Abdominal exam: PRESENT: normal bowel sounds, soft, other - Protuberant abdomen. ABSENT: guarding, tenderness Neurological exam: PRESENT: alert, awake, oriented to person, oriented to place, oriented to time, oriented to situation, CN II-XII grossly intact Psychiatric exam: PRESENT: anxious. ABSENT: agitated Focused psych exam: ABSENT: delusional, restlessness Results Laboratory Results: WBC 5.6 10^3/uL (4.0-10.5) 05/02/19 15:25 RBC 4.82 10^6/uL (3.72-5.28) 05/02/19 15:25 Hgb 14.7 g/dL (12.0-15.5) 05/02/19 15:25 Hct 42.6 % (36.0-47.0) 05/02/19 15:25 MCV 88 fl (80-97) 05/02/19 15:25 MCH 30.6 pg (27.0-33.4) 05/02/19 15:25 MCHC 34.6 g/dL (32.0-36.0) 05/02/19 15:25 RDW 14.7 % (11.5-14.0) H 05/02/19 15:25 Plt Count 176 10^3/uL (150-450) 05/02/19 15:25 Lymph % (Auto) 21.9 % (13-45) 05/02/19 15:25 Lares % (Auto) 4.0 % (3-13) 05/02/19 15:25 Eos % (Auto) 0.1 % (0-6) 05/02/19 15:25 Baso % (Auto) 0.6 % (0-2) 05/02/19 15:25 Absolute Neuts (auto) 4.1 10^3/uL (1.7-8.2) 05/02/19 15:25 Absolute Lymphs (auto) 1.2 10^3/uL (0.5-4.7) 05/02/19 15:25 Absolute Monos (auto) 0.2 10^3/uL (0.1-1.4) 05/02/19 15:25 Absolute Eos (auto) 0.0 10^3/uL (0.0-0.6) 05/02/19 15:25 Absolute Basos (auto) 0.0 10^3/uL (0.0-0.2) 05/02/19 15:25 Seg Neutrophils % 73.4 % (42-78) 05/02/19 15:25 Sodium 143.7 mmol/L (137-145) 05/02/19 15:25 Potassium 4.3 mmol/L (3.6-5.0) 05/02/19 15:25 Chloride 104 mmol/L (98-107) 05/02/19 15:25 Carbon Dioxide 31 mmol/L (22-30) H 05/02/19 15:25 Anion Gap 9 (5-19) 05/02/19 15:25 BUN 14 mg/dL (7-20) 05/02/19 15:25 Creatinine 1.21 mg/dL (0.52-1.25) 05/02/19 15:25 Est GFR ( Amer) 57 (>60) L 05/02/19 15:25 Est GFR (MDRD) Non-Af 47 (>60) L 05/02/19 15:25 Glucose 124 mg/dL (75-110) H 05/02/19 15:25 Calcium 9.5 mg/dL (8.4-10.2) 05/02/19 15:25 Total Bilirubin 0.5 mg/dL (0.2-1.3) 05/02/19 15:25 Direct Bilirubin 0.3 mg/dL (0.0-0.4) 05/02/19 15:25 Neonat Total Bilirubin Not Reportable 05/02/19 15:25 Neonat Direct Bilirubin Not Reportable 05/02/19 15:25 Neonat Indirect Bili Not Reportable 05/02/19 15:25 AST 39 U/L (14-36) H 05/02/19 15:25 ALT 25 U/L (<35) 05/02/19 15:25 Alkaline Phosphatase 64 U/L (38-126) 05/02/19 15:25 Troponin I < 0.012 ng/mL 05/03/19 02:31 Total Protein 8.0 g/dL (6.3-8.2) 05/02/19 15:25 Albumin 4.5 g/dL (3.5-5.0) 05/02/19 15:25 Urine Color YELLOW 05/02/19 15:25 Urine Appearance CLEAR 05/02/19 15:25 Urine pH 7.0 (5.0-9.0) 05/02/19 15:25 Ur Specific Sterling 1.018 05/02/19 15:25 Urine Protein 30 mg/dL (NEGATIVE) H 05/02/19 15:25 Urine Glucose (UA) NEGATIVE mg/dL (NEGATIVE) 05/02/19 15:25 Urine Ketones NEGATIVE mg/dL (NEGATIVE) 05/02/19 15:25 Urine Blood NEGATIVE (NEGATIVE) 05/02/19 15:25 Urine Nitrite (Reflex) NEGATIVE (NEGATIVE) 05/02/19 15:25 Urine Bilirubin NEGATIVE (NEGATIVE) 05/02/19 15:25 Urine Urobilinogen NEGATIVE mg/dL (<2.0) 05/02/19 15:25 Leukocyte Esterase Rfl NEGATIVE (NEGATIVE) 05/02/19 15:25 Urine RBC (Auto) 4 /HPF 05/02/19 15:25 Urine WBC (Reflex) 1 /HPF 05/02/19 15:25 Squamous Epi Cells Auto 1 /HPF 05/02/19 15:25 Urine Mucus (Auto) RARE /LPF 05/02/19 15:25 Urine Ascorbic Acid NEGATIVE (NEGATIVE) 05/02/19 15:25 05/02/19 05/02/19 05/03/19 15:25 22:41 02:31 Troponin I < 0.012 < 0.012 < 0.012 Impressions: Chest X-Ray 05/02/19 15:16 IMPRESSION: NO ACUTE RADIOGRAPHIC FINDING IN THE CHEST. Plan Health Concerns: Ongoing medical compliance and morbid obesity Plan of Treatment: [facility] Continue compliance with medication regimen and strongly consider weight loss management. Goals: Better control of medical comorbidities Time Spent: Greater than 30 Minutes Stroke Is this a Stroke Patient?: No Acute Heart Failure - Is this a Heart Failure Patient?: No
== END 2019-05-03 15:58 | disposition home or self-care (01) ==
LOC: ER 14:47 → EH 18:11 → 4S 22:03
PROVIDERS: ADMIT Hospitalist; ATTEND Hospitalist
DX: I16.1 Hypertensive emergency (principal); R07.89 Other chest pain; G62.9 Polyneuropathy, unspecified; E66.01 Morbid (severe) obesity due to excess calories; E03.9 Hypothyroidism, unspecified; R00.1 Bradycardia, unspecified; R94.31 Abnormal electrocardiogram [ECG] [EKG]; R00.2 Palpitations; R60.9 Edema, unspecified; R39.198 Other difficulties with micturition; H02.844 Edema of left upper eyelid; R11.2 Nausea with vomiting, unspecified; R05 Cough; J34.89 Other specified disorders of nose and nasal sinuses; R10.9 Unspecified abdominal pain; Z91.14 Patient's other noncompliance with medication regimen; R06.00 Dyspnea, unspecified; Z87.891 Personal history of nicotine dependence; E78.5 Hyperlipidemia, unspecified; R73.09 Other abnormal glucose; Z82.49 Family history of ischemic heart disease and other diseases of the circulatory system; Z66 Do not resuscitate; Z86.711 Personal history of pulmonary embolism; Z92.3 Personal history of irradiation; Z87.09 Personal history of other diseases of the respiratory system
CPT/HCPCS: 93005; 99285; 96374; 36415 ×2; 85025; 80053; 81001; 84484 ×2; 71046; 93010; 97530; 97116; 97161; G0378 ×3; J1644 ×2; J0360; J3490 ×2

== ENCOUNTER 2019-08-08 10:51 | Emergency (ER) | payer MEDICAID ==
[2019-08-08] MEDS ORDERED: LIDOCAINE 2% VISCOUS SOLN 15 ML UDCUP PO ONE (11:35)
[2019-08-08] MEDS ORDERED: PENICILLIN V POTASSIUM 500 MG TABLET PO ONE (11:35)
[2019-08-08] MEDS ORDERED: ACETAMINOPHEN 325 MG TABLET PO ONE (11:35)
--- NOTE | 2019-08-08 11:40 | ER Document Report ---
ED Fall - General Chief Complaint: Fall Injury Stated Complaint: FALL/RIGHT LEG PAIN,JAW PAIN Time Seen by Provider: 08/08/19 11:25 Primary Care Provider: JAMISON SIBLEY DO [Primary Care Provider] - Follow up as needed Mode of Arrival: Ambulatory Information source: Patient Notes: 54-year-old female presented to ED for fall while building a deck. She states she slipped and hit her jaw on the rail and her knee on a board on the rail and a knee on a board. She states she did take some ibuprofen. She did knock her tooth out. She does not have the tooth with her. We will get a x-ray of her mandible, her right knee, treated with penicillin VK and viscous lidocaine for the discomfort to the mouth and some Tylenol to the knee and then reassess after the x-rays. TRAVEL OUTSIDE OF THE [place] IN LAST 30 DAYS: No - HPI Occurred: Yesterday Where: Home, Outdoors Context: Slipped Associated symptoms: None Location of injury/pain: Knee, Other - Jaw Quality of pain: Sharp Severity: Moderate Pain Level: 4 - Related data Allergies/Adverse Reactions: tramadol Allergy (Verified 05/02/19 15:16) Past Medical History - General Information source: Patient - Social History Smoking Status: Never Smoker Chew tobacco use (# tins/day): No Frequency of alcohol use: None Drug Abuse: None Lives with: Family Family History: CAD, Hypertension, Other - Pulmonary embolus Patient has homicidal ideation: No - Past Medical History Cardiac Medical History: Reports: Hx Hypercholesterolemia, Hx Hypertension Pulmonary Medical History: Reports: Hx Respiratory Failure EENT Medical History: Reports: None Neurological Medical History: Reports: Hx Migraine Endocrine Medical History: Reports: Hx Hypothyroidism - Had hyper parathyroid had XRT now has hypothyroidism Renal/ Medical History: Reports: None Malignancy Medical History: Reports: None GI Medical History: Reports: Hx Diverticulitis, Hx Colonoscopy - Polypectomy Musculoskeletal Medical History: Reports Hx Musculoskeletal Deformity - 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, Reports Hx Musculoskeletal Trauma Skin Medical History: Reports None Psychiatric Medical History: Reports: Hx Depression Infectious Medical History: Reports: None Past Surgical History: Reports: Hx Section - x3, Hx Cholecystectomy, Hx Hysterectomy - Immunizations Hx Diphtheria, Pertussis, Tetanus Vaccination: No Review of Systems - Review of Systems Constitutional: No symptoms reported EENT: Mouth pain, Mouth swelling, Dental problem Cardiovascular: No symptoms reported Respiratory: No symptoms reported Gastrointestinal: No symptoms reported Genitourinary: No symptoms reported Female Genitourinary: No symptoms reported Musculoskeletal: Joint pain, Joint swelling - Right knee Skin: Change in color - Bruising to the right knee Hematologic/Lymphatic: No symptoms reported Neurological/Psychological: No symptoms reported -: Yes All other systems reviewed and negative Physical Exam - Vital signs Vitals: Temp 97.9 F 08/08/19 10:52 Interpretation: Normal - General General appearance: Appears well, Alert - HEENT Head: Normocephalic, Atraumatic Eyes: Normal Pupils: PERRL Teeth diagram: 1 - Tooth missing - Respiratory Respiratory status: No respiratory distress Chest status: Nontender Breath sounds: Normal Chest palpation: Normal - Cardiovascular Rhythm: Regular Heart sounds: Normal auscultation Murmur: No - Abdominal Inspection: Normal Distension: No distension Bowel sounds: Normal Tenderness: Nontender Organomegaly: No organomegaly - Back Back: Normal, Nontender - Extremities General upper extremity: Normal inspection, Nontender, Normal color, Normal ROM, Normal temperature General lower extremity: Normal inspection, Nontender, Normal color, Normal ROM, Normal temperature, Normal weight bearing. No: Jordyn's sign - Neurological Neuro grossly intact: Yes Cognition: Normal Orientation: AAOx4 Flavia Coma Scale Eye Opening: Spontaneous Flavia Coma Scale Verbal: Oriented Chester Coma Scale Motor: Obeys Commands Chester Coma Scale Total: 15 Speech: Normal Motor strength normal: LUE, RUE, LLE, RLE Sensory: Normal - Psychological Associated symptoms: Normal affect, Normal mood - Skin Skin Temperature: Warm Skin Moisture: Dry Skin Color: Normal Course - Re-evaluation Re-evalutation: 08/08/19 23:17 X-ray of the knee and mandible were both negative for any acute radiological injuries. Patient was treated with a Adán wrap and crutches for her pain in the knee and she was given Tylenol viscous lidocaine and penicillin for her mouth injury. Patient was instructed to follow-up with orthopedics and or dentist. Patient verbalized understanding and agreement with treatment plan patient was discharged home. - Vital Signs Vital signs: Temp Pulse Resp BP Pulse Ox 98.0 F 68 18 148/91 H 100 08/08/19 13:52 08/08/19 13:52 08/08/19 13:52 08/08/19 13:52 08/08/19 13:52 - Diagnostic Test Radiology reviewed: Image reviewed, Reports reviewed Procedures - Immobilization Right Knee Time completed: 13:47 Immobilizer type: Adán wrap, Crutches Performed by: PCT Post-Proc Neuro Vasc Exam: Normal Alignment checked and good: Yes Discharge - Discharge Clinical Impression: Dental pain for a lost tooth that was knocked Contusion of knee, right Qualifiers: Encounter type: initial encounter Qualified Code(s): S80.01XA - Contusion of right knee, initial encounter Condition: Stable Disposition: HOME, SELF-CARE Instructions: Dentist Additional Instructions: CONTUSION: Your injury has resulted in a contusion -- a crushing of the deep tissues. No injury to important structures was detected during the physician's exam. Contusions vary in the amount of pain they cause, and in the length of time required for healing. Typically, the area will become bruised, and will remain painful to touch for two or three weeks. However, most patients are back to working and playing within a few days. After the initial period of rest and cold-packs, your symptoms (together with the doctor's recommendations) will determine how rapidly you can get back to full activity. Usually this means "do what feels okay, but don't do things that hurt." If re-examination was recommended, it's important to follow up as instructed. Call the doctor or return any time if pain increases, if swelling becomes severe, if you develop numbness or weakness in an injured extremity, or if any other alarming symptoms occur. You were also seen for a injury to your face where 1 your teeth were knocked out. The tooth is all the way out. You need will need will need to follow-up with a dentist concerning this area. Swelling or increasing pain, numbness, or loss of vision. USE OF TYLENOL (ACETAMINOPHEN): Acetaminophen may be taken for pain relief or fever control. It's much safer than aspirin, offering a wider range of "safe" dosages. It is safe during . Some brand names are Tylenol, Panadol, Datril, Anacin 3, Tempra, and Liquiprin. Acetaminophen can be repeated every four hours. The following are maximum recommended dosages: WEIGHT Dose Drops Elixir Chewable(80mg) (LBS.) drprs=droppers tsp=teaspoon 6 40 mg 0.4 ml (1/2) 6-11 80 mg 0.8 ml (full) tsp 1 tab 12-16 120 mg 1 1/2 drprs 3/4 tsp 1 1/2 tabs 17-23 160 mg 2 drprs 1 tsp 2 tabs 24-30 240 mg 3 drprs 1 1/2 tsp 3 tabs 30-35 320 mg 2 tsp 4 tabs 36-41 360 mg 2 1/4 tsp 4 1/2 tabs 42-47 400 mg 2 1/2 tsp 5 tabs 48-53 480 mg 3 tsp 6 tabs 54-59 520 mg 3 1/4 tsp 6 1/2 tabs 60-64 560 mg 3 1/2 tsp 7 tabs 65-70 600 mg 3 3/4 tsp 7 1/2 tabs 71-76 640 mg 4 tsp 8 tabs 77-82 720 mg 4 1/2 tsp 9 tabs 83-88 800 mg 5 tsp 10 tabs >89 pounds or adults 650 mg to 900 mg Acetaminophen can be repeated every four hours. Maximum dose not to exceed 4000 mg a day. These maximum recommended dosages are slightly higher than the dosages written on the product container, but these dosages are very safe and below the toxic dosage for acetaminophen. ICE PACKS: Apply ice packs frequently against the painful area. Many different schedules are recommended, such as "20 minutes on, 20 minutes off" or "one hour ice, two hours rest." If you need to work, you may need to go longer between ice treatments. You should plan to have the area ice packed AT LEAST one fourth of the time. The ice should be applied over the wrap, tape, or splint, or over a layer of cloth -- not directly against the skin. Some ice bags have a built-in cloth and can be put directly on the skin. WARM PACKS: After approximately two days, apply gentle heat (such as a heating pad or hot water bottle) for about 20 to 30 minutes about every two hours -- at least four times daily. Warmth and elevation will help you make a more rapid recovery, and will ease the pain considerably. Do not use HOT heat, and never apply heat for longer than 30 minutes. The continuous heat can invisibly damage skin and muscles -- even when no burn is seen on the surface. Damaged muscles can make you MORE sore. Penicillin VK You have been given a prescription for Penicillin VK. Your physician has determined that this is the best antibiotic for your condition. Pen VK can be taken with meals, however more of the antibiotic gets into the bloodstream if it's taken on an empty stomach. Penicillin usually has no side effects. However, allergy to penicillins is common. If you have had an allergic reaction to any drug of the penicillin family, you should never take any other penicillin. Notify your doctor at once if you develop hives, itching, swelling, faintness, or shortness of breath. FOLLOW-UP CARE: If you have been referred to a physician for follow-up care, call the physicians office for an appointment as you were instructed or within the next two days. If you experience worsening or a significant change in your symptoms, notify the physician immediately or return to the Emergency Department at any time for re-evaluation. Prescriptions: Penicillin V Potassium [Penicillin Vk 500 mg Tablet] 500 mg PO BID #20 tablet Penicillin V Potassium [Penicillin Vk 500 mg Tablet] 500 mg PO BID #20 tablet Forms: Elevated Blood Pressure, Smoking Cessation Education Referrals: JAMISON SIBLEY DO [Primary Care Provider] - Follow up as needed
--- NOTE | 2019-08-08 12:23 | RADIOLOGY REPORT (SQ) ---
EXAM DESCRIPTION: KNEE RIGHT 4 VIEWS IMAGES COMPLETED DATE/TIME: 08/08/2019 11:58 am REASON FOR STUDY: fall injury COMPARISON: 04/05/2019 NUMBER OF VIEWS: Four views. TECHNIQUE: AP, lateral, and both oblique radiographic images acquired of the right knee. LIMITATIONS: None. FINDINGS: MINERALIZATION: Normal. BONES: No acute fracture or dislocation. No worrisome bone lesions. JOINT: Osteoarthritis medial compartment. No effusion. SOFT TISSUES: No soft tissue swelling. No radio-opaque foreign body. OTHER: No other significant finding. IMPRESSION: NO RADIOGRAPHIC EVIDENCE OF ACUTE INJURY. TECHNICAL DOCUMENTATION: JOB ID: [id number] 2010 [employer]- All Rights Reserved Reading location - IP/workstation name: [email or web address]
--- NOTE | 2019-08-08 12:24 | RADIOLOGY REPORT (SQ) ---
EXAM DESCRIPTION: MANDIBLE 4 VIEWS OR MORE IMAGES COMPLETED DATE/TIME: 08/08/2019 11:58 am REASON FOR STUDY: fall injury COMPARISON: None. NUMBER OF VIEWS: Four view. TECHNIQUE: Images of the mandible acquired. AP, Layo's, angled right, angled left mandible images. LIMITATIONS: None. FINDINGS: MANDIBLE: No acute fracture. No disruption of the right or left temporomandibular joints. ORBITS: No fracture. No foreign body. SINUSES: No mucosal thickening. No air fluid levels. FACIAL BONES: No fracture. OTHER: No other significant finding. IMPRESSION: NO ACUTE FRACTURE OR MALALIGNMENT. TECHNICAL DOCUMENTATION: JOB ID: [id number] 2010 [employer]- All Rights Reserved Reading location - IP/workstation name: [email or web address]
[2019-08-08 13:57] VITALS: BP 148/91
== END 2019-08-08 13:52 | disposition home or self-care (01) ==
LOC: ER 10:51
DX: S80.01XA Contusion of right knee, initial encounter (principal); K08.9 Disorder of teeth and supporting structures, unspecified; W01.198A Fall on same level from slipping, tripping and stumbling with subsequent striking against other object, initial encounter; Y92.009 Unspecified place in unspecified non-institutional (private) residence as the place of occurrence of the external cause; E78.00 Pure hypercholesterolemia, unspecified; I10 Essential (primary) hypertension; Z90.49 Acquired absence of other specified parts of digestive tract
CPT/HCPCS: 99283; 73564; 70110; J3490 ×3